=== PATIENT | female | born 1940 | race Caucasian/White ===

== ENCOUNTER 2018-03-22 09:30 | Outpatient (RCR) | payer MEDICARE, BC, SELFPAY ==
--- NOTE | 2018-02-27 09:00 | IE_ITS ---
Date: February 27, 2018 Referring: Susie Arguello NP M.D. Diagnosis: LBP P.T. Diagnosis: Same SUBJECTIVE: History of Present Illness: 'Leda complains of intermittent discomfort throughout the lower lumbar area, which migrates into the buttock region, occasionally posterior aspect of the thighs. This generally occurs when standing or walking for more than a few mins and with prolonged sitting. Does not interfere with her sleeping pattern, no complaints of a.m. stiffness. Generally worse towards the latter part of the day. Does not hurt with coughing or sneezing. A 77 year old female with chronic lumbago, has been more noticeable over the past year to the point where it is difficult for her stand or walk for any prolonged periods. Pain Ratin-7/10 Pain Location: Throughout the lower lumbar area, buttocks and posterior thighs. Current Level of Function: Has difficulty walking for more than a couple 100 feet before sitting, then also occurs after sitting for more than 15-20 mins. She feels better when taking her Ibuprofen, but then was switched to Tylenol recently, she is going to discuss this with her PCP. She can only lift light weights. She finds herself leaning over a shopping cart when grocery shopping. Previous Treatment: No imaging tests performed. Social: , has a home in [facility] and spends 3 months of the winter in [place]. She has given up on gardening, etc. . . due to her discomfort. Comorbidities: Incontinence. Falls in the last year: __X__ No ____Yes - How many? ____ - (if over 2, balance SM needs to be completed) Reported hospitalizations in the last year - __X__ No ____ Yes - Dates of admission/reason: Medications: Tylenol prn Quality of Life: ____ Excellent ____ Good __X__ Fair ____ Poor Standardized Measures: MOLBPDQ: __42%__ OBJECTIVE: Posture: Is obese with accentuated lumbar lordosis and anterior flexed posture , (-) lateral shift. Observation: (behavior, atrophy, skin color, etc.) No abnormal pain behavior noted, pleasant. Gait: Ambulates without assistive device with minimal antalgia bilaterally during stance phase. She is able to heel raise, as well as stand on her heels, but walking on her toes and heels are difficult due to unsteadiness. Palpation: Some increased tenderness throughout the L QL and bilaterally through the piriformis, otherwise non-tender. ROM: Her lumbar movements are significantly limited within an articular pattern, extension is at 0 degrees and sidebending distance between fingertips and lateral joint line of the knees approximately 6. These cause some mild lumbago. Flexion she is able to touch fingertips to floor. Bilateral hip motion is non-irritable with her IR at 30-40 degrees. (She is s/ p bilateral TKA). Joint Accessory Motion: She has hypomobility with PA glides to the lumbar spine with minimal discomfort. Strength: Has full motor control with weak gluteus medius at 4/5. Neuro: Hyporeflexive. Sensation is intact, again has full motor control. Special Tests: (-) SLR bilaterally, hamstring length at approximately 80 degrees, (-) Shelley's test, (-) slump test. She has poor reversal of her lumbar lordosis with flexion. Treatment: Evaluation long with development of a home program. IE: [id number] Therapeutic procedures ([id number]). Direct treatment time: 60 MINS Total treatment time: 60 MINS ASSESSMENT: Patient is a 77-year-old female, referred for PT services with the diagnosis of lumbago. Patient presents with clinical signs and symptoms consistent with this diagnosis and probable spinal stenosis, as demonstrated by the following impairment level findings: significant loss of motion within an articular pattern of lumbar spine, along with difficulty standing for more than 5-10 mins. Impairments are contributing to the following functional limitations: Difficulty standing, walking or sitting for prolonged periods. Patient is assessed as: __X__ Low 12305 ____ Moderate 34635 ____ High 65261 complexity, based on the following: History: (list): Chronic lumbago with probable spinal stenosis. See comorbidities and social history. Examination: (list): X See above for functional limitations and impairments. Presentation: X Stable . Evolving Unstable Decision-Making: Low complexity X Moderate complexity High complexity % Disability based on MOLBPDQ of 42% __X__ Patient requires skilled PT intervention to remediate the above functional limitations to return to: __x__ Improve QOL ____ Other: Prognosis: ____ Excellent ____ Good __x__ Fair ____ Poor G-Codes (fill in modifier after appropriate code): Patient's primary functional limitation is in the category of: __X__ Mobility - walking and moving around : [id number] Projected goal: __X__ Mobility - walking and moving around: [id number] STG: __6__ weeks. 1: Improve lumbar segmental mobility in hopes of increasing her ability to stand and sit for prolonged periods, up to an hour. 2: Improve deconditioned state 3: Desensitize trigger points for less pain. LTG: __12__ weeks. 1: Improve her quality of life. 2: Improvement in her ability to stand for longer than 1 hour PLAN: Session today consisted of the evaluation along with development of a HEP focusing on prone extension, being careful not exacerbate her symptoms. Also issue her a tennis ball for trigger point release techniques. Encourage her to contact her PCP and discuss her medication, the fact that her symptoms have intensified since cutting back on her Ibuprofen and switching to Tylenol, see if there other alternatives, etc. . . Also work on her deconditioned state with core strengthening and some aerobic activities to tolerance, along with manual therapy to the articular and soft tissue structures. If her symptoms persist after a prolonged period of approximately 4-6 weeks, would recommend imaging tests, possible referral to the pain clinic, based on imaging findings, etc. . . Thank you for this referral. Please do not hesitate to contact me with any questions or concerns regarding this patient's plan of care. *Susie, please sign this evaluation and return to PT if you are in agreement with the above stated plan of care. Susie Way NP
--- NOTE | 2018-03-01 11:29 | PTTR_ITS ---
DATE: 03/01/18 OBJECTIVE: Manual therapy: ([id number]). Pt received STM and trigger point release techniques throughout the lower lumbar para spinals, QL, and glute med region. Therapeutic procedures ([id number]). * X Provided skilled instruction in proper exercise performance: Pt completed intrinsic core stabilization ther ex and glute strengthening as per flow flow sheet. Pt required a significant amount of cueing with her ther ex today. I issued pt a HEP with posterior pelvic tilts and kegals. Pt ended today' s session with MHP for 10 min while in prone. Direct treatment time: 35 Total treatment time: 45
--- NOTE | 2018-03-06 09:50 | PTTR_ITS ---
DATE: 03/06/18 SUBJECTIVE: Janett states that she was not compliant with her HEP since she has been seen last. She states that she went to a wedding so they did a lot of driving and she also reports today that she is dizzy. OBJECTIVE: Manual therapy: ([id number]). In the prone position receiving deep tissue mobilization and trigger point release techniques throughout (B) glute med regions, piriformis. Pt was also scanned throughout the lower lumbar QL regions but was non symptomatic. Pt then ended with moist heat in the prone position for 10 minutes. Therapeutic procedures (67319k4). Pt's vitals were taken pre and post see flow sheet for specifics. Pt's vitals were fairly WNL so pt was thinking that her dizziness was a contributor to vertigo. Pt had eaten breakfast this morning so she completed core stabilization, glute strengthening activities as per flow sheet working on deep pelvic floor, intrinsic stabilization activities. Pt required a significant amount of tactile and verbal cueing throughout her session today and we excluded the Nustep today just due to pt's dizziness. Direct treatment time: 40 minutes Total treatment time: 50 minutes
--- NOTE | 2018-03-08 10:50 | PTTR_ITS ---
DATE: 03/08/18 SUBJECTIVE: Pt reports some dizziness especially in the morning or when changing positions i.e. standing from seated. OBJECTIVE: Therapeutic procedures (30350i0). * X See flow sheet: Continued pt's strengthening program for spine stabilization including Kegels, PPT, elevated march. See flow sheet for details. * X Provided skilled instruction in proper exercise performance: Pt requires max verbal cues for proper form and muscle recruitment. * X Provided skilled manual cues to facilitate proper muscle recruitment and/ or movement pattern: Pt requires max tactile cues for proper exercise completion. Manual therapy: ([id number]). Pt in prone, STM to QL, Lumbar paraspinals, upper glute, piriformis. High tone, TPs, tenderness noted along border of sacrum. TPR applied. Pt reports that the sore spots are less intense by end of STM treatment. Blood pressure taken pre and post session. * X Other: Ended session with moist hot pack x 10 minutes Direct treatment time: 40 minutes Total treatment time: 50 minutes
--- NOTE | 2018-03-13 09:30 | PTTR_ITS ---
DATE: 03/13/18 SUBJECTIVE: Peg states that she is about 30% improved compared to pre PT. Her last session with mobilization was most effective. Complaining of some mild lumbago today. OBJECTIVE: I have her go through her movement patterns, flexion is limited due to her abdomen and extension is at +10-15 degrees and non-painful. Sidebending causes some ipsilateral discomfort. I have her lie prone with her face neutral in the plinth opening and she rolls some to the L due to her obesity, I try to keep her spine neutral. I perform soft tissue mobilization with skin rolls, gentle effleurage and then trigger point release techniques to the L QL, R piriformis, gluts, etc. . . Manual therapy: ([id number]). Direct treatment time: 25 mins Total treatment time: 25 mins, then she receives 5 mins of moist heat and has continued care with Kimberly Doss PTA for introducing more core strengthening along with aerobic conditioning, etc. . . (see her note) A: Tolerating session well so far, start pushing her more towards activated program. P: Have Peg monitor response to today's session. Encourage her to develop flow sheet for walking program at home with distance and time. Has a follow up later this week. DLW/dl
--- NOTE | 2018-03-13 11:01 | PTTR_ITS ---
DATE: 03/13/18 OBJECTIVE: Co treatment with PT Jairo Bush Therapeutic procedures (78004o7). * X Provided skilled instruction in proper exercise performance: Pt completed core stabilization ther ex, glute strengthening, functional sit to stands with glute set, and cardio on the Nu Step. Pt was able to tolerate a slight increase in her program today. Pt still requires constant vc's for correction of her mechanics and body mech. Pt's vitals were taken please see flow sheet for specifics. Direct treatment time: 30 Total treatment time: 40
--- NOTE | 2018-03-15 11:39 | PTTR_ITS ---
DATE: 03/15/18 OBJECTIVE: Manual therapy: ([id number]). Pt received DTM and trigger point release techniques throughout bilateral glute med regions, piriformis, and QL's. Therapeutic procedures ([id number]). * X HEP review: I issued pt red thera band as well as a core stabilization program. This program is the same as what we are completing in the clinic. * X Provided skilled instruction in proper exercise performance: Pt completed core stabilization ther ex, glute strengthening, functional sit to stands without the use of her hands, pt ambulation in the clinic for endurance purposes, and the Nu step for cardio. Pt cont to require max vc's for her intrinsic core strengthening. Pt's vitals were taken pre and post session please see flow sheet for specifics. Direct treatment time: 45 Total treatment time: 60
--- NOTE | 2018-03-20 09:53 | PTTR_ITS ---
DATE: 03/20/18 SUBJECTIVE: Pt reports that the am seems to be when she experiences the most discomfort. She states as the day goes on it seems to get better. She reports that her right buttocks seem to be where she has the most pain. OBJECTIVE: Manual therapy: (34481c). Pt received brief DTM and trigger point release techniques throughout the right glute med region while in left side lying. Therapeutic procedures ([id number]). * X Provided skilled instruction in proper exercise performance: Pt completed early core stabilization ther ex, glute strengthening, functional sit to stands, LE strengthening, and cardio as per flow sheet. Pt's vitals were taken please see flow sheet for specifics. Pt did require a seated rest period with ambulation due to SOB and fatigue. Pt received MHP 10 min unattended to the lower lumbar region and the glutes. Direct treatment time: 45 Total treatment time: 60
--- NOTE | 2018-03-22 13:18 | PTTR_ITS ---
DATE: 03/22/18 SUBJECTIVE: Janett states that she is having pain down the side of her right leg, and states that her glute region is sore as well. OBJECTIVE: Manual therapy: ([id number]). In prone she received deep tissue mobilization and trigger point release techniques throughout bilateral glute medius and piriformis regions. The patient was not symptomatic on the left, but on the right was slightly symptomatic throughout the glute medius. Overall, not finding a lot of tissue findings. If the patient is feeling about the same at her next appointment will focus most on her strength and conditioning, which she needs. Therapeutic procedures ([id number]). * x See flow sheet: completion of LE strengthening, i.e. glute strengthening , core stabilization, intrinsic strengthening, functional sit to stand and cardiovascular exercise working on patient ambulation for endurance purposes. Also, used the NuStep. Direct treatment time: 45 minutes Total treatment time: Almost an hour /gc
== END 2018-03-24 23:59 | disposition home or self-care (01) ==
LOC: PT 09:30
PROVIDERS: PCP Internal Medicine; Referring Provider Nurse Practitioner; Visit Provider Nurse Practitioner
DX: M54.5 Low back pain (principal)
CPT/HCPCS: 97110; 97140; 97161; G8978

== ENCOUNTER → 2018-05-30 10:17 | Outpatient (BNVA) | payer MEDICARE, BC, SELFPAY | PROVIDERS: PCP Internal Medicine; Visit Provider Urology | DX: N39.41 Urge incontinence (principal); R35.0 Frequency of micturition | CPT/HCPCS: 99213 ==

== ENCOUNTER 2018-11-07 21:53 | Outpatient (REF) | payer MEDICARE, BC, SELFPAY ==
[2018-11-07 22:11] LABS: ALT 27 U/L (12-78); AST 23 U/L (15-37); Albumin 3.7 g/dL (3.4-5.0); Alkaline Phosphatase 159 U/L (46-116); Anion Gap 11.5 mmol/L (3-11); BUN 12 mg/dL (7-18); Bilirubin, Total 0.8 mg/dL (0.2-1.0); CO2 26.5 mmol/L (21.0-32.0); Calcium 9.6 mg/dL (8.5-10.1); Chloride 100 mmol/L (98-107); Glucose 150 mg/dL (70-100); Potassium 4.6 mmol/L (3.5-5.1); Sodium 138 mmol/L (136-145); TSH (W/Ref FT4) 2.67 uIU/mL (0.358-3.74); Total Protein 6.7 g/dL (6.4-8.2)
== END 2018-11-07 22:13 ==
LOC: NCHCN 21:53
PROVIDERS: PCP Internal Medicine; Visit Provider Nurse Practitioner Family
DX: E03.9 Hypothyroidism, unspecified (principal); I10 Essential (primary) hypertension; E11.9 Type 2 diabetes mellitus without complications; R19.8 Other specified symptoms and signs involving the digestive system and abdomen; R41.3 Other amnesia; M54.5 Low back pain
CPT/HCPCS: 80053; 84443

== ENCOUNTER → 2019-01-23 13:25 | Outpatient (BNVA) | payer MEDICARE, BC, SELFPAY | PROVIDERS: PCP Internal Medicine; Visit Provider Nurse Practitioner Adult Health | DX: R41.3 Other amnesia (principal); R41.89 Other symptoms and signs involving cognitive functions and awareness; E11.42 Type 2 diabetes mellitus with diabetic polyneuropathy; I10 Essential (primary) hypertension | CPT/HCPCS: 99204; 99214 ==

== ENCOUNTER 2019-02-23 02:17 | Outpatient (CLI) | payer MEDICARE, BC, SELFPAY ==
--- NOTE | 2019-02-23 09:34 | DI.MRI_ITS ---
SYMPTOM/DIAGNOSIS: MEMORY LOSS R41.89, COGNITIVE IMPAIRMENT. MRI BRAIN: Routine noncontrast examination. There are no priors for comparison. The ventricles and sulci are prominent diffusely consistent with the patient's age and cerebral atrophy. There are scattered areas of hyperintense signal in the white matter on the T2 and FLAIR images consistent with small vessel ischemic disease. The diffusion weighted images show no evidence of restricted diffusion. The susceptibility images show no evidence of intracranial hemorrhage. The ventricles are intact. The basilar cisterns are patent. No acute midline shift or mass effect is identified. A normal flow void is present in the Bradley of Quiros. The pituitary gland appears grossly unremarkable. The visualized paranasal sinuses are clear. IMPRESSION: Age related cerebral atrophy and small vessel ischemic disease. No evidence of an acute infarct or hemorrhage.
== END 2019-02-23 02:37 ==
PROVIDERS: Visit Provider Nurse Practitioner Adult Health
DX: R41.89 Other symptoms and signs involving cognitive functions and awareness (principal); G31.89 Other specified degenerative diseases of nervous system; G31.84 Mild cognitive impairment of uncertain or unknown etiology; I67.89 Other cerebrovascular disease
CPT/HCPCS: 70551

== ENCOUNTER 2019-03-15 01:52 | Outpatient (CLI) | payer MEDICARE, BC, SELFPAY ==
--- NOTE | 2019-03-15 12:34 | DI.CT_ITS ---
SYMPTOMS/DIAGNOSIS: ABNORMAL BRAIN MRI, CALCIUM VS IRON DEPOSIT, R90.89 CT BRAIN: Noncontrast examination was performed. Comparison MRI is 03/26/15. There is cerebral atrophy consistent with the patient's age. There are areas of decreased attenuation in the white matter consistent with small vessel ischemic disease. There are areas of decreased attenuation on the basal ganglia suggesting old lacunar infarcts. There are a few tiny foci of hyperdensity in the basal ganglia, likely reflecting senile calcification. No acute intracranial hemorrhage, midline shift or mass effect is identified. The ventricles are intact. The basilar cisterns are patent. The calvarium is intact. There is mild sinus disease. The mastoid air cells are well pneumatized. IMPRESSION: Age-related cerebral atrophy and small vessel ischemic disease. Old lacunar infarcts.
== END 2019-03-15 02:12 ==
PROVIDERS: PCP Internal Medicine; Visit Provider Nurse Practitioner Adult Health
DX: R90.89 Other abnormal findings on diagnostic imaging of central nervous system (principal); G31.89 Other specified degenerative diseases of nervous system; Z86.73 Personal history of transient ischemic attack (TIA), and cerebral infarction without residual deficits
CPT/HCPCS: 70450

== ENCOUNTER 2019-04-05 11:35 | Outpatient (CLI) | payer MEDICARE, BC, SELFPAY ==
[2019-04-05 13:27] LABS: Glucose 234 mg/dL (70-100)
== END 2019-04-05 11:55 ==
PROVIDERS: PCP Internal Medicine; Visit Provider Nurse Practitioner
DX: E11.37X3 Type 2 diabetes mellitus with diabetic macular edema, resolved following treatment, bilateral (principal)
CPT/HCPCS: 36415; 82947

== ENCOUNTER → 2019-04-30 09:48 | Outpatient (BNVA) | payer MEDICARE, BC, SELFPAY | PROVIDERS: PCP Internal Medicine; Visit Provider Nurse Practitioner Adult Health | DX: R41.89 Other symptoms and signs involving cognitive functions and awareness (principal); E11.42 Type 2 diabetes mellitus with diabetic polyneuropathy; Z79.84 Long term (current) use of oral hypoglycemic drugs; I10 Essential (primary) hypertension | CPT/HCPCS: 99213 ==

== ENCOUNTER 2019-05-24 17:52 | Outpatient (REF) | payer MEDICARE, BC, SELFPAY | END 2019-05-24 18:12 | LOC: NCHCN 17:52 | PROVIDERS: PCP Internal Medicine; Visit Provider Nurse Practitioner Family | DX: N39.0 Urinary tract infection, site not specified (principal) | CPT/HCPCS: 87077; 87086; 87186 ==

== ENCOUNTER 2019-05-25 00:49 | Outpatient (CLI) | payer MEDICARE, BC, SELFPAY ==
[2019-05-25 14:47] LABS: Vitamin B12 229 pg/mL (193-986)
== END 2019-05-25 01:09 ==
PROVIDERS: PCP Internal Medicine; Visit Provider Nurse Practitioner Adult Health
DX: R41.89 Other symptoms and signs involving cognitive functions and awareness (principal)
CPT/HCPCS: 36415; 82607

== ENCOUNTER 2019-06-07 13:32 | Outpatient (REF) | payer MEDICARE, BC, SELFPAY | END 2019-06-07 13:52 | LOC: NCHCN 13:32 | PROVIDERS: PCP Internal Medicine; Visit Provider Nurse Practitioner Family | DX: N39.0 Urinary tract infection, site not specified (principal) | CPT/HCPCS: 87086 ==

== ENCOUNTER 2019-06-11 13:53 | Outpatient (REF) | payer MEDICARE, BC, SELFPAY | END 2019-06-11 14:13 | LOC: NCHCN 13:53 | PROVIDERS: PCP Internal Medicine; Visit Provider Nurse Practitioner Family | DX: N39.0 Urinary tract infection, site not specified (principal) | CPT/HCPCS: 87077; 87086; 87186 ==

== ENCOUNTER 2019-10-30 15:37 | Outpatient (REF) | payer MEDICARE, BC, SELFPAY ==
[2019-10-30 20:31] LABS: ALT 28 U/L (14-59); AST 26 U/L (15-37); Alkaline Phosphatase 137 U/L (46-116); BUN 10 mg/dL (7-18); Bilirubin, Total 0.8 mg/dL (0.2-1.0); CREATININE 1.02 mg/dL (0.55-1.02); Calcium 9.5 mg/dL (8.5-10.1); Chloride 99 mmol/L (98-107); Estimated GFR 52.28 (mL/min/1.73m2); Glucose 106 mg/dL (74-106); Potassium 4.5 mmol/L (3.5-5.1); Sodium 136 mmol/L (136-145); TSH (W/Ref FT4) 1.99 uIU/mL (0.36-3.74); Vitamin B12 905 pg/mL (193-986)
== END 2019-10-30 15:57 ==
LOC: NCHCN 15:37
PROVIDERS: PCP Internal Medicine; Visit Provider Nurse Practitioner Family
DX: E11.9 Type 2 diabetes mellitus without complications (principal); E03.9 Hypothyroidism, unspecified; I10 Essential (primary) hypertension; E88.81 Metabolic syndrome and other insulin resistance; R32 Unspecified urinary incontinence
CPT/HCPCS: 80053; 82607; 83036; 84443; 87086

== ENCOUNTER 2019-12-27 02:43 | Outpatient (CLI) | payer MEDICARE, BC, SELFPAY ==
--- NOTE | 2019-12-27 | DI.RAD_ITS ---
EXAM: XR LUMBAR SPINE COMPLETE CLINICAL HISTORY: LOW BACK PAIN, M54.5, RT-SIDED RADICULOPATHY TECHNIQUE: COMPARISON: No exams were available for comparison FINDINGS: Five views were obtained. There are moderate degenerative changes of both hips. There are sclerotic changes of the pubic bones bilaterally, presumably osteitis condensans bravo I. There is multilevel disc space narrowing in the lumbar spine multilevel vacuum disc phenomena noted a s well, these findings are consistent with disc degeneration, L1-2 L2-3 4 5 and L5-S1 levels. Very p rominent hypertrophic changes of facet joints noted throughout the lumbar region. Prominent hypertro phic endplate spurring also noted at multiple levels. No compression fracture. No spondylolysis or spondylolisthesis. IMPRESSION: Severe degenerative changes of the lumbar spine as described above. No evidence of fracture.
== END 2019-12-27 03:03 ==
PROVIDERS: PCP Internal Medicine; Visit Provider Physician Assistant
DX: M54.5 Low back pain (principal); M54.16 Radiculopathy, lumbar region; M16.0 Bilateral primary osteoarthritis of hip; M51.17 Intervertebral disc disorders with radiculopathy, lumbosacral region
CPT/HCPCS: 72110

== ENCOUNTER → 2020-01-15 12:21 | Outpatient (BNVA) | payer MEDICARE, BC, SELFPAY | PROVIDERS: PCP Internal Medicine; Referring Provider Internal Medicine; Visit Provider Nurse Practitioner Gerontology | DX: N39.41 Urge incontinence (principal); N32.81 Overactive bladder | CPT/HCPCS: 99213 ==

== ENCOUNTER → 2020-01-16 10:20 | Outpatient (BNVA) | payer MEDICARE, BC, SELFPAY | PROVIDERS: PCP Internal Medicine; Referring Provider Internal Medicine; Visit Provider Nurse Practitioner Adult Health | DX: G31.84 Mild cognitive impairment of uncertain or unknown etiology (principal); E11.40 Type 2 diabetes mellitus with diabetic neuropathy, unspecified; Z79.84 Long term (current) use of oral hypoglycemic drugs; I10 Essential (primary) hypertension | CPT/HCPCS: 99213 ==

== ENCOUNTER 2020-09-22 21:44 | Outpatient (REF) | payer MEDICARE, BC, SELFPAY ==
[2020-09-22 21:51] LABS: Abs Immature Grans 0.04 10^3/uL (0.0-0.06); Absolute Basophil Count 0.06 10^3/uL (0.0-0.2); Absolute Eosinophil Count 0.68 10^3/uL (0.0-0.7); Absolute Lymphocyte Count 1.26 10^3/uL (1.2-3.4); Absolute Monocyte Count 1.02 10^3/uL (0.1-0.8); Absolute Neutrophil Count 7.68 10^3/uL (1.2-6.7); Basophils % 0.6; Eosinophils % 6.3; HCT 42.6 % (36.0-46.0); HGB 14.2 g/dL (11.2-15.7); Immature Grans % 0.4; Lymphocytes % 11.7; MCH 33.3 pg (27.0-33.0); MCHC 33.3 % (32.0-36.0); MCV 99.8 fL (80-95); Monocytes % 9.5; Neutrophils % 71.5; Nucleated RBC 0 %; Platelet Count 279 10^3/uL (130-400); RBC 4.27 10^6/uL (3.93-5.22); RDW 13.2 % (11.7-14.6); RDW-SD 48.3 fL; WBC 10.74 10^3/uL (4.4-10.8)
[2020-09-22 22:27] LABS: ALT 24 U/L (14-59); AST 18 U/L (15-37); Albumin 3.7 g/dL (3.4-5.0); Alkaline Phosphatase 168 U/L (46-116); Anion Gap 8.9 mmol/L (3-11); BUN 17 mg/dL (7-18); Bilirubin, Total 0.7 mg/dL (0.2-1.0); CO2 26.1 mmol/L (21.0-32.0); CREATININE 0.9 mg/dL (0.55-1.02); Calcium 9.7 mg/dL (8.5-10.1); Chloride 104 mmol/L (98-107); Glucose 192 mg/dL (74-106); Potassium 4.5 mmol/L (3.5-5.1); Sodium 139 mmol/L (136-145); TSH (W/Ref FT4) 2.29 uIU/mL (0.36-3.74); Total Protein 6.7 g/dL (6.4-8.2)
[2020-09-22 22:29] LABS: Vitamin B12 > 2000 pg/mL (193-986)
== END 2020-09-22 21:45 | disposition home or self-care (01) ==
LOC: NCHCN 21:44
PROVIDERS: PCP Internal Medicine; Visit Provider Nurse Practitioner Family
DX: R41.3 Other amnesia (principal); R23.8 Other skin changes; M54.5 Low back pain; R19.8 Other specified symptoms and signs involving the digestive system and abdomen; R13.10 Dysphagia, unspecified; E11.9 Type 2 diabetes mellitus without complications; F32.9 Major depressive disorder, single episode, unspecified; I10 Essential (primary) hypertension
CPT/HCPCS: 80053; 82607; 84443; 85025

== ENCOUNTER 2020-11-07 15:27 | Outpatient (CLI) | payer MEDICARE, BC, SELFPAY ==
--- NOTE | 2020-11-07 | DI.US_ITS ---
EXAM: US PELVIS TRANSVAGINAL CLINICAL HISTORY: POSTMENOPAUSAL VAGINAL BLEEDING, N95.0 TECHNIQUE: Ultrasound performed using standard protocol. COMPARISON: US PELVIS TRANSVAG from 03/01/2011 FINDINGS: Pelvic ultrasound was performed transabdominally and transvaginally. Uterus measures 7.9 x 3.9 x 5.3 cm, myometrium appears fairly homogeneous. The endometrium is markedly thickened and appears heterogeneous with probable increased vascularity. This is an abnormal finding in a postmenopausal patient, possibility of endometrial neoplasm is not excluded and tissue sampling is recommended. The ovaries are not ideally seen but appear grossly unremarkable, right ovary measures 28 x 18 x 18 m illimeters and left ovary measures 27 x 16 x 22 millimeters. Limited scanning of the kidneys is unremarkable. IMPRESSION: Markedly abnormal thickened endometrium in a postmenopausal patient. Endometrial biopsy is recommend ed. DATA REPOSITORY:
--- NOTE | 2020-11-07 16:20 | DI.VRAD_ITS ---
PROCEDURE INFORMATION: Exam: US Pelvis Complete, Transabdominal and US Pelvis, Transvaginal Exam date and time: 11/07/2020 12:21 PM Age: 80 years old Clinical indication: Menstruation abnormalities; Postmenopausal bleeding; Patient HX: Heavy post-menopausal bleeding x 3 days. TECHNIQUE: Imaging protocol: Real-time transabdominal and transvaginal pelvic ultrasound (complete) with image documentation. Transvaginal imaging was used for better evaluation of the endometrium, adnexa, and/or cervix. COMPARISON: No relevant prior studies available. FINDINGS: Uterus/cervix: Uterus measures 79 x 39 x 53 mm. Endometrial thickness 2.8 cm. The endometrium was difficult to evaluate but appears vascular. Right adnexa: Right ovary measures 28 x 18 x 18 mm. The no mass identified. Left adnexa: Left ovary measures 27 x 16 x 22 mm. No mass identified. Intraperitoneal space: No intraperitoneal fluid. Urinary bladder: Normal. Right kidney: Right kidney measures 10.7 cm in length. Left kidney: Left kidney measures 9.6 cm in length. IMPRESSION: Abnormally thickened and vascular endometrium. In the setting of postmenopausal bleeding, endometrial sampling should be considered. Dictated and Authenticated by: Didi Zuñiga MD. Ordering:CONSTANTIN Santo MD
== END 2020-11-07 15:47 ==
PROVIDERS: PCP Internal Medicine; Visit Provider Nurse Practitioner Family
DX: N95.0 Postmenopausal bleeding (principal); R93.89 Abnormal findings on diagnostic imaging of other specified body structures
CPT/HCPCS: 76830; 76856

== ENCOUNTER 2020-11-07 16:38 | Emergency (ER) | payer MEDICARE, BC, SELFPAY ==
--- NOTE | 2020-11-07 16:39 | ED.GENADUL_ITS ---
Discharge Plan Disposition Patient Disposition: HOME Condition: Stable Discharge Details Clinical Impression: Abnormal vaginal bleeding, Thickened endometrium Primary Care Provider: King Ramos ED Provider: Norma Anders Home Meds and New Rx's Prescriptions: Continued lisinopril 20 mg tablet 20 mg PO DAILY RF: 0 acetaminophen [Tylenol] 325 mg tablet 325 mg PO QID PRN (Reason: pain) RF: 0 citalopram 20 mg tablet 20 mg PO DAILY Qty: 30 RF: 6 Myrbetriq 50 mg tablet extended release 24 hr 50 mg PO DAILY Qty: 90 RF: 3 cholecalciferol (vitamin D3) [Vitamin D3] 2,000 UNIT capsule 5,000 unit PO DAILY RF: 0 atorvastatin 10 MG tablet 10 mg PO DAILY RF: 0 levothyroxine 50 MCG tablet 25 mcg PO DAILY RF: 0 metformin 1,000 MG tablet 1,000 mg PO DAILY RF: 0 Discharge Instructions Instructions: Abnormal (Dysfunctional) Uterine Bleeding (ED) Additional Instructions: The plan is for you to follow-up with Dr. Mann at the beginning of next week. She is through [facility]. Please call Tuesday morning to schedule appointment, number listed below. Your imaging today shows a thickened endometrium and will need a biopsy, the plan is for this to be performed in the office at this appointment. If in the interim if you develop weakness, fatigue, increase in bleeding, pain o r other new/worsening symptoms please seek care urgently once again. Referrals: Pam Mann MD [ [facility] STAFF PHYSICIAN] - King Ramos MD [Primary Care Provider] - Discharge Data Discharge Date/Time-TO BE ENTERED AT DEPARTURE: 11/07/20 18:12 Medical Decision Making Patient is a pleasant 80-year-old female, accompanied by significant other, presenting today with chief complaint of vaginal bleeding. Patient had outpatient ultrasound performed during which time clots were noted to be in the toilet. Investor Relations Coordinator corrections identification technician then contact the patient's primary care who advised she be evaluated in the emergency department. Patient reports the bleeding began 3 to 4 days ago and has been quite light. She states typically it's been spotting on a pad which she states she changes about twice a day. However, noted increase in bleeding this afternoon. She did not feel lightheaded, woozy, weak. She denies any vaginal discomfort. No abdominal pain. Denies any melena or hematochezia. No hematuria. No petechia. Denies any gingival bleeding. Past surgical history is pertinent for cholecystectomy. Deon schmidt had two spontaneous vaginal deliveries. Denies any other episodes of postmenopausal bleeding. On exam, patient appears nontoxic. Vital signs are stable. Abdominal exam is benign. Will obtain baseline labs. Plan for consultation with gynecology once these return Ultrasound was completed prior to her arrival was reviewed by radiologist: FINDINGS: Uterus/cervix: Uterus measures 79 x 39 x 53 mm. Endometrial thickness 2.8 cm. The endometrium was difficult to evaluate but appears vascular. Right adnexa: Right ovary measures 28 x 18 x 18 mm. The no mass identified. Left adnexa: Left ovary measures 27 x 16 x 22 mm. No mass identified. Intraperitoneal space: No intraperitoneal fluid. Urinary bladder: Normal. Right kidney: Right kidney measures 10.7 cm in length. Left kidney: Left kidney measures 9.6 cm in length. IMPRESSION: Abnormally thickened and vascular endometrium. In the setting of postmenopausal bleeding, endometrial sampling should be considered. Labs reviewed. Patient does have a white count of 12.5, I do not see any indication suggest infection. She had no abdominal tenderness on exam. Reports being afebrile. No vaginal discharge prior to the onset of bleeding few days ago. Coagulations normal. CMP significant for an elevated alk phos of 161, this is baseline for the patient. Patient H&H is stable Discussed these findings with the patient. Vaginal exam was performed. Patient had occult blood when she moved. However, internal vaginal exam does not show any clots or significant active bleeding. She did have some difficulty with positioning which is limit my exam. However, I do not see any evidence of trauma, nor does her history match this. More likely, bleeding is associated with the patients thickened endometrium Consulted with Dr. Mann. Reviewed the findings of the patient's labs and imaging. She plans to biopsy the patient in the office at the beginning of the week. I discussed these recommendations with the patient and her . They will call the office on Tuesday to schedule appointment. Strict return precautions were discussed. All of her questions and concerns were addressed and she is in agreement with this plan HPI General Mode of arrival: wheelchair . Date/Time Provider Initiated Documentation: 11/07/20 16:38 . Limitations to Documentation: no limitations . Information obtained by: patient, family () and RN notes reviewed . History of Present Illness 80 year old F presents to the emergency department with the chief complaint of vaginal bleeding, described as moderate (patient reports mild, increased this afternoon), Quality is described as other (patient denies any pain), and is localized to the genitals. Patient reports no radiation. Patient started experiencing this day(s) (3-4) and it has been constant. No relieving factors improve symptom(s), No exacerbating factors reported . Patient notes no other symptoms.. Patient did receive the following treatments prior to arrival, none Related Data Home Medications Medication Instructions Recorded Confirmed cholecalciferol (vitamin D3) 5,000 unit PO DAILY NS 01/22/13 11/07/20 [Vitamin D3] atorvastatin 10 mg PO DAILY tab-cap 07/05/16 11/07/20 levothyroxine 25 mcg PO DAILY tab-cap 07/05/16 11/07/20 metformin 1,000 mg PO DAILY 07/05/16 11/07/20 lisinopril 20 mg tablet 20 mg PO DAILY tab-cap NS 11/14/18 11/07/20 mirabegron 50 mg tablet,extended 50 mg PO DAILY #90 tab-cap 01/15/20 11/07/20 release 24 hr acetaminophen 325 mg tablet 325 mg PO QID PRN tab 01/16/20 11/07/20 citalopram 20 mg tablet 20 mg PO DAILY #30 tab 01/16/20 11/07/20 Previous Rx's Medication Instructions Recorded mirabegron 50 mg tablet,extended 50 mg PO DAILY #90 tab-cap 01/15/20 release 24 hr citalopram 20 mg tablet 20 mg PO DAILY #30 tab 01/16/20 Allergies Allergy/AdvReac Type Severity Reaction Status Date / Time No Known Allergies Allergy Unverified 01/16/20 10:33 Review of Systems Constitutional Constitutional: Reports as per HPI, Denies chills, Denies fatigue, Denies fever(s) and Denies headache(s) ENT Ears, Nose, Mouth, and Throat: Denies headache(s) Cardiovascular Cardiovascular: Reports as per HPI, Denies chest pain and Denies dyspnea Respiratory Respiratory: Reports as per HPI, Denies cough and Denies dyspnea Gastrointestinal Gastrointestinal: Reports as per HPI Genitourinary Genitourinary: Reports as per HPI, Reports abnormal vaginal bleeding, Denies dysuria, Denies flank pain, Denies vaginal discharge (none prior to start of bleeding 3-4days ago), Denies vaginal odor and Denies vaginal pruritus Musculoskeletal Musculoskeletal: Reports as per HPI and Denies back pain Integumentary/Breasts Skin/Breast: Reports as per HPI and Denies rash Neurologic Neurologic: Reports as per HPI and Denies headache(s) Endocrine Endocrine: Denies fatigue Hematologic/Lymphatic Hematologic/Lymphatic: Denies easy bleeding and Denies easy bruising [facility] Medical History (Updated 11/07/20 @ 17:51 by AURELIANO Agudelo) Anxiety Depression Diabetes mellitus type 2 in obese Dry mouth Dysphagia Frequent falls Hypercholesteremia Hypertension Hypothyroidism Irregular bowel habits Lordosis Low back pain Memory loss Metabolic syndrome Mild cognitive impairment Neuropathy Obstructive sleep apnea Onychomycosis Sensorineural hearing loss Urinary incontinence Vertigo Surgical History Hx of cholecystectomy Status post bilateral knee replacements Family History Brother Heart disease Dementia Depression Father Heart disease Dementia Depression Mother Dementia Depression Social History Smoking/Tobacco Use Status: Never Smoking risk assessment performed?: Yes Alcohol Intake: current Alcohol Intake frequency: holidays/special occasions only Drug use: Never Household members: spouse Housing: house What is your relationship status?: Panel score (0-1 are the most socially isolated patients): 1 Seatbelt use: always Do you feel safe at home: Yes Do you feel safe in your relationship?: Yes Exam Const General: cooperative, healthy appearing, comfortable, no acute distress and well developed Nutritional Appearance: well nourished and obese Orientation: alert and awake HENMO Head: normal to inspection Mouth: moist mucous membranes Resp Effort & Inspection: normal respiratory effort, able to speak in complete sentences and no respiratory distress Auscultation: clear to auscultation bilaterally, no rales, no rhonchi and no wheezes Cardio Rate: regular rate Rhythm: regular rhythm Heart Sounds: S1 normal and S2 normal GI Inspection: normal to inspection Palpation: soft, no hepatosplenomegaly and nontender Auscultation: normal bowel sounds External Female Exam: normal external appearance, no erythema, no tenderness externally, no external swelling, no lesions, no lacerations and no ecchymosis Speculum Exam - Vagina: normal appearance of the vagina, vagina not atrophic, not erythematous, no lacerations, no lesions, vaginal bleeding, no swelling and nontender Speculum Exam - Cervix: other (difficulty visualizing, patient had some discomfort with positioning) OB/External & Speculum: vaginal bleeding Back/Spine/Pelvis Back: no CVA tenderness Skin General skin exam: no rashes or lesions noted Trauma: no lacerations or abrasions Neuro General: patient alert and patient awake Cognition: normal cognition Speech: speech normal Gait: normal gait Extrem General: no pedal edema and no calf tenderness Psych Appearance: grossly normal and well kempt Mental Status: mental status grossly normal Speech and Movement: speech and movement normal
[2020-11-07 16:43] VITALS: BP 130/89; PULSE 90; RESP 18; TEMP 36.4; O2SAT 96
[2020-11-07 17:04] LABS: Abs Immature Grans 0.06 10^3/uL (0.0-0.06); Absolute Basophil Count 0.08 10^3/uL (0.0-0.2); Absolute Eosinophil Count 1.06 10^3/uL (0.0-0.7); Absolute Lymphocyte Count 1.76 10^3/uL (1.2-3.4); Absolute Monocyte Count 1.28 10^3/uL (0.1-0.8); Absolute Neutrophil Count 8.41 10^3/uL (1.2-6.7); Basophils % 0.6; Eosinophils % 8.4; HCT 42.6 % (36.0-46.0); HGB 14.3 g/dL (11.2-15.7); Immature Grans % 0.5; Lymphocytes % 13.9; MCHC 33.6 % (32.0-36.0); MCV 98.4 fL (80-95); MPV 10.1 fL (8.0-11.0); Monocytes % 10.1; Neutrophils % 66.5; Nucleated RBC 0 %; Platelet Count 286 10^3/uL (130-400); RBC 4.33 10^6/uL (3.93-5.22); RDW 13.2 % (11.7-14.6); RDW-SD 48.4 fL; WBC 12.65 10^3/uL (4.4-10.8)
[2020-11-07 17:23] LABS: ALT 22 U/L (14-59); AST 18 U/L (15-37); Albumin 3.8 g/dL (3.4-5.0); Alkaline Phosphatase 161 U/L (46-116); Anion Gap 10.8 mmol/L (3-11); BUN 12 mg/dL (7-18); Bilirubin, Total 0.8 mg/dL (0.2-1.0); CO2 26.2 mmol/L (21.0-32.0); CREATININE 0.9 mg/dL (0.55-1.02); Calcium 9.7 mg/dL (8.5-10.1); Chloride 102 mmol/L (98-107); Glucose 116 mg/dL (74-106); Potassium 4.3 mmol/L (3.5-5.1); Sodium 139 mmol/L (136-145); Total Protein 7.3 g/dL (6.4-8.2)
[2020-11-07 17:47] LABS: PTT Activated 23.6 sec (21.0-27.5)
== END 2020-11-07 18:12 | disposition home or self-care (01) ==
PROVIDERS: Emergency Provider Physician Assistant; PCP Internal Medicine
DX: N93.8 Other specified abnormal uterine and vaginal bleeding (principal); R93.89 Abnormal findings on diagnostic imaging of other specified body structures
CPT/HCPCS: 80053; 86850; 86900; 86901; 99282; 76830; 76856; 85025; 85610; 85730; 99283

== ENCOUNTER 2020-11-11 14:21 | Outpatient (REF) | payer MEDICARE, BC, SELFPAY ==
--- NOTE | 2020-11-11 11:30 | ENDOMET_PTH ---
PATIENT: Janett Angulo LOC: [facility] U#:[id number] AGE/SX: 80/F ROOM: RE11/11/[address]: Luz Maria Jean DO : 1940 BED: DIS: 11/11/2020 SPEC #: [id number] RECD: 11/11/20 17:29 STATUS: [place] REQ #: [id number] JUSTIN: 11/11/20 11:[address]: Luz Maria Jean DEPT: Surgical Specimen RECD BY: Laruen Ribera ENTERED: 11/11/20 17:30 SP TYPE: Endomet OTHR DR: King Ramos Tissues: 1 - ENDOMETRIUM BX/VEMLA Procedures: GROSS AND MICRO LEVEL 4 Comments: [id number]
== END 2020-11-11 14:22 | disposition home or self-care (01) ==
LOC: LBN 14:21
PROVIDERS: PCP Internal Medicine; Visit Provider Obstetrics & Gynecology
DX: N95.0 Postmenopausal bleeding (principal)
CPT/HCPCS: 88305

== ENCOUNTER 2020-12-19 02:32 | Outpatient (CLI) | payer MEDICARE, BC, SELFPAY ==
[2020-12-19 10:29] LABS: Source Nasal/Nares
[2020-12-19 16:26] LABS: COVID-19 PCR Negative (Negative)
== END 2020-12-19 02:33 | disposition home or self-care (01) ==
LOC: LBO 02:34
PROVIDERS: PCP Internal Medicine; Visit Provider Obstetrics & Gynecology Gynecologic Oncology
DX: Z20.822 Contact with and (suspected) exposure to COVID-19 (principal); Z01.818 Encounter for other preprocedural examination
CPT/HCPCS: 87635

== ENCOUNTER → 2020-12-31 10:28 | Outpatient (BNVA) | payer MEDICARE, BC, SELFPAY | PROVIDERS: PCP Internal Medicine; Referring Provider Internal Medicine; Visit Provider Nurse Practitioner Adult Health | DX: G31.84 Mild cognitive impairment of uncertain or unknown etiology (principal); G47.33 Obstructive sleep apnea (adult) (pediatric); F32.9 Major depressive disorder, single episode, unspecified | CPT/HCPCS: 99213; 99214 ==

== ENCOUNTER → 2021-01-06 10:28 | Outpatient (BNVA) | payer MEDICARE, BC, SELFPAY | PROVIDERS: PCP Internal Medicine; Referring Provider Internal Medicine; Visit Provider Nurse Practitioner Gerontology | DX: N39.41 Urge incontinence (principal); N32.81 Overactive bladder | CPT/HCPCS: 81003; 99214 ==

== ENCOUNTER 2021-01-06 14:56 | Outpatient (REF) | payer MEDICARE, BC, SELFPAY | END 2021-01-06 14:57 | disposition home or self-care (01) | LOC: LBN 14:56 | PROVIDERS: PCP Internal Medicine; Visit Provider Nurse Practitioner Gerontology | DX: R30.0 Dysuria (principal); R35.0 Frequency of micturition; N39.41 Urge incontinence | CPT/HCPCS: 87077; 87086; 87186 ==

== ENCOUNTER 2021-01-21 15:15 | Outpatient (REF) | payer MEDICARE, BC, SELFPAY ==
[2021-01-21 22:11] LABS: Bilirubin Negative (Negative); Blood Negative (Negative); Clarity Clear (Clear); Glucose Negative (Negative); Ketones Negative (Negative); Leukocyte Esterase Trace (Negative); Nitrite Negative (Negative); Specific Gravity 1.025 (1.005-1.025); pH 5.5 (5-8)
[2021-01-21 22:39] LABS: Bacteria Moderate HPF (Negative); C & S Indicated? Yes; Casts Negative LPF (Negative); Crystals Negative HPF (Negative); Epithelial Cells Few HPF (Negative); Mucus Negative (Negative); Other Cells Negative (Negative); RBC 0-2 HPF (0-2)
== END 2021-01-21 15:16 | disposition home or self-care (01) ==
LOC: NCHCN 15:15
PROVIDERS: PCP Internal Medicine; Visit Provider Nurse Practitioner Family
DX: N30.00 Acute cystitis without hematuria (principal)
CPT/HCPCS: 87077; 81003; 81015; 87086; 87186

== ENCOUNTER → 2021-01-22 15:01 | Outpatient (BNVA) | payer MEDICARE, BC, SELFPAY | PROVIDERS: PCP Internal Medicine; Referring Provider Internal Medicine; Visit Provider Nurse Practitioner Gerontology | DX: N39.0 Urinary tract infection, site not specified (principal) | CPT/HCPCS: 99213 ==

== ENCOUNTER → 2021-02-12 13:25 | Outpatient (BNVA) | payer MEDICARE, BC, SELFPAY | PROVIDERS: PCP Internal Medicine; Referring Provider Internal Medicine; Visit Provider Nurse Practitioner Gerontology | DX: N39.41 Urge incontinence (principal); R35.0 Frequency of micturition | CPT/HCPCS: 99213 ==

== ENCOUNTER 2021-02-13 19:18 | Outpatient (REF) | payer MEDICARE, BC, SELFPAY ==
[2021-02-13 17:13] LABS: Bilirubin Negative (Negative); Blood Negative (Negative); Clarity Turbid (Clear); Glucose Negative (Negative); Ketones Negative (Negative); Leukocyte Esterase Negative (Negative); Nitrite Negative (Negative); Specific Gravity >= 1.030 (1.005-1.025); pH 5.5 (5-8)
== END 2021-02-13 19:19 | disposition home or self-care (01) ==
LOC: LBN 19:18
PROVIDERS: PCP Internal Medicine; Visit Provider Nurse Practitioner Gerontology
DX: R35.0 Frequency of micturition (principal); N39.41 Urge incontinence
CPT/HCPCS: 87077; 81003; 87086; 87186

== ENCOUNTER 2021-02-16 02:11 | Outpatient (CLI) | payer MEDICARE, BC, SELFPAY ==
[2021-02-16 09:43] LABS: Estimated GFR 53.35 (mL/min/1.73m2)
== END 2021-02-16 02:12 | disposition home or self-care (01) ==
LOC: LBO 02:12
PROVIDERS: PCP Internal Medicine; Visit Provider Radiology Radiation Oncology
DX: C54.1 Malignant neoplasm of endometrium (principal)
CPT/HCPCS: 36415; 82565

== ENCOUNTER 2021-02-19 04:27 | Outpatient (CLI) | payer MEDICARE, BC, SELFPAY ==
[2021-02-19 12:43] LABS: Estimated GFR 53.35 (mL/min/1.73m2)
== END 2021-02-19 04:28 | disposition home or self-care (01) ==
LOC: LBO 04:27
PROVIDERS: PCP Internal Medicine; Visit Provider Radiology Radiation Oncology
DX: C54.1 Malignant neoplasm of endometrium (principal)
CPT/HCPCS: 36415; 82565

== ENCOUNTER 2021-02-23 20:45 | Outpatient (REF) | payer MEDICARE, BC, SELFPAY | END 2021-02-23 20:46 | disposition home or self-care (01) | LOC: NCHCN 20:45 | PROVIDERS: PCP Internal Medicine; Visit Provider Nurse Practitioner Family | DX: N30.00 Acute cystitis without hematuria (principal) | CPT/HCPCS: 87077; 87086; 87186 ==

== ENCOUNTER 2021-03-17 14:36 | Outpatient (REF) | payer MEDICARE, BC, SELFPAY ==
[2021-03-17 15:59] LABS: Bilirubin Negative (Negative); Blood Negative (Negative); Clarity Clear (Clear); Glucose Negative (Negative); Ketones Negative (Negative); Leukocyte Esterase Trace (Negative); Nitrite Negative (Negative); Specific Gravity >= 1.030 (1.005-1.025); pH 5.5 (5-8)
[2021-03-17 16:24] LABS: Bacteria Moderate HPF (Negative); C & S Indicated? No/Sq. Contamination; Casts Negative LPF (Negative); Crystals Negative HPF (Negative); Epithelial Cells Many HPF (Negative); Mucus Heavy (Negative); RBC Negative HPF (0-2); WBC >50 HPF (0-5)
== END 2021-03-17 14:37 | disposition home or self-care (01) ==
LOC: LBN 14:36
PROVIDERS: PCP Internal Medicine; Visit Provider Radiology Radiation Oncology
DX: R30.0 Dysuria (principal)
CPT/HCPCS: 81003; 81015

== ENCOUNTER 2021-03-18 02:56 | Outpatient (CLI) | payer MEDICARE, BC, SELFPAY ==
[2021-03-18 11:24] LABS: Abs Immature Grans 0.04 10^3/uL (0.0-0.06); Absolute Basophil Count 0.03 10^3/uL (0.0-0.2); Absolute Eosinophil Count 0.43 10^3/uL (0.0-0.7); Absolute Lymphocyte Count 0.35 10^3/uL (1.2-3.4); Basophils % 0.5; Eosinophils % 6.5; HGB 12.8 g/dL (11.2-15.7); Immature Grans % 0.6; Lymphocytes % 5.3; MCH 32.3 pg (27.0-33.0); MCHC 32.8 % (32.0-36.0); MCV 98.5 fL (80-95); MPV 9.3 fL (8.0-11.0); Neutrophils % 78.1; Nucleated RBC 0 %; Platelet Count 199 10^3/uL (130-400); RBC 3.96 10^6/uL (3.93-5.22); RDW-SD 50.4 fL; WBC 6.65 10^3/uL (4.4-10.8)
== END 2021-03-18 02:57 | disposition home or self-care (01) ==
LOC: LBO 02:56
PROVIDERS: PCP Internal Medicine; Visit Provider Radiology Radiation Oncology
DX: C54.1 Malignant neoplasm of endometrium (principal)
CPT/HCPCS: 36415; 85025

== ENCOUNTER 2021-03-19 17:37 | Outpatient (REF) | payer MEDICARE, BC, SELFPAY ==
[2021-03-19 15:11] LABS: Clarity Cloudy (Clear)
[2021-03-19 15:12] LABS: Specific Gravity 1.023 (1.005-1.025)
[2021-03-19 15:16] LABS: Bacteria Many HPF (Negative); Crystals Negative HPF (Negative); Epithelial Cells Few HPF (Negative); Mucus Trace (Negative); WBC >50 HPF (0-5)
[2021-03-19 15:17] LABS: C & S Indicated? Yes; Casts Negative LPF (Negative)
== END 2021-03-19 17:38 | disposition home or self-care (01) ==
LOC: LBN 17:37
PROVIDERS: PCP Internal Medicine; Visit Provider Radiology Radiation Oncology
DX: R30.0 Dysuria (principal)
CPT/HCPCS: 87077; 81003; 81015; 87086; 87186

== ENCOUNTER 2021-04-14 18:53 | Outpatient (REF) | payer MEDICARE, BC, SELFPAY ==
[2021-04-14 19:31] LABS: Bilirubin Negative (Negative); Blood Negative (Negative); Clarity Turbid (Clear); Glucose Negative (Negative); Ketones Negative (Negative); Leukocyte Esterase Negative (Negative); Nitrite Negative (Negative); Specific Gravity >= 1.030 (1.005-1.025); Urobilinogen 0.2 EU/dL (Up TO 0.2); pH 5.5 (5-8)
== END 2021-04-14 18:54 | disposition home or self-care (01) ==
LOC: LBN 18:53
PROVIDERS: PCP Internal Medicine; Visit Provider Radiology Radiation Oncology
DX: R30.0 Dysuria (principal)
CPT/HCPCS: 81003

== ENCOUNTER 2021-05-13 15:39 | Outpatient (REF) | payer MEDICARE, BC, SELFPAY ==
[2021-05-13 16:20] LABS: Bilirubin Negative (Negative); Blood Negative (Negative); Clarity Turbid (Clear); Glucose Negative (Negative); Ketones Negative (Negative); Leukocyte Esterase Negative (Negative); Specific Gravity >= 1.030 (1.005-1.025)
[2021-05-13 17:00] LABS: Crystals Many Amorphous HPF (Negative)
[2021-05-13 17:01] LABS: C & S Indicated? No
== END 2021-05-13 15:40 | disposition home or self-care (01) ==
LOC: LBN 15:39
PROVIDERS: PCP Internal Medicine; Visit Provider Radiology Radiation Oncology
DX: R30.0 Dysuria (principal)
CPT/HCPCS: 81003; 81015

== ENCOUNTER 2021-05-22 03:36 | Outpatient (CLI) | payer MEDICARE, BC, SELFPAY ==
[2021-05-22 15:15] LABS: Abs Immature Grans 0.06 10^3/uL (0.0-0.06); Absolute Basophil Count 0.05 10^3/uL (0.0-0.2); Absolute Eosinophil Count 0.54 10^3/uL (0.0-0.7); Absolute Monocyte Count 0.69 10^3/uL (0.1-0.8); Absolute Neutrophil Count 7.72 10^3/uL (1.2-6.7); Basophils % 0.5; Eosinophils % 5.8; HCT 37.3 % (36.0-46.0); HGB 12.4 g/dL (11.2-15.7); Immature Grans % 0.6; Lymphocytes % 3.2; MCH 34.4 pg (27.0-33.0); MCHC 33.2 % (32.0-36.0); MCV 103.6 fL (80-95); Monocytes % 7.4; Neutrophils % 82.5; Nucleated RBC 0 %; Platelet Count 299 10^3/uL (130-400); RDW 15.4 % (11.7-14.6); RDW-SD 59.5 fL; WBC 9.36 10^3/uL (4.4-10.8)
[2021-05-22 15:29] LABS: ALT 23 U/L (14-59); AST 25 U/L (15-37); Albumin 3.5 g/dL (3.4-5.0); Alkaline Phosphatase 157 U/L (46-116); BUN 14 mg/dL (7-18); Calcium 9.5 mg/dL (8.5-10.1); Chloride 103 mmol/L (98-107); Estimated GFR 53.35 (mL/min/1.73m2); Glucose 155 mg/dL (74-106); Potassium 4.1 mmol/L (3.5-5.1); Sodium 140 mmol/L (136-145); Total Protein 7.4 g/dL (6.4-8.2)
== END 2021-05-22 03:37 | disposition home or self-care (01) ==
LOC: LBO 03:36
PROVIDERS: PCP Internal Medicine; Visit Provider Internal Medicine
DX: C54.1 Malignant neoplasm of endometrium (principal)
CPT/HCPCS: 36415; 80053; 85025

== ENCOUNTER 2021-06-08 13:28 | Outpatient (CLI) | payer MEDICARE, BC, SELFPAY ==
[2021-06-08 11:56] LABS: HCT 33.6 % (36.0-46.0); HGB 11.3 g/dL (11.2-15.7); MCH 33.9 pg (27.0-33.0); MCHC 33.6 % (32.0-36.0); MCV 100.9 fL (80-95); MPV 9.7 fL (8.0-11.0); Nucleated RBC 0 %; Platelet Count 132 10^3/uL (130-400); RBC 3.33 10^6/uL (3.93-5.22); RDW 14.6 % (11.7-14.6); RDW-SD 53.3 fL; WBC 16.63 10^3/uL (4.4-10.8)
[2021-06-08 12:11] LABS: Absolute Lymphocyte Count 0.83 10^3/uL (1.2-3.4); Absolute Monocyte Count 0.67 10^3/uL (0.1-0.8); Absolute Neutrophil Count 15.13 10^3/uL (1.2-6.7); Bands % 4; Diff Comment Manual Differential; RBC Morphology Normal
[2021-06-08 13:44] LABS: ALT 15 U/L (14-59); AST 15 U/L (15-37); Albumin 3.2 g/dL (3.4-5.0); Alkaline Phosphatase 144 U/L (46-116); Anion Gap 12.4 mmol/L (3-11); BUN 12 mg/dL (7-18); Bilirubin, Total 0.7 mg/dL (0.2-1.0); CO2 26.6 mmol/L (21.0-32.0); CREATININE 1.1 mg/dL (0.55-1.02); Calcium 8.6 mg/dL (8.5-10.1); Chloride 101 mmol/L (98-107); Estimated GFR 47.79 (mL/min/1.73m2); Glucose 223 mg/dL (74-106); Potassium 4.2 mmol/L (3.5-5.1); Sodium 140 mmol/L (136-145); Total Protein 6.4 g/dL (6.4-8.2)
== END 2021-06-08 13:29 | disposition home or self-care (01) ==
LOC: LBO 13:28
PROVIDERS: PCP Internal Medicine; Visit Provider Internal Medicine
DX: C54.1 Malignant neoplasm of endometrium (principal)
CPT/HCPCS: 36415; 80053; 85025

== ENCOUNTER 2021-06-15 13:52 | Outpatient (CLI) | payer MEDICARE, BC, SELFPAY ==
[2021-06-15 14:07] LABS: Abs Immature Grans 0.24 10^3/uL (0.0-0.06); Absolute Basophil Count 0.13 10^3/uL (0.0-0.2); Absolute Eosinophil Count 0.19 10^3/uL (0.0-0.7); Absolute Monocyte Count 1.19 10^3/uL (0.1-0.8); Absolute Neutrophil Count 10.36 10^3/uL (1.2-6.7); Eosinophils % 1.5; HCT 34.3 % (36.0-46.0); HGB 11.3 g/dL (11.2-15.7); Immature Grans % 1.9; Lymphocytes % 3.7; MCH 33.9 pg (27.0-33.0); MCHC 32.9 % (32.0-36.0); MPV 8.9 fL (8.0-11.0); Monocytes % 9.5; Neutrophils % 82.4; Nucleated RBC 0 %; Platelet Count 282 10^3/uL (130-400); RBC 3.33 10^6/uL (3.93-5.22); RDW 15.3 % (11.7-14.6); RDW-SD 56.1 fL; WBC 12.57 10^3/uL (4.4-10.8)
[2021-06-15 14:08] LABS: Absolute Lymphocyte Count 0.47 10^3/uL (1.2-3.4)
[2021-06-15 14:21] LABS: ALT 17 U/L (14-59); AST 15 U/L (15-37); Albumin 3.4 g/dL (3.4-5.0); Alkaline Phosphatase 128 U/L (46-116); Anion Gap 9.2 mmol/L (3-11); BUN 12 mg/dL (7-18); Bilirubin, Total 0.7 mg/dL (0.2-1.0); CO2 27.8 mmol/L (21.0-32.0); CREATININE 1.1 mg/dL (0.55-1.02); Calcium 9.4 mg/dL (8.5-10.1); Chloride 104 mmol/L (98-107); Estimated GFR 47.79 (mL/min/1.73m2); Glucose 187 mg/dL (74-106); Potassium 4.6 mmol/L (3.5-5.1); Sodium 141 mmol/L (136-145); Total Protein 6.7 g/dL (6.4-8.2)
== END 2021-06-15 13:53 | disposition home or self-care (01) ==
PROVIDERS: PCP Internal Medicine; Visit Provider Internal Medicine
DX: C54.1 Malignant neoplasm of endometrium (principal)
CPT/HCPCS: 36415; 80053; 85025

== ENCOUNTER 2021-06-28 09:23 | Inpatient (IN) | payer MEDICARE, BC, SELFPAY ==
[2021-06-28] VITALS (36 sets, daily range): BP systolic 56–127; BP diastolic 28–74; PULSE 93–114; RESP 11–24; TEMP 36.2–37.4; O2SAT 89–97
--- NOTE | 2021-06-28 09:15 | RT.EKG_ITS ---
APPROVED REPORT Exam: Resting ECG Reason for Exam: fall Patient Location: E HR:110 bpm ECG Measurements Heart Rate 110 AXIS OR 159 P 28 QRSd 91 QRS -45 QT 330 T 9 QTc 447 Conclusion Sinus tachycardia...rate> 99 Inferior infarct, old...Q >35mS, II III aVF Sinus. Q waves. No STEMI. I have reviewed and interpreted ECG and agree with software generated interpretation.
--- NOTE | 2021-06-28 09:15 | DI.CT_ITS ---
Exam(s) CT HEAD - STROKE PROTOCOL EXAM: CT HEAD - STROKE PROTOCOL CLINICAL HISTORY: fall, memory loss, RLE weakness. TECHNIQUE: Imaging Protocol: Axial computed tomography images with coronal and sagittal reformatted images were created and reviewed COMPARISON: CT CT HEAD WO from 03/15/2019 FINDINGS: There are no skull fractures . Hyperostosis frontalis interna again noted. Mild mucosal thickening noted in left maxillary sinus. Small fluid level noted in the sphenoid sinuses. Mucosal thickening noted in the left frontal sinus. Mastoid air cells are clear and there is no fluid in the middle ea r cavities. There is no evidence of intracranial hemorrhage, mass effect, or shift of midline structures. There are no extra-axial fluid collections. The ventricles are not enlarged or shifted and there is no blo od within the ventricular system nor within the basal cisterns. Mild bilateral periventricular hypodensity consistent with chronic small vessel disease again noted. In addition, small right-sided periventricular lacunar infarct is again noted. IMPRESSION: As above but no acute intracranial findings. If clinically indicated follow-up MRI with diffusion im aging can be performed. RADIATION DOSE DELIVERED: 806.67mGy.cm Total DLP DATA REPOSITORY: All CT scans at this facility are submitted to the National Radiology Data Registry (NRDR) Dose Index Registry (DIR) with the [employer] ([employer]). RADIATION OPTIMIZATION: All CT scans at this facility use at least one of these dose optimization te chniques: automated exposure control; mA and/or kV adjustment per patient size (includes targeted exa ms where dose is matched to clinical indication); or iterative reconstruction.
--- NOTE | 2021-06-28 09:19 | ED.GENADUL_ITS ---
Discharge Plan Disposition Patient Disposition: [facility] INPATIENT Condition: Poor Discharge Details Chief Complaint: CVA/TIA Clinical Impression: Sepsis, UTI (urinary tract infection), Ambulatory dysfunction, Elevated troponin Admit Date/Time: 06/28/21 13:29 Admit Provider: Debo Taylor Attending Provider: Debo Taylor Primary Care Provider: King Ramos ED Provider: Norma Anders Discharge Data Discharge Date/Time-TO BE ENTERED AT DEPARTURE: 06/28/21 14:13 Medical Decision Making Patient is a pleasant 80-year-old female, brought in via EMS, after witnessed fall at home. Patient does not have any recollection of the events. Her describes her having poor balance over the past 2 days. He states that she was at the top of the stairs this morning when she tipped to the side and slid down the wall. Did not have a traumatic fall. No head injury. No LOC. He did not note any trauma, patient denies any pain. Patient is currently receiving chemotherapy for uterine cancer. Last infusion was 2 weeks ago. Patient had a hysterctomy a few months ago. reports that she did well with her first infusion of chemotherapy but that the second, which was 2 weeks ago, has left her more fatigued. She had neupogen infusion the day after. Patient and denies fevers/chills. No recent illness. She denies CP, SOB, abdominal pain, change in urinary or bowel habits. Past medical history includes FAUSTO, hypertension, hyperlipoidemia, hypothyroidism, anxiety depression, mild cognitive impairment, urine cancer, endometrial cancer. Patient had a Neulasta injection on 07/28/2020. Chemotherapy infusion on 06/16/21, carboplatin and paclitaxel. When patient was seen on the same day, patient was presenting with significant short-term memory loss. EKG was obtained and reviewed by Dr. Loya. No acute ischemic changes noted. No significant change from previous. On exam, patient appears much more fatigued than when I have seen her in the past. She appears acutely ill. She answers questions but is short with her answers which is atypical compared to previous visits. Lungs are clear, normal cardiac exam. Initial exam is concerning for RLE weakness. Concerned for potential CVA and will send for CT. FINDINGS: Brain: Normal. No hemorrhage. Unremarkable white matter. No mass effect. Cerebral ventricles: No ventriculomegaly. Paranasal sinuses: No epidural fluid. Mastoid air cells: Visualized mastoid air cells are well aerated. Bones/joints: Hyperostosis of the calvarium without acute fracture. Age appropraite degenerative changes are present without acute fracture, worrisome malalignment, or signi fican compression deformity. Soft tissues: No prevertebral soft tissue swelling. IMPRESSION: No acute intracranial abnormality. If concern persists, consider MRI or CTA. No significant interval change FINDINGS: Lungs: Limited interstitial prominence with mild retrocardiac density on the lateral view probably atelectatic. No definite dense consolidation. Pleural spaces: Unremarkable. No pleural effusion. No pneumothorax. Heart/Mediastinum: Unremarkable. No cardiomegaly. Bones/joints: Degenerative changes without acute fracture. Intraperitoneal space: Surgical clips in the upper abdomen. IMPRESSION: Alveolar and interstitial densities. Two-view chest follow-up recommended Labs reviewed. Patient is a leukocytosis with a white count 24. Could be associate with Neupogen. She is anemic with a hemoglobin of 9.1 which does appear to be new. Lancia 22. 0 lymphocytes. Sodium low at 129. Potassium is normal. BUN 21, creatinine 1.1, GFR 47. This appears to be patient's baseline creatinine. Glucose is elevated at 254. Magnesium is low at 1.4, will replenish this here. Her alk phos is elevated at 178, patient is chronically elevated. Her initial troponin is elevated at 0.1. She not having any chest pain or shortness of breath, likely demand. Urine is concerning for UTI with elevated specific gravity, ketones, elevated protein, moderate blood, positive nitrite, moderate leukocyte esterase and moderate bacteria. This completed by straight cath. Concern the patient is uroseptic. Have added on a lactate, blood cultures. As there was question as interstitial densities and a chest x-ray, will cover for both UTI as well as possible pneumonia with levofloxacin. Patient is receiving hydration. We will replace the magnesium as well. NIH exam was quite limited. Patient did have some difficulty with her vision. However, secondary to her having difficulty following instructions as well as just generalized weakness, it was hard to find focal abnormalities. I did have the patient sitting up on the side of the bed and she had to lay back secondary to fatigue and weakness. She did have some pain in the right knee at that time which reports is chronic. Extract movements are intact. She does not have any facial weakness. However, she did with visual field testing. Again, this facility did associated with her having difficulty following instructions. She was able to read line from the NH assessment score. However, on the pictures, she was having hard time identifying objects in the far right side of the page. I do remain concerned potential CVA and will move forward with the CTA neck and brain. The weakness in the RLE is not as pronounced. The patient states that her right knee is tender and has been for several weeks. She has upcoming appointment to have XR of the right knee obtained. believes that the right knee pain may be the source of initial weakness. She has no evidence of infection of the right knee- no erythema, warmth or swelling. No reported recent trauma. CTA reviewed by radiologist with no acute abrnoality noted. Repeat troponin remains stable. Plan to admit patient for urosepsis. Consulted with hospitalist who agrees to admission. Discussed plan and concerns at length with patient and who are in agreement with this plan. HPI General Mode of arrival: EMS . Date/Time Provider Initiated Documentation: 06/28/21 09:50 . Limitations to Documentation: altered mental status (difficulty with short term memory) . Information obtained by: patient, family, EMS, RN notes reviewed and old records reviewed . HPI Narrative: Patient brought in via EMS after a fall at home. Fall risk. No known injuries. Per EMS, patient was able to ambulate to the stretcher. They did not note any focal weakness to suggest CVA. Patient is currently being treated for uterine cancer, had hysterectomy is currently undergoing chemotherapy. Patient is a poor historian was not able to report any symptoms prior to the fall. Was not able to recall the fall. reports that she has been more weak and having difficulty with balance. Related Data Home Medications Medication Instructions Recorded Confirmed cholecalciferol (vitamin D3) 5,000 unit PO DAILY NS 01/22/13 06/28/21 [Vitamin D3] atorvastatin 10 mg PO DAILY tab-cap 07/05/16 06/28/21 levothyroxine 25 mcg PO DAILY tab-cap 07/05/16 06/28/21 metformin 1,000 mg PO DAILY 07/05/16 06/28/21 lisinopril 20 mg tablet 10 mg PO DAILY tab-cap NS 11/14/18 06/28/21 acetaminophen 325 mg tablet 325 mg PO QID PRN tab 01/16/20 06/28/21 citalopram 20 mg tablet 20 mg PO DAILY #30 tab 12/29/20 06/28/21 ibuprofen 600 mg tablet 600 mg PO TID PRN tab 12/31/20 06/28/21 mirabegron 50 mg tablet,extended 50 mg PO DAILY #90 tab-cap 01/27/21 06/28/21 release 24 hr Previous Rx's Medication Instructions Recorded citalopram 20 mg tablet 20 mg PO DAILY #30 tab 12/29/20 mirabegron 50 mg tablet,extended 50 mg PO DAILY #90 tab-cap 01/27/21 release 24 hr Allergies Allergy/AdvReac Type Severity Reaction Status Date / Time No Known Allergies Allergy Unverified 06/28/21 09:29 General SONAL: 3 Review of Systems Narrative: Limited secondary to patient's memory issues Constitutional Constitutional: Reports as per HPI, Denies fever(s) and Denies headache(s) Eyes Eyes: Denies change in vision ENT Ears, Nose, Mouth, and Throat: Denies dizziness and Denies headache(s) Cardiovascular Cardiovascular: Reports as per HPI, Denies chest pain, Denies chest pain at rest, Denies lightheadedness and Denies dyspnea Respiratory Respiratory: Reports as per HPI, Denies chest congestion, Denies cough and Denies dyspnea Gastrointestinal Gastrointestinal: Reports as per HPI, Denies abdominal pain, Denies diarrhea, Denies nausea and Denies vomiting Musculoskeletal Musculoskeletal: Reports as per HPI Integumentary/Breasts Skin/Breast: Reports as per HPI and Denies rash Neurologic Neurologic: Reports as per HPI, Denies dizziness and Denies headache(s) [facility] Active Problem List Elevated troponin (Acute) Discharge planning issues (Acute) DVT prophylaxis (Acute) Hyponatremia (Acute) Hypomagnesemia (Acute) Dehydration (Acute) Ambulatory dysfunction (Acute) Pneumonia (Acute) UTI (urinary tract infection) (Acute) Sepsis (Acute) Obstructive sleep apnea (Chronic) Hypertension (Chronic) Abnormal vaginal bleeding (Acute) Thickened endometrium (Acute) Mild cognitive impairment (Acute) Urgency incontinence (Acute 11/05/16) Tinnitus (Acute 12/31/13) Sensorineural hearing loss, bilateral (Acute 12/31/13) Frequency of micturition (Acute 11/05/16) Medical History Anxiety Depression Diabetes mellitus type 2 in obese Dry mouth Dysphagia Frequent falls Hypercholesteremia Hypothyroidism Irregular bowel habits Lordosis Low back pain Metabolic syndrome Neuropathy Onychomycosis Sensorineural hearing loss Urinary incontinence Vertigo Surgical History Hx of cholecystectomy Status post bilateral knee replacements Family History Brother Heart disease Dementia Depression Father Heart disease Dementia Depression Mother Dementia Depression Social History Smoking/Tobacco Use Status: Never Smoking risk assessment performed?: Yes Alcohol Intake: current Alcohol Intake frequency: holidays/special occasions only Drug use: Never Substance use type: does not use Household members: spouse Housing: house What is your relationship status?: Panel score (0-1 are the most socially isolated patients): 1 Seatbelt use: always Do you feel safe at home: Yes Do you feel safe in your relationship?: Yes Exam Const General: cooperative, comfortable, no acute distress, well developed and ill appearing acutely Nutritional Appearance: well nourished and overweight Orientation: alert, awake and oriented to person [facility] Head: normal to inspection Ears: hearing grossly normal bilaterally Mouth: moist mucous membranes Eyes General: appearance normal, both eyes and all related structures Visual Nguyen: visual nguyen abnormal by confrontation (difficult to assess secondary to limited participation) Alignment and Position: alignment normal Eyelids: eyelids normal Cornea: corneas normal Pupils: PERRL EOM: EOM intact bilaterally Chest Chest: normal inspection of the chest, normal palpation of entire chest wall and no crepitus Resp Effort & Inspection: normal respiratory effort, able to speak in complete sentences and no respiratory distress Auscultation: clear to auscultation bilaterally, no rales, no rhonchi and no wheezes Cardio Rate: regular rate Rhythm: regular rhythm Heart Sounds: S1 normal and S2 normal GI Inspection: normal to inspection, no edema and non-distended Palpation: soft, no hepatosplenomegaly, not firm, no guarding, not rigid and nontender Auscultation: normal bowel sounds Back/Spine/Pelvis Thoracic/Lumbar Spine: thoracic and lumbar spine normal to inspection Skin General skin exam: no rashes or lesions noted Trauma: no lacerations or abrasions Neuro General: patient alert, patient awake and oriented Patient Orientation: Person Cranial Nerves: PERRL, accommodation normal, EOM intact bilaterally, no nystagmus, facial strength normal, tongue midline, hearing normal, able to rotate head bilaterally and able to elevate shoulders bilaterally Cognition: normal cognition Speech: speech normal Gait: gait abnormal (patient did not tolerate sitting for entire neuro exam, did not try to ambu) Motor: tone not normal throughout (generally weak, more on the RLE than other extremities) Coordination: [id number] test normal Extrem General: normal to inspection, capillary refill normal, no pedal edema and no calf tenderness Psych Appearance: grossly normal and well kempt Mental Status: mental status grossly normal Speech and Movement: speech and movement normal
--- NOTE | 2021-06-28 09:30 | DI.RAD_ITS ---
Exam(s) XR CHEST 2V PA LATERAL EXAM: XR CHEST 2V PA LATERAL CLINICAL HISTORY: fall. TECHNIQUE: 2D digital imaging was performed. COMPARISON: Prior chest x-ray 11/28/2013 FINDINGS: Heart size is upper normal. The mediastinum is not widened. No confluent infiltrates nor pleural effusions evident on the frontal view. No pulmonary edema. Advanced degenerative changes right shoulder noted. IMPRESSION: No acute pulmonary findings.Appropriate follow-up recommended DATA REPOSITORY: RADIATION DOSE DELIVERED:
--- NOTE | 2021-06-28 09:47 | NUR.NOTE ---
delay in EKG due to patient going to DI for a CT
[2021-06-28 09:53] LABS: HCT 27.2 % (36.0-46.0); HGB 9.1 g/dL (11.2-15.7); MCHC 33.5 % (32.0-36.0); MCV 101.5 fL (80-95); MPV 9.8 fL (8.0-11.0); Nucleated RBC 0 %; Platelet Count 146 10^3/uL (130-400); RBC 2.68 10^6/uL (3.93-5.22); RDW 16.4 % (11.7-14.6); RDW-SD 59.3 fL
--- NOTE | 2021-06-28 09:59 | DI.VRAD_ITS ---
PROCEDURE INFORMATION: Exam: CT Head Without Contrast Exam date and time: 06/28/2021 9:28 AM Age: 80 years old Clinical indication: Other: Fall, memory loss, rle weakness TECHNIQUE: Imaging protocol: Computed tomography of the head without contrast. Other technique: STROKE PROTOCOL was implemented. COMPARISON: CT HEAD WO 03/15/2019 1:50 PM FINDINGS: Brain: Normal. No hemorrhage. Unremarkable white matter. No mass effect. Cerebral ventricles: No ventriculomegaly. Paranasal sinuses: No epidural fluid. Mastoid air cells: Visualized mastoid air cells are well aerated. Bones/joints: Hyperostosis of the calvarium without acute fracture. Age appropraite degenerative changes are present without acute fracture, worrisome malalignment, or significan compression deformity. Soft tissues: No prevertebral soft tissue swelling. IMPRESSION: No acute intracranial abnormality. If concern persists, consider MRI or CTA. No significant interval change. ASSESSMENT: ASPECTS ([place] Stroke Program Early CT Score) is 10. Dictated and Authenticated by: Michael Aviles MD. Ordering:FANNY Green MD
--- NOTE | 2021-06-28 10:06 | DI.VRAD_ITS ---
PROCEDURE INFORMATION: Exam: XR Chest Exam date and time: 06/28/2021 9:40 AM Age: 80 years old Clinical indication: Injury or trauma; Other: Fall; Blunt trauma (contusions or hematomas) TECHNIQUE: Imaging protocol: XR of the chest. Views: 2 views. COMPARISON: No relevant prior studies available. FINDINGS: Lungs: Limited interstitial prominence with mild retrocardiac density on the lateral view probably atelectatic. No definite dense consolidation. Pleural spaces: Unremarkable. No pleural effusion. No pneumothorax. Heart/Mediastinum: Unremarkable. No cardiomegaly. Bones/joints: Degenerative changes without acute fracture. Intraperitoneal space: Surgical clips in the upper abdomen. IMPRESSION: Alveolar and interstitial densities. Two-view chest follow-up recommended. Dictated and Authenticated by: Michael Aviles MD. Ordering:FANNY Green MD
[2021-06-28 10:10] LABS: Absolute Monocyte Count 0.24 10^3/uL (0.1-0.8); Anisocytosis 1+; Bands % 10; Diff Comment Manual Differential; Metamyelocytes % 2; Myelocytes % 2
[2021-06-28 10:11] LABS: ALT 21 U/L (14-59); AST 23 U/L (15-37); Alkaline Phosphatase 178 U/L (46-116); Anion Gap 10.8 mmol/L (3-11); BUN 21 mg/dL (7-18); Bilirubin, Total 1.2 mg/dL (0.2-1.0); CO2 25.2 mmol/L (21.0-32.0); CREATININE 1.1 mg/dL (0.55-1.02); Calcium 8.6 mg/dL (8.5-10.1); Chloride 93 mmol/L (98-107); Estimated GFR 47.79 (mL/min/1.73m2); Glucose 254 mg/dL (74-106); Macrocytosis 1+; Magnesium 1.4 mg/dL (1.8-2.4); Polychromasia Present; Potassium 4.1 mmol/L (3.5-5.1); Sodium 129 mmol/L (136-145); Total Protein 6.8 g/dL (6.4-8.2)
[2021-06-28 10:17] LABS: Bilirubin Small (Negative); Blood Moderate (Negative); Clarity Cloudy (Clear); Glucose Negative (Negative); Ketones 40 mg/dL (Negative); Leukocyte Esterase Moderate (Negative); Nitrite Positive (Negative); Specific Gravity >= 1.030 (1.005-1.025)
[2021-06-28 10:19] LABS: INR 1.2 (0.9-1.1); Prothrombin Time 11.6 sec (9.3-11.0)
[2021-06-28 10:26] LABS: WBC >50 HPF (0-5)
[2021-06-28 10:27] LABS: Bacteria Moderate HPF (Negative); C & S Indicated? Yes; Casts 5-10 Hyaline LPF (Negative); Crystals Negative HPF (Negative); Epithelial Cells Few HPF (Negative); Mucus Trace (Negative)
--- NOTE | 2021-06-28 10:30 | DI.CT_ITS ---
Exam(s) CT BRAIN NECK CTA EXAM: CT BRAIN NECK CTA CLINICAL HISTORY: visual field change, RLE weakness. TECHNIQUE: Imaging Protocol: Axial CT angiography was performed with multi-slice acquisition and mu lti-planar and/or 3D reconstructions. CONTRAST MATERIAL: Intravenous: Omnipaque 350 Contrast volume:structured data in ml COMPARISON: No exams were available for comparison FINDINGS: CTA Neck W: Aortic arch anatomy: Anatomic variant here in that the left vertebral artery originates as an indepen dent vessel off of the aortic arch instead of in conventional fashion off the left subclavian artery. Anterior circulation: Both common carotid arteries exhibit normal diameters. The course of the common carotid arteries is somewhat medially located, anterior to the vertebral bodies. There is some mild plaque noted at both carotid bifurcations, slightly more so on the right side but there is no tight stenosis evident at t his level nor in the proximal internal carotid arteries in the neck. Both ICAs are tortuous in the n clarice but patent and both internal carotid arteries are demonstrated to be patent in the skull base-car otid canals. Posterior circulation: As described above the left vertebral artery originates as an independent vessel off the aortic arch. The right vertebral artery is dominant. No obvious stenosis within these vessels. Both vertebral arteries contribute to the formation of the basilar artery at the skull base. No evidence of vertebr al artery dissection. CTA Brain W: Anterior circulation: Both internal carotid arteries are patent in the skull base-carotid canals as well as within the cave rnous sinuses. Supraclinoid aspects are patent. The right A1 segment is patent. Left A1 segment is not opacified. Both vertebral arteries are opacified. Left is presumably opacified via the anterio r communicating artery. There is no evidence of aneurysm at the anterior communicating artery. Middle cerebral arteries are patent bilaterally. Posterior circulation: Basilar artery is formed at the skull base by both vertebral arteries and ascends in the midline. Di stally basilar artery gives off superior cerebellar arteries where it appears to terminate. Both pos terior cerebral arteries are supplied by posterior communicating arteries on both sides of the jena -of-Quiros. There is no evidence of aneurysm of the tip of the basilar artery nor elsewhere in the c [id number]. CT BRAIN: There is no evidence of intracranial hemorrhage, mass effect, or shift of midline structures. There are no extra-axial fluid collections. Ventricles are not enlarged or shifted. There are no ring enh ancing lesions in the brain and no abnormal meningeal enhancement. IMPRESSION: 1. Some plaque seen bilaterally at the carotid bifurcations but no tight stenosis. Amount of stenosi s estimated at less than 50 percent bilaterally. 2. Both vertebral arteries are patent. Left vertebral artery originates as an independent vessel of f the aortic arch. 3. Left A1 segment is not opacified. This may be developmental. Both anterior cerebral arteries a re opacified; the left presumably via the anterior communicating artery. No acute intracranial findi ngs. RADIATION DOSE DELIVERED: 1,352.06mGy.cm Total DLP DATA REPOSITORY: All CT scans at this facility are submitted to the National Radiology Data Registry (NRDR) Dose Index Registry (DIR) with the [employer] (A[employer]). RADIATION OPTIMIZATION: All CT scans at this facility use at least one of these dose optimization te chniques: automated exposure control; mA and/or kV adjustment per patient size (includes targeted exa ms where dose is matched to clinical indication); or iterative reconstruction.
--- NOTE | 2021-06-28 10:38 | NUR.NOTE ---
Nursing Note:Pt on cafeteria monitor, denies present complaints, tking sips of PO liquids, eye acuity test done in bed, able to read card without difficulty, slight decrease when using only right eye, remains by her side, cont. to monitor.
[2021-06-28] MEDS: Normal Saline 1,000 ML 500 ML IV (10:51)
[2021-06-28] MEDS: MAGNESIUM SULFATE 1 GM/100 ML BAG IVPB (10:51)
[2021-06-28] MEDS: ACETAMINOPHEN 1,000 MG/100 ML BTL 400 MG IVPB (11:00)
[2021-06-28 11:10] LABS: Source Nasal/Nares
--- NOTE | 2021-06-28 11:10 | NUR.NOTE ---
Nursing Note: In house COVID swab done as ordered & sent to lab, cont. to monitor.
--- NOTE | 2021-06-28 11:15 | DI.RAD_ITS ---
Exam(s) XR KNEE RT 3V AP,LAT,EVANS EXAM: XR KNEE RT 3V AP,LAT,EVANS CLINICAL HISTORY: acute on chronic pain. TECHNIQUE: 2D digital imaging was performed. COMPARISON: No exams were available for comparison FINDINGS: Satisfactory position alignment of the components of the right knee prosthesis. No fracture or loose karen evident. No radiographic evidence of osteomyelitis. IMPRESSION: Intact arthroplasty. No fracture. DATA REPOSITORY: RADIATION DOSE DELIVERED:
[2021-06-28 11:48] LABS: COVID-19 PCR Negative (Negative)
[2021-06-28] MEDS: Normal Saline Flush 10 ML SYR IVP (12:01)
[2021-06-28] MEDS: Omnipaque 350 MG/ML 100 ML BTL IJ (12:01)
--- NOTE | 2021-06-28 12:18 | NUR.NOTE ---
Nursing Note: Pt return from CT scan, repositioned on left side, monitors reattached, lab in to draw blood, remains at side, cont. to monitor.
--- NOTE | 2021-06-28 12:22 | DI.VRAD_ITS ---
PROCEDURE INFORMATION: Exam: CT Angiography Head With Contrast, Arteriography Exam date and time: 06/28/2021 10:36 AM Age: 80 years old Clinical indication: Other: Visual field change, rle weakness; Prior surgery; Surgery date: 6+ months TECHNIQUE: Imaging protocol: Computed tomography angiography of the head with contrast. Exam focused on the arteries. 3D rendering (Not supervised by radiologist): MIP and/or 3D reconstructed images were created by the technologist. Contrast material: OMNIPAQUE 350; Contrast volume: 85 ml; Contrast route: INTRAVENOUS (IV); COMPARISON: CT HEAD - STROKE PROTOCOL 06/28/2021 9:39 AM FINDINGS: ANTERIOR CIRCULATION: Right internal carotid artery: Mild disease of the cavernous carotid on the right. Right middle cerebral artery: Unremarkable. No occlusion or significant stenosis. No aneurysm. Right anterior cerebral artery: Unremarkable. No occlusion or significant stenosis. No aneurysm. Left internal carotid artery: [id number] disease of the cavernous carotid on the left. Left middle cerebral artery: Slightly diminished branching and opacification of the left middle cerebral artery vessels in comparison to the right without thrombus or high-grade stenosis. Left anterior cerebral artery: Unremarkable. No occlusion or significant stenosis. No aneurysm. POSTERIOR CIRCULATION: Right vertebral artery: Unremarkable. No occlusion or significant stenosis. No aneurysm. Left vertebral artery: Mild narrowing of the distal left vertebral artery. Basilar artery: Unremarkable. No occlusion or significant stenosis. No aneurysm. Right posterior cerebral artery: origin of the right posterior cerebral artery. Left posterior cerebral artery: origin of the left posterior cerebral artery. Veins: Venous contamination without venous thrombus. Brain: Diffuse involutional changes of brain without acute hemorrhage or acute territorial infarct. Cerebral ventricles: No ventriculomegaly. Bones/joints: No acute calvarial fracture. Soft tissues: Unremarkable. Paranasal sinuses: Paranasal sinus disease with an air-fluid level partially visualized in the sphenoid sinus on the left. IMPRESSION: 1. No acute intracranial abnormality. 2. No large vessel occlusion. 3. Mildly asymmetric diminished filling of the left middle cerebral artery branches in comparison to the right without focal stenosis or thrombus. PROCEDURE INFORMATION: Exam: CT Angiography Neck With Contrast Exam date and time: 06/28/2021 10:36 AM Age: 80 years old Clinical indication: Other: Visual field change, rle weakness; Prior surgery; Surgery date: 6+ months TECHNIQUE: Imaging protocol: Computed tomography angiography of the neck with contrast. 3D rendering (Not supervised by radiologist): MIP and/or 3D reconstructed images were created by the technologist. Contrast material: OMNIPAQUE 350; Contrast volume: 85 ml; Contrast route: INTRAVENOUS (IV); COMPARISON: CT HEAD - STROKE PROTOCOL 06/28/2021 9:39 AM FINDINGS: Right common carotid artery: Medialized right common carotid artery without significant stenosis. Right internal carotid artery: Complex atherosclerotic changes at the internal carotid artery origin on the right with approximately a 50% stenosis the origin. Ectatic vessel more distally. Right external carotid artery: Moderate narrowing of the origin of the external carotid artery on the right. Left common carotid artery: Medialized left common carotid artery without significant stenosis. Minimal narrowing at the origin. Left internal carotid artery: Less than 20% narrowing the origin of the left internal carotid artery with an ectatic vessel more distally. Left external carotid artery: No occlusion or stenosis of the origin. Right vertebral artery: Mild narrowing the origin of the right vertebral artery. Ectatic vertebral artery proximally without significant stenosis. Left vertebral artery: No stenosis. No dissection or occlusion. Right subclavian artery: Mild to moderate narrowing the origin of the right subclavian artery. Left subclavian artery: Mild narrowing the origin of the left subclavian artery. Aorta: Atherosclerotic changes of the aortic arch. Dental: Artifact from patient's dental hardware. Lymph nodes: Small nodes at multiple stations in the neck bilaterally without confluent lymphadenopathy. Soft tissues: Normal. No significant soft tissue swelling. Bones/joints: Reversal of lordosis suggests spasm. Esophagus: Mildly patulous esophagus. Other findings: Motion artifact. Limited exam due to body habitus. IMPRESSION: 1. Moderate right and mild left internal carotid artery stenosis by NASCET criteria. 2. Motion limited exam. REFERENCES: NASCET CRITERIA. The degree of internal carotid artery stenosis is based on NASCET criteria. Normal is no stenosis. Mild is less than 50% stenosis. Moderate is 50-69% stenosis. Severe is 70% to 99% stenosis. Total occlusion is no detectable patent lumen. Dictated and Authenticated by: Michael Aviles MD. Ordering:FANNY Green MD
--- NOTE | 2021-06-28 12:23 | DI.VRAD_ITS ---
PROCEDURE INFORMATION: Exam: XR Right Knee Exam date and time: 06/28/2021 11:23 AM Age: 80 years old Clinical indication: Other: Acute on chronic pain, right knee TECHNIQUE: Imaging protocol: XR Right knee. Views: 3 views. COMPARISON: No relevant prior studies available. FINDINGS: Bones/joints: Intact arthroplasty with osteopenia but no acute fracture. Soft tissues: Normal. Vasculature: Vascular calcifications. IMPRESSION: No acute bony abnormality. Dictated and Authenticated by: Michael Aviles MD. Ordering:FANNY Green MD
[2021-06-28] MEDS: levoFLOXacin 750 MG/150 ML BAG 100 MG IVPB (12:52)
[2021-06-28 12:53] LABS: Lactate 1.2 mmol/L (0.6-1.4)
[2021-06-28 13:25] LABS: Troponin I 0.11 ng/mL (<0.06)
--- NOTE | 2021-06-28 13:30 | NUR.NOTE ---
Nursing Note: BP soft, pt is sleeping, provider notified, will continue to monitor VS and new order for fluids recieved.
--- NOTE | 2021-06-28 13:46 | HPE_ITS ---
Date of service: 06/28/21 Time of Service: 16:47 Assessment and Plan Assessment and plan (1) Sepsis: Status: Acute Assessment and plan: Due to UTI, POA. Await blood culture results. Continue levofloxacin initiated in the ED. Continue IVF. (2) UTI (urinary tract infection): Status: Acute Assessment and plan: As above (3) Pneumonia: Status: Ruled-out Assessment and plan: CT chest w/o contrast shows no focal infiltrate and is not c/w PNA. (4) Elevated troponin: Status: Acute Assessment and plan: While it is borderline elevated, it is also flat. Possibly, the patient had some demand ischemia associated with her sepsis. She does not appear to be having an ACS at this time. Will continue to trend troponins, repeat EKG in am, obtain echo. (5) Ambulatory dysfunction: Status: Acute Assessment and plan: In setting of acute UTI and chronic R knee pain. Additionally, the patient endorses B foot pain and B thigh pain. She is on a statin, s/p chemo and has DM. Check B12 level. Consider B6 repletion. Hold statin. CPK ok. C/s PT. IV hydration. Treat infection. (6) Dehydration: Status: Acute Assessment and plan: As above (7) Hypomagnesemia: Status: Acute Assessment and plan: Replete and recheck in am (8) Hyponatremia: Status: Acute Assessment and plan: Hydration with NS (9) Obstructive sleep apnea: Status: Chronic Assessment and plan: Continue Home CPAP (10) DVT prophylaxis: Status: Acute Assessment and plan: Sc lovenox (11) Discharge planning issues: Status: Acute Assessment and plan: Full code C/s palliative care and PT History of Present Illness History of Present Illness Chief Complaint: Generalized weakness, a fall at home, worsening balance Narrative: Ms Angulo is an 80 year old female with PMHx of uterine cancer s/p hysterectomy, on chemo, as well as HTN, NIDDM2, FAUSTO on CPAP, memory loss felt to possibly be due to depression rather than dementia, who was brought to [facility] ED today after a witness fall (slipping to the ground) with RLE weakness. Per the ED provider, the patient's stated that for the last 3 days, the patient has been more fatigued, weak, and her balance has been off. The patient cannot tell me why she is here in the hospital today, endorses the sensation of feeling like she is falling, a headache, B hip pain, and B foot pain. She feels thirsty. She states she does not know why she is in the hospital and does not remember events of today. Her memory deficits/cognition seem to be at her baseline, per ED provider's conversation with the . The patient does have chronic R knee pain which may have contributed to the fall. ER workup revealed a UTI, probable pneumonia, hyponatremia, hypomagnesemia. She tested negative for COVID-19. She does have a leucocytosis of 24. Her last dose of neupogen was 06/17/21. The patient was initiated on empiric levofloxacin. Hospitalist admission was requested. Review of Systems All systems reviewed & are unremarkable except as noted in HPI and below PFSH Active Problem List Elevated troponin (Acute) Discharge planning issues (Acute) DVT prophylaxis (Acute) Hyponatremia (Acute) Hypomagnesemia (Acute) Dehydration (Acute) Ambulatory dysfunction (Acute) Pneumonia (Acute) UTI (urinary tract infection) (Acute) Sepsis (Acute) Obstructive sleep apnea (Chronic) Hypertension (Chronic) Abnormal vaginal bleeding (Acute) Thickened endometrium (Acute) Mild cognitive impairment (Acute) Urgency incontinence (Acute 11/05/16) Tinnitus (Acute 12/31/13) Sensorineural hearing loss, bilateral (Acute 12/31/13) Frequency of micturition (Acute 11/05/16) Medical History Anxiety Depression Diabetes mellitus type 2 in obese Dry mouth Dysphagia Frequent falls Hypercholesteremia Hypothyroidism Irregular bowel habits Lordosis Low back pain Metabolic syndrome Neuropathy Onychomycosis Sensorineural hearing loss Urinary incontinence Vertigo Surgical History Hx of cholecystectomy Status post bilateral knee replacements Family History Brother Heart disease Dementia Depression Father Heart disease Dementia Depression Mother Dementia Depression Social History Smoking/Tobacco Use Status: Never Smoking risk assessment performed?: Yes Alcohol Intake: current Alcohol Intake frequency: holidays/special occasions only Drug use: Never Substance use type: does not use Household members: spouse Housing: house What is your relationship status?: Panel score (0-1 are the most socially isolated patients): 1 Seatbelt use: always Do you feel safe at home: Yes Do you feel safe in your relationship?: Yes Meds Allergies and Home Medications Allergies Allergy/AdvReac Type Severity Reaction Status Date / Time No Known Allergies Allergy Unverified 06/28/21 09:29 Home Medications Medication Instructions Recorded Confirmed Type cholecalciferol (vitamin D3) 5,000 unit PO DAILY NS 01/22/13 06/28/21 History [Vitamin D3] atorvastatin 10 mg PO DAILY tab-cap 07/05/16 06/28/21 History levothyroxine 25 mcg PO DAILY tab-cap 07/05/16 06/28/21 History metformin 1,000 mg PO DAILY 07/05/16 06/28/21 History lisinopril 20 mg tablet 10 mg PO DAILY tab-cap NS 11/14/18 06/28/21 History acetaminophen 325 mg tablet 325 mg PO QID PRN tab 01/16/20 06/28/21 History citalopram 20 mg tablet 20 mg PO DAILY #30 tab 12/29/20 06/28/21 Rx ibuprofen 600 mg tablet 600 mg PO TID PRN tab 12/31/20 06/28/21 History nitrofurantoin macrocrystal 100 mg 100 mg PO BID 01/22/21 06/28/21 History capsule mirabegron 50 mg tablet,extended 50 mg PO DAILY #90 tab-cap 01/27/21 06/28/21 Rx release 24 hr Exam Narrative Exam Narrative: General: Pleasant anxious elderly obese female with chemo-induced hair loss, A&Ox2, forgetful. No dyspnea/tachypnea on RA. Neurological: A&Ox2, pain B feet c/w neuropathy Psychiatric: Anxious/tearful Skin: Visible skin dry, intact HEENT: Atraumatic, normocephalic, EOMI, dry MM, clear oropharynx, no submandibular or cervical lymphadenopathy, no goiter or JVD Cardiovascular: RRR, no m/r/g Lungs: CTAB Gastrointestinal: soft, obese, nontender, hypoactive bowel sounds Genitourinary: deferred Extremities: no edema/clubbing/cyanosis BLE's, 1+ pedal pulses B, no lesions on B feet Results Imaging Additional studies: CT brain: No acute intracranial abnormality. If concern persists, consider MRI or CTA. No significant interval change. CTA head: 1. No acute intracranial abnormality. 2. No large vessel occlusion. 3. Mildly asymmetric diminished filling of the left middle cerebral artery branches in comparison to the right without focal stenosis or thrombus. CTA neck: 1. Moderate right and mild left internal carotid artery stenosis by NASCET criteria. 2. Motion limited exam. CXR portable: Alveolar and interstitial densities. Two-view chest follow-up recommended. CT chest: No focal infiltrate. No acute abnormality. XR R knee; No acute bony abnormality. EKG: ST, HR 110, Q waves, no acute ischemia Labs Result diagrams: 06/28/21 09:45 06/28/21 09:45 Labs: Laboratory Results - last 24 hr 06/28/21 06/28/21 06/28/21 09:45 09:45 10:00 WBC 24.00 H RBC 2.68 L Hgb 9.1 L Hct 27.2 L MCV 101.5 H MCH 34.0 H MCHC 33.5 RDW 16.4 H Plt Count 146 D MPV 9.8 Immature Gran % See Differential Neutrophils % 85.0 Band Neutrophils % 10 Lymphocytes % 0.0 Monocytes % 1.0 Eosinophils % 0.0 Basophils % 0.0 Metamyelocytes % 2 Myelocytes % 2 Nucleated RBC % 0 Absolute Neutrophils 22.80 H Absolute Lymphocytes 0.00 L Absolute Monocytes 0.24 Absolute Eosinophils 0.00 Absolute Basophils 0.00 RBC Morphology See Below Polychromasia Present Anisocytosis 1+ Macrocytosis 1+ PT 11.6 H INR 1.2 H VBG Lactate Sodium 129 L Potassium 4.1 Chloride 93 L Carbon Dioxide 25.2 Anion Gap 10.8 BUN 21 H Creatinine 1.1 H Estimated GFR/1.73 m2 47.79 Glucose 254 H Calcium 8.6 Magnesium 1.4 L Total Bilirubin 1.2 H AST 23 ALT 21 Alkaline Phosphatase 178 H Troponin I 0.10 H* Total Protein 6.8 Albumin 3.0 L Urine Color Urine Clarity Urine pH Ur Specific [place] Urine Protein Urine Ketones Urine Blood Urine Nitrite Urine Bilirubin Urine Urobilinogen Ur Leukocyte Esterase Urine RBC Urine WBC Ur Epithelial Cells Urine Crystals Urine Bacteria Urine Casts Urine Mucus Ur Culture Indicated? Urine Glucose COVID-19 Source SARS-CoV-2 (PCR) 06/28/21 06/28/21 06/28/21 10:09 11:05 12:40 WBC RBC Hgb Hct MCV MCH MCHC RDW Plt Count MPV Immature Gran % Neutrophils % Band Neutrophils % Lymphocytes % Monocytes % Eosinophils % Basophils % Metamyelocytes % Myelocytes % Nucleated RBC % Absolute Neutrophils Absolute Lymphocytes Absolute Monocytes Absolute Eosinophils Absolute Basophils RBC Morphology Polychromasia Anisocytosis Macrocytosis PT INR VBG Lactate Sodium Potassium Chloride Carbon Dioxide Anion Gap BUN Creatinine Estimated GFR/1.73 m2 Glucose Calcium Magnesium Total Bilirubin AST ALT Alkaline Phosphatase Troponin I 0.11 H* Total Protein Albumin Urine Color Yellow Urine Clarity Cloudy Urine pH 6.0 Ur Specific [place] >= 1.030 H Urine Protein >=300 H Urine Ketones 40 H Urine Blood Moderate H Urine Nitrite Positive H Urine Bilirubin Small H Urine Urobilinogen 2.0 H Ur Leukocyte Esterase Moderate H Urine RBC 10-20 H Urine WBC >50 H Ur Epithelial Cells Few Urine Crystals Negative Urine Bacteria Moderate Urine Casts 5-10 Hyaline Urine Mucus Trace Ur Culture Indicated? Yes Urine Glucose Negative COVID-19 Source Nasal/Nares SARS-CoV-2 (PCR) Negative 06/28/21 12:40 WBC RBC Hgb Hct MCV MCH MCHC RDW Plt Count MPV Immature Gran % Neutrophils % Band Neutrophils % Lymphocytes % Monocytes % Eosinophils % Basophils % Metamyelocytes % Myelocytes % Nucleated RBC % Absolute Neutrophils Absolute Lymphocytes Absolute Monocytes Absolute Eosinophils Absolute Basophils RBC Morphology Polychromasia Anisocytosis Macrocytosis PT INR VBG Lactate 1.2 Sodium Potassium Chloride Carbon Dioxide Anion Gap BUN Creatinine Estimated GFR/1.73 m2 Glucose Calcium Magnesium Total Bilirubin AST ALT Alkaline Phosphatase Troponin I Total Protein Albumin Urine Color Urine Clarity Urine pH Ur Specific [place] Urine Protein Urine Ketones Urine Blood Urine Nitrite Urine Bilirubin Urine Urobilinogen Ur Leukocyte Esterase Urine RBC Urine WBC Ur Epithelial Cells Urine Crystals Urine Bacteria Urine Casts Urine Mucus Ur Culture Indicated? Urine Glucose COVID-19 Source SARS-CoV-2 (PCR) Last Vital Signs Temp 36.6 C 06/28/21 13:24 Pulse 97 H 06/28/21 13:21 Resp 16 06/28/21 13:21 BP 70/53 L 06/28/21 13:21 Pulse Ox 93 06/28/21 13:21
[2021-06-28 14:09] LABS: Creatine Kinase 67 U/L (26-192); NT-proBNP 3783 pg/mL (<300)
[2021-06-28] MEDS: Normal Saline 1,000 ML 75 ML IV (14:44)
[2021-06-28] MEDS: Enoxaparin 40 MG/0.4 ML SYR SC (14:48)
[2021-06-28 14:49] LABS: TSH 1.19 uIU/mL (0.36-3.74)
[2021-06-28] MEDS: MAGNESIUM SULFATE 2 GM/50 ML BAG IVPB (14:54)
[2021-06-28] MEDS: Acetaminophen 325 MG TAB PO ×2 (15:02→20:51)
--- NOTE | 2021-06-28 16:00 | DI.CT_ITS ---
Exam(s) CT CHEST WO EXAM: CT CHEST WO CLINICAL HISTORY: ?PNA. TECHNIQUE: Multi planar reconstructions were performed. CONTRAST MATERIAL: None COMPARISON: No exams were available for comparison FINDINGS: CHEST: LUNGS: There are no confluent pulmonary infiltrates nor pleural effusions. No ominous pulmonary nodu les. MEDIASTINUM: There is no obvious hilar nor mediastinal adenopathy. Visualized thyroid unremarkable.No obvious axillary adenopathy CARDIAC: Heart size is normal. There is no pericardial effusion.Caliber of the thoracic aorta is wit hin normal limits. VISUALIZED UPPER ABDOMEN:Gallbladder surgically absent. No significant adrenal findings. OSSEOUS: No significant osseous lesions.Multilevel chronic degenerative disc disease.. IMPRESSION: 1. No acute focal pulmonary findings and no pleural effusions. 2. No intrathoracic adenopathy evident this noninfused study. RADIATION DOSE DELIVERED: 796.98mGy.cm Total DLP DATA REPOSITORY: All CT scans at this facility are submitted to the National Radiology Data Registry (NRDR) Dose Index Registry (DIR) with the [employer] (ACR). RADIATION OPTIMIZATION: All CT scans at this facility use at least one of these dose optimization te chniques: automated exposure control; mA and/or kV adjustment per patient size (includes targeted exa ms where dose is matched to clinical indication); or iterative reconstruction.
--- NOTE | 2021-06-28 16:33 | DI.VRAD_ITS ---
PROCEDURE INFORMATION: Exam: CT Chest Without Contrast; Diagnostic Exam date and time: 06/28/2021 2:04 PM Age: 80 years old Clinical indication: Other: ? Pna TECHNIQUE: Imaging protocol: Diagnostic computed tomography of the chest without contrast. 3D rendering (Not supervised by radiologist): MIP and/or 3D reconstructed images were created by the technologist. COMPARISON: CR XR CHEST 2V PA LATERAL 06/28/2021 9:51 AM FINDINGS: Lungs: Mild dependent likely atelectatic changes without dense consolidation. No worrisome mass or nodule. Pleural spaces: No pneumothorax or effusion. Heart: The heart is not enlarged and there is no significant pericardial or mediastinal fluid. Mediastinal space: Mildly patulous esophagus. Small hiatal hernia. Aorta: Atherosclerotic changes of the thoracic aorta extend into the neck vessels, coronary arteries, and abdominal aorta without aneurysm or dissection. Lymph nodes: Unremarkable. No enlarged lymph nodes. Gallbladder and bile ducts: Surgical clips in the gallbladder fossa without choledocholithiasis. Pancreas: There is pancreatic atrophy. Kidneys and ureters: Mild bilateral renal volume loss. Stomach: The distal stomach is poorly distended, limiting its evaluation. No focal wall thickening or surrounding fatty stranding. Intraperitoneal space: Increased density in the peripancreatic and perinephric fat the upper abdomen I think is due to motion artifact rather than any intrinsic inflammatory change. Bones/joints: Degenerative changes and scoliosis without acute fracture. No lytic or blastic disease. Soft tissues: Unremarkable. Other findings: Motion artifact. IMPRESSION: No focal infiltrate. No acute abnormality. Dictated and Authenticated by: Michael Aviles MD. Ordering:EPHRAIM Edmondson MD
[2021-06-28] MEDS: Insulin Aspart 300 UNITS/3 ML PEN SC ×2 (17:09→21:53)
[2021-06-28 17:46] LABS: Troponin I 0.06 ng/mL (<0.06)
[2021-06-28] MEDS: Ibuprofen 600 MG TAB PO (20:49)
[2021-06-28] MEDS: Normal Saline 250 ML IV (23:30)
[2021-06-29] VITALS (18 sets, daily range): BP systolic 84–132; BP diastolic 53–73; PULSE 82–125; RESP 17–25; TEMP 36.1–37.9; O2SAT 92–100
--- NOTE | 2021-06-29 | DI.CT_ITS ---
Exam(s) CT CHEST PE CTA EXAM: CT CHEST PE CTA CLINICAL HISTORY: hypoxia. TECHNIQUE: Imaging Protocol: CT angiography of the chest was performed using pulmonary embolus rebecca col. Multi planar reconstructions were performed. CONTRAST MATERIAL: Intravenous: Omnipaque 350 Contrast volume: 100 cc COMPARISON: CT CT CHEST WO from 06/28/2021 FINDINGS: CHEST: PULMONARY ARTERIES: Somewhat less than optimal injection timing. There are no central pulmonary embo li. Difficult to determine if there more peripheral emboli in 3rd order vessels and beyond. In alverto tion, it appears that the lower most aspects of both lower lobes were not included in the field of vi ew this study. LUNGS: 3 millimeter noncalcified nodule in the lateral basal segment of the right lower lobe noted. No other significant focal pulmonary findings. No confluent infiltrates no evidence of pulmonary inf arction. No significant focal findings in the trachea and mainstem bronchi.. There are no pleural e ffusions. MEDIASTINUM: There is no hilar nor mediastinal adenopathy. CARDIAC: Mild cardiomegaly. No pericardial effusion.Caliber of the thoracic aorta is within normal l imits. There is no significant shift of the interventricular septum. PARTIALLY VISUALIZED UPPERMOST ABDOMEN: Adrenals not included in the field of view of this study. OSSEOUS: No significant osseous lesions.. IMPRESSION: 1. Somewhat less than optimal study reasons given above.No confluent infiltrates. Small 3 millimeter noncalcified nodule noted in the lateral basal segment right lower lobe. 2. No central pulmonary emboli. More peripheral pulmonary arteries are difficult to assess accuratel y on this study. 3. No intrathoracic adenopathy. RADIATION DOSE DELIVERED: 848.22mGy.cm Total DLP DATA REPOSITORY: All CT scans at this facility are submitted to the National Radiology Data Registry (NRDR) Dose Index Registry (DIR) with the [employer] (ACR). RADIATION OPTIMIZATION: All CT scans at this facility use at least one of these dose optimization te chniques: automated exposure control; mA and/or kV adjustment per patient size (includes targeted exa ms where dose is matched to clinical indication); or iterative reconstruction.
--- NOTE | 2021-06-29 | DI.US_ITS ---
APPROVED REPORT EXAM: Comprehensive 2D, Doppler, and color-flow Echocardiogram Patient Location: In-Patient Room/Bed: [address] Developer: Michelle Myrick RDCS (AE) Indications: NSTEMI Other Information Study Quality: Fair. Technically limited study due to body habitus. Conclusion Left Ventricle : The left ventricle is normal size. The left ventricular systolic function is normal. The left ventricular ejection fraction is within the normal range. There is normal left ventricular wall thickness. There is normal LV segmental wall motion. The left ventricular diastolic function is normal. LVEF is 56%. Right Ventricle : The right ventricle is normal size. The right ventricular systolic function is norm al. The RVSP is 28.8mmHg. Atria : The left atrium size is normal. The right atrium size is normal. Mitral Valve : Mild mitral annular calcification. Trace mitral regurgitation. No evidence of mitral v alve stenosis. Great Vessels : The aortic root is normal in size. IVC is normal in size and collapses >50% with insp iration. Please see remainder of study for further details. Wall motion Left Ventricle The left ventricle is normal size. The left ventricular systolic function is normal. The left ventric ular ejection fraction is within the normal range. There is normal left ventricular wall thickness. T here is normal LV segmental wall motion. The left ventricular diastolic function is normal. There is no ventricular septal defect visualized. LVEF is 56%. Right Ventricle The right ventricle is normal size. The right ventricular systolic function is normal. The RVSP is 28 .8mmHg. Atria The left atrium size is normal. The right atrium size is normal. The interatrial septum is intact wit h no evidence for an atrial septal defect. Aortic Valve The Aortic valve is sclerotic. Number of aortic valve leaflets could not be assessed. There is no aor tic valvular stenosis. No aortic regurgitation is present. Mitral Valve Mild mitral annular calcification. No evidence of mitral valve stenosis. Trace mitral regurgitation. Tricuspid Valve The tricuspid valve is normal in structure. There is no tricuspid valve stenosis. Mild tricuspid regu rgitation. Pulmonic Valve Pulmonic valve is not well visualized. There is no pulmonic valvular stenosis. There is no pulmonic v alvular regurgitation. Great Vessels The aortic root is normal in size. The ascending aorta is normal in size. Aortic arch is not visualiz ed. IVC is normal in size and collapses >50% with inspiration. Pericardium There is no pericardial effusion. 2D Dimensions IVSD d PLAX 1.05 cm F: 0.6-1.0 LV Vol A2C d MOD 95.4 mL LVPW d PLAX 1.05 cm F: 0.6 - 1.0 LV Vol A4C d MOD 90.4 mL LVID d PLAX 4.37 cm F: 3.8 - 5.2 LA vol/ BSA A2C s A-L 28.9 mL/m2 LVDs 3.05 cm F: 2.2 - 3.5 LA vol/ BSA A4C s A-L 20.2 mL/m2 Ao Root d 2.65 cm F: 2.7 - 3.3 LA Vol/ BSA Biplane s A-L 24.2 mL/m2 RA Area A4C 12.53 cm2 LA Area A4C s MOD 16.45 cm2 RA Vol/ BSA A4C s A-L 13.6 mL/m2 LA Area A2C s MOD 19.74 cm2 Ao Asc Diam d 3.07 cm F: 2.3 - 3.1 LV EF A4C MOD 57.2 % LV EF Teichholz 57.1 % LV EF A2C MOD 55.6 % LVEF (Che's) 56.51 % F: 54 - 74 LV EF Biplane MOD 56.5 % LV Volume 70.27 mL F: 46 - 106 SV 53.20 mL LV Volume Index 34.61 mL/m2 F: 29 - 61 SV Index 26.23 mL/m2 LV Vol Biplane MOD 94.1 mL FS 29.75 % M-Mode TAPSE 2.18 cm (M/F) >1.7 LV Diastology MV E' medial 0.088 (>0.07 m/s) E/A Ratio 0.6 LV E/e MED 7.85 (<14) MV E Vmax 0.69 (0.4-1.3 m/s) MV E' lateral 0.067 (>0.1 m/s) MV A Vmax 1.20 (0.4-1.3 m/s) LV E/e LAT 10.35 (<14) MV E/A Ratio 0.56 MV E/E' medial 7.89 MV E/E' lateral 10.39 Aortic Valve LVOT Area 2.83 cm2 AoV Area Vmax 1.55 cm2 LVOT Vmax 0.98 m/s AoV Area/ BSA (Vmax) 0.76 cm2/m2 LVOT Mean Eris. 0.63 m/s DINO Mean Eris. 1.39 cm2 LVOT Peak Grad 3.9 mmHg DINO Mean Eris. Index 0.68 cm2/m2 LVOT Mean Grad 1.9 mmHg LVOT VTI 0.161 m LVOT Diam s 1.85 cm AoV Vmax 1.80 m/s Velocity Ratio 0.54 AoV Mean Eris. 1.28 m/s AoV Peak Grad 12.9 mmHg LVOT SV 45.49 mL AoV Mean Grad 7.3 mmHg AoV VTI 0.291 m AoV Area VTI 1.56 cm2 AoV Area/ BSA (VTI) 0.77 cm/m2 Mitral Valve MV DT 200 (160-240 msec) MV PHT 58 msec MV Area PHT 3.79 cm2 MV VTI 0.367 m MV Area VTI 1.24 (4.0-6.0 cm2) Pulmonary Valve PV Vmax 1.14 (0.5-1.5 m/s) RVOT Peak Gr. 1.31 mmHg PV Peak Grad 5.2 mmHg RVOT Mean Gr. 0.75 mmHg PV Mean Grad 3.0 mmHg RVOT VTI 0.088 m PV VTI 0.149 m RVOT Vmax 0.57 m/s Tricuspid Valve TR Peak Grad 25.7 mmHg TR Vmax 2.54 m/s RA Pressure 3.00 mmHg RVSP (TR) 28.8 mmHg
[2021-06-29] MEDS: Normal Saline 250 ML IV (02:31)
[2021-06-29] MEDS: Normal Saline 1,000 ML 125 ML IV (03:05)
[2021-06-29] MEDS: Levothyroxine 50 MCG TAB 25 MCG PO (06:22)
[2021-06-29 06:39] LABS: HCT 23.4 % (36.0-46.0); HGB 7.7 g/dL (11.2-15.7); MCH 33.3 pg (27.0-33.0); MCHC 32.9 % (32.0-36.0); MCV 101.3 fL (80-95); MPV 9.9 fL (8.0-11.0); Nucleated RBC 0 %; Platelet Count 117 10^3/uL (130-400); RBC 2.31 10^6/uL (3.93-5.22); RDW 16.8 % (11.7-14.6); RDW-SD 59.9 fL; WBC 12.93 10^3/uL (4.4-10.8)
[2021-06-29 06:48] LABS: Anion Gap 7.8 mmol/L (3-11); BUN 19 mg/dL (7-18); CO2 27.2 mmol/L (21.0-32.0); CREATININE 1.1 mg/dL (0.55-1.02); Calcium 8.2 mg/dL (8.5-10.1); Chloride 99 mmol/L (98-107); Estimated GFR 47.79 (mL/min/1.73m2); Glucose 147 mg/dL (74-106); Potassium 3.4 mmol/L (3.5-5.1); Sodium 134 mmol/L (136-145)
[2021-06-29 07:09] LABS: Absolute Lymphocyte Count 0.39 10^3/uL (1.2-3.4); Absolute Monocyte Count 1.03 10^3/uL (0.1-0.8); Absolute Neutrophil Count 11.51 10^3/uL (1.2-6.7); Bands % 10
[2021-06-29 07:10] LABS: Diff Comment Manual Differential; RBC Morphology Normal
--- NOTE | 2021-06-29 07:15 | RT.EKG_ITS ---
APPROVED REPORT Exam: Resting ECG Reason for Exam: tachycardia Patient Location: I HR:119 bpm ECG Measurements Heart Rate 119 AXIS PA 170 P 53 QRSd 92 QRS -40 QT 322 T 55 QTc 454 Conclusion Sinus tachycardia...rate> 99 Inferior infarct, old...Q >35mS, II III aVF Anteroseptal infarct, age indeterminate...Q >35mS, T neg, V1-V2
--- NOTE | 2021-06-29 07:21 | PCNE_ITS ---
Date of service: 06/29/21 Time of Service: 07:21 History of Present Illness History of Present Illness Chief Complaint: UTI Narrative: From H and P: History of Present Illness Chief Complaint: Generalized weakness, a fall at home, worsening balance Narrative: Ms Angulo is an 80 year old female with PMHx of uterine cancer s/p hysterectomy, on chemo, as well as HTN, NIDDM2, FAUSTO on CPAP, memory loss felt to possibly be due to depression rather than dementia, who was brought to [facility] ED today after a witness fall (slipping to the ground) with RLE weakness. Per the ED provider, the patient's stated that for the last 3 days, the patient has been more fatigued, weak, and her balance has been off. The patient cannot tell me why she is here in the hospital today, endorses the sensation of feeling like she is falling, a headache, B hip pain, and B foot pain. She feels thirsty. She states she does not know why she is in the hospital and does not remember events of today. Her memory deficits/cognition seem to be at her baseline, per ED provider's conversation with the . The patient does have chronic R knee pain which may have contributed to the fall. ER workup revealed a UTI, probable pneumonia, hyponatremia, hypomagnesemia. She tested negative for COVID-19. She does have a leucocytosis of 24. Her last dose of neupogen was 06/17/21. The patient was initiated on empiric levofloxacin. Hospitalist admission was re Interim Hx: When I came to see Janett she was not doing well. She asked for some sips of water. Within minutes she vomited the water. She looked very ashen and stated that she did not feel well at all. Staff was having a difficult time getting vitals on her. Nursing states that she had been pretty stable overnight and this was a big change for her. I did ask her about care and if there were limits to the care that she wanted. Her reply was that she really could not think right now and that I should ask her Esteban Assessment and Plan Assessment and plan (1) Elevated troponin: Status: Acute (2) Dehydration: Status: Acute (3) Sepsis: Status: Acute (4) Obstructive sleep apnea: Status: Chronic (5) Mild cognitive impairment: Status: Acute (6) Palliative care patient: Status: Acute Assessment and plan: Due to her condition when I saw her, I was concerned about deteriorating condition. I did ask Janett about her choices. She stated that she could not make decisions at that time and asked me to ask her Esteban. I did call Esteban and he said that in the past Janett has always responded well to treatment and that at this time he would like her to remain a full code and get CPR if her heart stops or her breathing stops. Because she is a full code Esteban cannot come to visit until 1 PM today. I did briefly discussed Janett and her 's decision with Dr. Taylor Review of Systems Unobtainable due to mental condition [facility] Active Problem List Elevated troponin (Acute) Discharge planning issues (Acute) DVT prophylaxis (Acute) Hyponatremia (Acute) Hypomagnesemia (Acute) Dehydration (Acute) Ambulatory dysfunction (Acute) Pneumonia (Acute) UTI (urinary tract infection) (Acute) Sepsis (Acute) Obstructive sleep apnea (Chronic) Hypertension (Chronic) Abnormal vaginal bleeding (Acute) Thickened endometrium (Acute) Mild cognitive impairment (Acute) Urgency incontinence (Acute 11/05/16) Tinnitus (Acute 12/31/13) Sensorineural hearing loss, bilateral (Acute 12/31/13) Frequency of micturition (Acute 11/05/16) Medical History Anxiety Depression Diabetes mellitus type 2 in obese Dry mouth Dysphagia Frequent falls Hypercholesteremia Hypothyroidism Irregular bowel habits Lordosis Low back pain Metabolic syndrome Neuropathy Onychomycosis Sensorineural hearing loss Urinary incontinence Vertigo Surgical History Hx of cholecystectomy Status post bilateral knee replacements Family History Brother Heart disease Dementia Depression Father Heart disease Dementia Depression Mother Dementia Depression Social History Smoking/Tobacco Use Status: Never Smoking risk assessment performed?: Yes Alcohol Intake: current Alcohol Intake frequency: holidays/special occasions only Drug use: Never Substance use type: does not use Household members: spouse Housing: house What is your relationship status?: Panel score (0-1 are the most socially isolated patients): 1 Seatbelt use: always Do you feel safe at home: Yes Do you feel safe in your relationship?: Yes Exam Narrative Exam Narrative: Lying in bed. She needed help to turn move and sit up. She was very ashen especially perioral. She vomited about 5 minutes after I came into the room. Her heart was tachycardic. Lungs very shallow breathing. See nurses notes for vitals. Results Last Vital Signs Temp 97.0 F L 06/29/21 06:26 Pulse 93 H 06/29/21 06:26 Resp 17 06/29/21 06:26 BP 111/73 06/29/21 06:26 Pulse Ox 93 06/29/21 06:26 Labs Result diagrams: 06/29/21 13:05 06/29/21 06:10 Labs: Laboratory Results - last 24 hr 06/28/21 06/28/21 06/28/21 09:45 09:45 10:00 WBC 24.00 H RBC 2.68 L Hgb 9.1 L Hct 27.2 L MCV 101.5 H MCH 34.0 H MCHC 33.5 RDW 16.4 H Plt Count 146 D MPV 9.8 Immature Gran % See Differential Neutrophils % 85.0 Band Neutrophils % 10 Lymphocytes % 0.0 Monocytes % 1.0 Eosinophils % 0.0 Basophils % 0.0 Metamyelocytes % 2 Myelocytes % 2 Nucleated RBC % 0 Absolute Neutrophils 22.80 H Absolute Lymphocytes 0.00 L Absolute Monocytes 0.24 Absolute Eosinophils 0.00 Absolute Basophils 0.00 RBC Morphology See Below Polychromasia Present Anisocytosis 1+ Macrocytosis 1+ PT 11.6 H INR 1.2 H VBG Lactate Sodium 129 L Potassium 4.1 Chloride 93 L Carbon Dioxide 25.2 Anion Gap 10.8 BUN 21 H Creatinine 1.1 H Estimated GFR/1.73 m2 47.79 Glucose 254 H Calcium 8.6 Magnesium 1.4 L Total Bilirubin 1.2 H AST 23 ALT 21 Alkaline Phosphatase 178 H Creatine Kinase Troponin I 0.10 H* NT-Pro-B Natriuret Pep Total Protein 6.8 Albumin 3.0 L TSH 1.19 Urine Color Urine Clarity Urine pH Ur Specific [place] Urine Protein Urine Ketones Urine Blood Urine Nitrite Urine Bilirubin Urine Urobilinogen Ur Leukocyte Esterase Urine RBC Urine WBC Ur Epithelial Cells Urine Crystals Urine Bacteria Urine Casts Urine Mucus Ur Culture Indicated? Urine Glucose COVID-19 Source SARS-CoV-2 (PCR) 06/28/21 06/28/21 06/28/21 10:09 11:05 12:40 WBC RBC Hgb Hct MCV MCH MCHC RDW Plt Count MPV Immature Gran % Neutrophils % Band Neutrophils % Lymphocytes % Monocytes % Eosinophils % Basophils % Metamyelocytes % Myelocytes % Nucleated RBC % Absolute Neutrophils Absolute Lymphocytes Absolute Monocytes Absolute Eosinophils Absolute Basophils RBC Morphology Polychromasia Anisocytosis Macrocytosis PT INR VBG Lactate Sodium Potassium Chloride Carbon Dioxide Anion Gap BUN Creatinine Estimated GFR/1.73 m2 Glucose Calcium Magnesium Total Bilirubin AST ALT Alkaline Phosphatase Creatine Kinase Troponin I 0.11 H* NT-Pro-B Natriuret Pep Total Protein Albumin TSH Urine Color Yellow Urine Clarity Cloudy Urine pH 6.0 Ur Specific [place] >= 1.030 H Urine Protein >=300 H Urine Ketones 40 H Urine Blood Moderate H Urine Nitrite Positive H Urine Bilirubin Small H Urine Urobilinogen 2.0 H Ur Leukocyte Esterase Moderate H Urine RBC 10-20 H Urine WBC >50 H Ur Epithelial Cells Few Urine Crystals Negative Urine Bacteria Moderate Urine Casts 5-10 Hyaline Urine Mucus Trace Ur Culture Indicated? Yes Urine Glucose Negative COVID-19 Source Nasal/Nares SARS-CoV-2 (PCR) Negative 06/28/21 06/28/21 06/28/21 12:40 12:40 17:05 WBC RBC Hgb Hct MCV MCH MCHC RDW Plt Count MPV Immature Gran % Neutrophils % Band Neutrophils % Lymphocytes % Monocytes % Eosinophils % Basophils % Metamyelocytes % Myelocytes % Nucleated RBC % Absolute Neutrophils Absolute Lymphocytes Absolute Monocytes Absolute Eosinophils Absolute Basophils RBC Morphology Polychromasia Anisocytosis Macrocytosis PT INR VBG Lactate 1.2 Sodium Potassium Chloride Carbon Dioxide Anion Gap BUN Creatinine Estimated GFR/1.73 m2 Glucose Calcium Magnesium Total Bilirubin AST ALT Alkaline Phosphatase Creatine Kinase 67 Troponin I 0.06 NT-Pro-B Natriuret Pep 3783 H Total Protein Albumin TSH Urine Color Urine Clarity Urine pH Ur Specific [place] Urine Protein Urine Ketones Urine Blood Urine Nitrite Urine Bilirubin Urine Urobilinogen Ur Leukocyte Esterase Urine RBC Urine WBC Ur Epithelial Cells Urine Crystals Urine Bacteria Urine Casts Urine Mucus Ur Culture Indicated? Urine Glucose COVID-19 Source SARS-CoV-2 (PCR) 12/06/21 12/06/21 06:10 06:10 WBC 12.93 H D RBC 2.31 L Hgb 7.7 L Hct 23.4 L MCV 101.3 H MCH 33.3 H MCHC 32.9 RDW 16.8 H Plt Count 117 L MPV 9.9 Immature Gran % 0.0 Neutrophils % 79.0 Band Neutrophils % 10 Lymphocytes % 3.0 Monocytes % 8.0 Eosinophils % 0.0 Basophils % 0.0 Metamyelocytes % Myelocytes % Nucleated RBC % 0 Absolute Neutrophils 11.51 H Absolute Lymphocytes 0.39 L Absolute Monocytes 1.03 H Absolute Eosinophils 0.00 Absolute Basophils 0.00 RBC Morphology Normal Polychromasia Anisocytosis Macrocytosis PT INR VBG Lactate Sodium 134 L Potassium 3.4 L Chloride 99 Carbon Dioxide 27.2 Anion Gap 7.8 BUN 19 H Creatinine 1.1 H Estimated GFR/1.73 m2 47.79 Glucose 147 H D Calcium 8.2 L Magnesium 2.0 Total Bilirubin AST ALT Alkaline Phosphatase Creatine Kinase Troponin I NT-Pro-B Natriuret Pep Total Protein Albumin TSH Urine Color Urine Clarity Urine pH Ur Specific [place] Urine Protein Urine Ketones Urine Blood Urine Nitrite Urine Bilirubin Urine Urobilinogen Ur Leukocyte Esterase Urine RBC Urine WBC Ur Epithelial Cells Urine Crystals Urine Bacteria Urine Casts Urine Mucus Ur Culture Indicated? Urine Glucose COVID-19 Source SARS-CoV-2 (PCR)
[2021-06-29 07:23] LABS: Vitamin B12 > 2000 pg/mL (193-986)
[2021-06-29 08:14] LABS: Troponin I < 0.05 ng/mL (<0.06)
[2021-06-29] MEDS: Normal Saline 1,000 ML 75 ML IV (08:29)
[2021-06-29 08:40] LABS: Lactate 1.5 mmol/L (0.6-1.4)
[2021-06-29] MEDS: Cholecalciferol (Vitamin D3) 1,000 UNIT TAB 5000 UNITS PO (08:44)
[2021-06-29] MEDS: Mirabegron 50 MG TABCR PO (08:45)
[2021-06-29] MEDS: ACETAMINOPHEN 1,000 MG/100 ML BTL 400 MG IVPB ×2 (08:45→17:54)
[2021-06-29] MEDS: Citalopram 20 MG TAB PO (08:45)
[2021-06-29] MEDS: Insulin Aspart 300 UNITS/3 ML PEN SC ×4 (08:46→21:28)
[2021-06-29] MEDS: Ondansetron 4 MG/2 ML VIAL IVP (08:50)
[2021-06-29] MEDS: Normal Saline Flush 10 ML SYR IVP ×2 (08:51→09:16)
[2021-06-29] MEDS: Pantoprazole 40 MG VIAL IVP (09:16)
--- NOTE | 2021-06-29 09:58 | PT.INIE ---
Date of service: 06/29/21 Time of Service: 09:58 PT Notes Visit Reasons: UTI, pneumonia, ambulatory dysfunction Physical Therapy Inpatient Initial Evaluation Date: 06/29/2021 Referring Doctor: Debo Taylor MD PT Orders: PT CONSULT: Limited ability Precautions: Fall. Standard. Activity as tolerated. Patient Profile/Admitting Diagnosis: Patient is a an 80-year-old female who presented to the ED on 06/28/2021 due to generalized weakness, fall at home, and worsening balance. Patient is diagnosed with sepsis, urinary tract infection, pneumonia, elevated troponin, ambulatory dysfunction, dehydration, hypomagnesemia and hyponatremia. PMHX: Active Problem List Elevated troponin (Acute) Discharge planning issues (Acute) DVT prophylaxis (Acute) Hyponatremia (Acute) Hypomagnesemia (Acute) Dehydration (Acute) Ambulatory dysfunction (Acute) Pneumonia (Acute) UTI (urinary tract infection) (Acute) Sepsis (Acute) Obstructive sleep apnea (Chronic) Hypertension (Chronic) Abnormal vaginal bleeding (Acute) Thickened endometrium (Acute) Mild cognitive impairment (Acute) Urgency incontinence (Acute 11/05/16) Tinnitus (Acute 12/31/13) Sensorineural hearing loss, bilateral (Acute 12/31/13) Frequency of micturition (Acute 11/05/16) Medical History Anxiety Depression Diabetes mellitus type 2 in obese Dry mouth Dysphagia Frequent falls Hypercholesteremia Hypothyroidism Irregular bowel habits Lordosis Low back pain Metabolic syndrome Neuropathy Onychomycosis Sensorineural hearing loss Urinary incontinence Vertigo Surgical History Hx of cholecystectomy Status post bilateral knee replacements Social History/Home Situation: Patient is unreliable and appears to be confused but she states that she has a flight of stairs to the bedroom of their house. Initially said that at home she was a using a walker inside the house but then later on indicates that she holds onto furnitures to walk and that her helps her a lot with it. Equipment Owned/DME: FWW? Subjective: Agreeable to be assisted from bed to bedside chair but is very much fearful of falling. Complains of being weak and very thirsty. Asked for water several times during this session. Nurse Ramos made aware. Objective: General Observation: Telemetry monitoring in place. Obese. IV in left UE. Mental Status: Alert and oriented as to person, place, time, and purpose. Able to pay attention, focus, and respond appropriately. Pain: Moderate pain in B knees and feet however was able to push against PT's resistance during manual muscle testing Vital Signs: Closely monitored bu nursing staff and have been WNL ROM: Right Upper Extremity: Shoulder Flexion WFL. Shoulder abduction WFL. Elbow flexion WFL. Wrist flexion WFL. Functional opening and closing of hand WFL. Left Upper Extremity: Shoulder Flexion WFL. Shoulder abduction WFL. Elbow flexion WFL. Wrist flexion NT due to IV splint in L UE. Functional opening and closing of hand WFL. Right Lower Extremity: Hip flexion WFL. Hip abduction WFL. Knee flexion WFL. Ankle dorsiflexion WFL. Ankle plantarflexion WFL. Left Lower Extremity: Hip flexion WFL. Hip abduction WFL. Knee flexion WFL. Ankle dorsiflexion WFL. Ankle plantarflexion WFL. Strength: Right Upper Extremity: Shoulder flexors 3/5. Shoulder abductors 3/5. Elbow flexors 3/5. Elbow extensors 3/5. Geotechnician strong. Left Upper Extremity: Shoulder flexors 3/5. Shoulder abductors 3/5. Elbow flexors NT due to IV splint in L UE. Elbow extensors NT due to IV splint in L UE. Geotechnician strong. Right Lower Extremity: Hip flexors 3+/5. Hip abductors 3+/5. Knee flexors 3+/5. Knee extensors 3+/5. Ankle dorsiflexors 3+/5. Ankle plantarflexors 3+/5. Left Lower Extremity: Hip flexors 3+/5. Hip abductors 3+/5. Knee flexors 3+/5. Knee extensors 3+/5. Ankle dorsiflexors 3+/5. Ankle plantarflexors 3+/5. Bed Mobility/Transfers: Supine to sit with moderate assist of 2 and a moderate cues for safe/correct technique Sit to stand with contact-guard assist of 2 using STEDY lift Stand to sit with contact-guard assist of 2 using STEDY lift Bed to reclining chair with contact-guard assist of 2 using STEDY lift Gait: Not safe to be tested at this time due to medical condition and confusion. Balance: Static Sitting: Fair Dynamic Sitting: Fair Static Standing: Unable to test Dynamic Standing: Unable to test Special Tests: Mobility Limitations Standardized Measure [facility] AM-PAC 6 clicks Basic Mobility Inpatient Short Form: Raw Score: 8 CMS Score: 87% deficit Informed Consent/Education: Patient was instructed in purpose of PT consult and plan of care. Agreeable to proceed with established PT POC to achieve personal goals. Assessment: Fearfulness of falling, mild to moderate confusion, generalized weakness, and pain in BLE limiting ability to perform mobility ADLs at this time. Patient will require the use of STEDY lift for all transfers to reduce fall risk and ensure staff safety. Patient presents with clinical signs and symptoms consistent with current/admitting diagnoses that have resulted to mobility limitations, gait instability, generalized weakness, and overall ADL decline as demonstrated by the following impairment level findings: 1. Decreased strength to B UE/LE [] major muscle groups 2. Impaired sitting/standing balance 3. Impaired activity tolerance 4. Shortness of breath 5. Pain in the knees and feet 6. Fearfulness of falling Impairments are contributing to the following functional limitations: 1. Decline in bed mobility skills 2. Decline in transfer skills 3. Inability to perform ambulation 4. Increased completion time for mobility ADL performance 5. Increased risk for falls 6. Difficulty with managing steps alone safely Patient is assessed as a 51592 moderate complexity based on the following: History: 80-year-old female with past medical history as indicated above Examination: Demonstrable impairment in strength, balance, and mobility level with underlying impairments and functional limitations as exhibited above as well as deficit score of 87% utilizing the [facility] Mobility Inpatient Short Form Presentation: Evolving Decision Makin moderate complexity Goals: Goals X1 week 1. Supine-Sit minimal assist 2. Sit-Supine minimal assist 3. Sit-Stand minimal assist 4. Stand-Sit minimal assist with FWW 5. Bed-Chair minimal assist with FWW 6. Chair-Bed minimal assist with FWW 7. minimal assist for gait on level surface with use of FWW for at least 50 feet without report of pain nor dyspnea 8. Independent stair negotiation while holding onto B rails for at least 10 steps without report of pain nor dyspnea 9. Fair static and dynamic standing balance/tolerance Plan of Care/Treatment Plan: 1-2x/day, 7 days/week x 1 week. Plan of care has been reviewed with the OB GYN PHYSICIAN ASSISTANT providing the service under Physical Therapy direction. Initiate Physical Therapy intervention for pain management as needed, strengthening, bed mobility, transfers, gait, stairs, balance training, and use of assistive device. DISCHARGE RECOMMENDATIONS: [] Home with no services [] [] Home with services [specify] [] Home with outpatient PT [] [X] SNF for continued rehabilitation patient will benefit from half-way facility placement for continued skilled physical therapy services in order to progress mobility level, strength, and balance in preparation for a safe discharge to home. [] Ancillary Specialist Care [] [] SNF versus LTC based on ability to participate and progress [] TREATMENT CODE/TIME: 04561 x 25 minutes beginning at 9:58 AM. Thank you for the opportunity to participate in the care of this patient. Hanna Borges PT, DPT, CLT [facility] [place], [place] Years
--- NOTE | 2021-06-29 10:27 | INITIAL_ITS ---
- If Service Date Differs Date of service: 06/29/21 Time of Service: 10:27 Care Management Initial Assess REASON FOR HOSPITALIZATION:: UTI, Pneumonia, ambulatory dysfunction. PAST MEDICAL HISTORY/PAST SURGICAL HISTORY:: Active Problem List. Elevated troponin (Acute). Discharge planning issues (Acute). DVT prophylaxis (Acute). Hyponatremia (Acute). Hypomagnesemia (Acute). Dehydration (Acute). Ambulatory dysfunction (Acute). Pneumonia (Acute). UTI (urinary tract infection) (Acute). Sepsis (Acute). Obstructive sleep apnea (Chronic). Hypertension (Chronic). Abnormal vaginal bleeding (Acute). Thickened endometrium (Acute). Mild cognitive impairment (Acute). Urgency incontinence (Acute 11/05/16). Tinnitus (Acute 12/31/13). Sensorineural hearing loss, bilateral (Acute 12/31/13). Frequency of micturition (Acute 11/05/16). Medical History. Anxiety. Depression. Diabetes mellitus type 2 in obese. Dry mouth. Dysphagia. Frequent falls. Hypercholesteremia. Hypothyroidism. Irregular bowel habits. Lordosis. Low back pain. Metabolic syndrome. Neuropathy. Onychomycosis. Sensorineural hearing loss. Urinary incontinence. Vertigo. Surgical History. Hx of cholecystectomy. Status post bilateral knee replacements PREVIOUS FUNCTIONAL STATUS/SOCIAL/FAMILY SUPPORTS:: Janett lives in [place] with her , Esteban. They have two children who both live in [place]. She is a retired teacher, and is independent at baseline. CURRENT FUNCTIONAL STATUS:: Janett, who goes by Peg was lying in bed when CM met with her. She was pleasant and engaged in conversation, although she a ppeared to be uncomfortable. Per report, blood cultures will be repeated to determine antibitioc course. She had an echo today, which showed that her LVEF is 56%. CM will continue to follow. ADVANCE DIRECTIVES:: Not on file. Has patient been provided with info about the portal/API?: Yes Did the patient sign up for the portal?: No CODE STATUS:: Full Code INSURANCE COVERAGE / FINANCIAL ISSUES:: MCR/ BCBS CURRENT HOME/COMMUNITY SERVICES/EQUIPMENT:: No current services or equipment. PRIMARY CARE PHYSICIAN:: King Ramos POTENTIAL DISCHARGE NEEDS:: Evaluations for further needs, follow up appoint ments. PATIENT/FAMILY EDUCATION NEEDS:: Review discharge instructions and limitations, discussion of self care needs including ask me three. ANTICIPATED BARRIERS TO DISCHARGE:: None identified at this time. TRANSPORTATION:: Via private vehicle by her . PLAN:: Anticipate Janett will return home when medically cleared. Her will drive her home via private vehicle when ready. She will follow up with her PCP and discharge plan of care. CM will continue to follow.
--- NOTE | 2021-06-29 10:29 | PHA.REVIEW ---
Pharmacy Admission Review - Admission Clinical Review (Last Reviewed 06/28/21 @ 15:22 by AURELIANO Agudelo) Palliative care patient (Acute) Elevated troponin (Acute) Discharge planning issues (Acute) DVT prophylaxis (Acute) Hyponatremia (Acute) Hypomagnesemia (Acute) Dehydration (Acute) Ambulatory dysfunction (Acute) UTI (urinary tract infection) (Acute) Sepsis (Acute) Mild cognitive impairment (Acute) No Known Allergies Allergy (Unverified 06/28/21 09:29) Resuscitation Status Full Code Height 5 ft 2 in Weight 101.8 kg - Renal Dosing Renal Dosing: BUN 19 mg/dL (7-18) H 06/29/21 06:10 Creatinine 1.1 mg/dL (0.55-1.02) H 06/29/21 06:10 Medications needing adjustments: Reviewed (SCr: 1.1, CrCl~45.6mL/min (using adjusted body weight). All medications dosed appropriately.) - Anticoagulation Anticoagulation: Hgb 7.7 g/dL (11.2-15.7) L 06/29/21 06:10 Hct 23.4 % (36.0-46.0) L 06/29/21 06:10 Plt Count 117 10^3/uL (130-400) L 06/29/21 06:10 INR 1.2 (0.9-1.1) H 06/28/21 10:00 Creatinine 1.1 mg/dL (0.55-1.02) H 06/29/21 06:10 DVT Prophylaxis: Reviewed Medications: Enoxaparin (Enoxaparin 40mg SC Q24H - currently held, r/o bleed.) - Opiate Usage Evaluate Pain Scale/Pains Meds: N/A (No opiates this admission. Pain scale ratings 4 to 5.) - Relevant Labs Sodium 134 mmol/L (136-145) L 06/29/21 06:10 Potassium 3.4 mmol/L (3.5-5.1) L 06/29/21 06:10 Chloride 99 mmol/L (98-107) 06/29/21 06:10 Magnesium 2.0 mg/dL (1.8-2.4) 06/29/21 06:10 Electrolytes, C-Reactive P, ESR: Reviewed (Sodium slightly low (134), potassium slightly low (3.4).) - DM Control DM Control: Glucose 147 mg/dL (74-106) H D 06/29/21 06:10 Finger Stick Blood Glucose 175 Finger Stick Blood Glucose 175 Finger Stick Blood Glucose 175 Insulin Dosing: Reviewed (Blood glucose elevated, insulin aspart SS initiated.) - Heart Failure/MT Heart Failure/MT: Troponin I < 0.05 ng/mL (<0.06) 06/29/21 06:10 NT-Pro-B Natriuret Pep 3783 pg/mL (<300) H 06/28/21 12:40 EF%, АЛЕКСАНДР's, B-Blockers, Diuretics: N/A - BP Control BP Control: Blood Pressure 132/73 Blood Pressure 111/73 Blood Pressure 90/59 Blood Pressure 84/53 Blood Pressure 84/56 If elevated: N/A (Blood pressure low overnight, normalizing now.) - Qtc Review If Elevated: N/A (QTc 447 on admission.) - IV to PO Switch IV Medications: Reviewed - Home Meds Home Med List reviewed: Reviewed Relevent Home Meds Not ordered & why?: Metformin 1000mg daily (held due to imaging), Lisinopril 10mg daily (held, patient was hypotensive), Atorvastatin 10mg daily not ordered. - Current meds Current Medication Order Review: Reviewed - Comments Comments/Follow Ups: Continue to monitor H&H - restart Enoxaparin and change pantoprazole IV to PO, potassium, vitals, labs and medication changes. Antibiotic Activity - Pharmacy Antibiotic Review Pharmacy Antibiotic Activity: Reviewed, no change (Continue Levofloxacin 750mg Q48H - urine and blood (gram negative bandar).)
--- NOTE | 2021-06-29 10:58 | W.INDIABCONS ---
Date of service: 06/29/21 Time of Service: 10:59 Diabetes Inpatient Consult DESCRIPTION/ASSESSMENT: Ms. Angulo is here s/p fall, weakness. Her PO intake is poor on a cho consistent/low sodium diet. Her finger sticks have been in target range. She is getting correction insulin at meals and HS. No recent A1C but her diabetes has been in control in the past. Looking at her weight history, she has had an 8% weight loss over the past 8 months which is not significant and also common at her age. She is currently 62 and 222 lbs. BMI is 41 kg/m2 c/w class 3 severe obesity. INTERVENTION: No specific intervention at this time. Diabetes education is not appropriate given her mental status. PLAN: Will continue to follow progress, blood glucose, PO and weight. Will evaluate nutrition care plan ongoing and adjust as needed. Time Spent in Nutritional Counseling and Treatment: 0
[2021-06-29 13:19] LABS: HCT 23.5 % (36.0-46.0); HGB 7.8 g/dL (11.2-15.7)
[2021-06-29] MEDS: predniSONE 20 MG TAB 40 MG PO (15:41)
--- NOTE | 2021-06-29 16:10 | W.PM.PROGNOT ---
Date of Service Date of service: 06/29/21 Time of Service: 16:11 Assessment and Plan Assessment and plan (1) Sepsis: Status: Acute Assessment and plan: With GNR bacteremia, Due to GNR UTI, POA. I think this morning's episode was patient's bacteremia triggering fever, rigors, nausea/vomiting, resulting in an aspiration event and aspiration pneumonitis. Continue empiric levofloxacin (day 2). D/c IVF. Repeat blood cultures. We need to remember that the patient is s/p TKR and might have to consider infected prosthesis. (2) Acute respiratory failure with hypoxia: Status: Acute Assessment and plan: As above. PE ruled out with a negative CTA. No evidence of PNA, but the story is c/w aspiration pneumonitis. Trial prednisone and attempt to wean O2 as tolerated. (3) Aspiration pneumonitis: Status: Acute Assessment and plan: As above (4) UTI (urinary tract infection): Status: Acute Assessment and plan: As above (5) Elevated troponin: Status: Acute Assessment and plan: due to demand ischemia associated with her sepsis. LVEF is 56% on echo today and there are no wall motion abnormalities. No further ischemic workup at this time. D/c tele when HR normalizes. (6) Ambulatory dysfunction: Status: Acute Assessment and plan: In setting of sepsis and chronic R knee pain. As above PT. Consider infected knee prosthesis (7) Dehydration: Status: Acute Assessment and plan: As above (8) Hypomagnesemia: Status: Resolved Assessment and plan: recheck in am (9) Hyponatremia: Status: Acute Assessment and plan: The patient is now euvolemic, but drinking a lot of free water. Will d/c citalopram. Also consider SIADH. Monitor Na. (10) Obstructive sleep apnea: Status: Chronic Assessment and plan: Continue Home CPAP (11) DVT prophylaxis: Status: Acute Assessment and plan: Sc lovenox (12) Discharge planning issues: Status: Acute Assessment and plan: Full code as per palliative care consult PT consulted Subjective Subjective Interval history since last seen: Ms Angulo became tachycardic to 120s-130s with a borderline fever, borderline hypotension, and nausea this morning. She vomited. Her O2 requirement went from room air to 5-6L of O2 by initially oxymask. She was then transitioned to nasal canula and has felt significantly better since. Her Blood cx are growing GNR. The patient denies dizziness, chest pain, shortness of breath at rest. She does endorse COHN. No nausea now. She has been drinking a lot of water, per nursing. Exam Narrative Exam Narrative: General: Pleasant anxious elderly obese female, looks much better this afternoon than she did this am. No dyspnea/tachypnea while laying flat. On O2 at 6L by NC. A&Ox2. HEENT: EOMI, MMM Cardiovascular: RRR, no m/r/g Lungs: CTAB/diminished breath sounds. Gastrointestinal: soft, obese, nontender Extremities: no edema/clubbing/cyanosis BLE's Objective Last Vital Signs Temp 36.3 C L 06/29/21 15:08 Pulse 82 06/29/21 15:08 Resp 25 H 06/29/21 15:08 BP 102/67 06/29/21 15:08 Pulse Ox 94 06/29/21 15:42 Laboratory Results - last 24 hr 06/28/21 06/29/21 06/29/21 17:05 06:10 06:10 WBC 12.93 H D RBC 2.31 L Hgb 7.7 L Hct 23.4 L MCV 101.3 H MCH 33.3 H MCHC 32.9 RDW 16.8 H Plt Count 117 L MPV 9.9 Immature Gran % 0.0 Neutrophils % 79.0 Band Neutrophils % 10 Lymphocytes % 3.0 Monocytes % 8.0 Eosinophils % 0.0 Basophils % 0.0 Nucleated RBC % 0 Absolute Neutrophils 11.51 H Absolute Lymphocytes 0.39 L Absolute Monocytes 1.03 H Absolute Eosinophils 0.00 Absolute Basophils 0.00 RBC Morphology Normal VBG Lactate Sodium 134 L Potassium 3.4 L Chloride 99 Carbon Dioxide 27.2 Anion Gap 7.8 BUN 19 H Creatinine 1.1 H Estimated GFR/1.73 m2 47.79 Glucose 147 H D Calcium 8.2 L Magnesium 2.0 Troponin I 0.06 < 0.05 Vitamin B12 06/29/21 06/29/21 06/29/21 06:10 08:35 13:05 WBC RBC Hgb 7.8 L Hct 23.5 L MCV MCH MCHC RDW Plt Count MPV Immature Gran % Neutrophils % Band Neutrophils % Lymphocytes % Monocytes % Eosinophils % Basophils % Nucleated RBC % Absolute Neutrophils Absolute Lymphocytes Absolute Monocytes Absolute Eosinophils Absolute Basophils RBC Morphology VBG Lactate 1.5 H Sodium Potassium Chloride Carbon Dioxide Anion Gap BUN Creatinine Estimated GFR/1.73 m2 Glucose Calcium Magnesium Troponin I Vitamin B12 > 2000 H
[2021-06-29] MEDS: Levalbuterol 1.25 MG/3 ML UPD VIAL UPD (16:13)
[2021-06-29] MEDS: Normal Saline 500 ML 100 ML IV (17:54)
[2021-06-30] VITALS (9 sets, daily range): BP systolic 100–123; BP diastolic 69–81; PULSE 87–92; RESP 17–18; TEMP 36–36.6; O2SAT 92–98
[2021-06-30] MEDS: Levothyroxine 50 MCG TAB 25 MCG PO (05:47)
[2021-06-30 07:16] LABS: HCT 22.3 % (36.0-46.0); HGB 7.4 g/dL (11.2-15.7); MCH 33.8 pg (27.0-33.0); MCHC 33.2 % (32.0-36.0); MCV 101.8 fL (80-95); MPV 10.1 fL (8.0-11.0); Nucleated RBC 0 %; Platelet Count 141 10^3/uL (130-400); RBC 2.19 10^6/uL (3.93-5.22); RDW 16.3 % (11.7-14.6); RDW-SD 59.6 fL; WBC 20.14 10^3/uL (4.4-10.8)
[2021-06-30 07:29] LABS: Anion Gap 8.8 mmol/L (3-11); BUN 18 mg/dL (7-18); CO2 26.2 mmol/L (21.0-32.0); CREATININE 0.9 mg/dL (0.55-1.02); Calcium 8.8 mg/dL (8.5-10.1); Chloride 99 mmol/L (98-107); Glucose 209 mg/dL (74-106); Potassium 4.4 mmol/L (3.5-5.1); Sodium 134 mmol/L (136-145)
[2021-06-30] MEDS: Insulin Aspart 300 UNITS/3 ML PEN SC ×4 (08:13→21:16)
[2021-06-30 08:14] LABS: Absolute Monocyte Count 1.01 10^3/uL (0.1-0.8); Absolute Neutrophil Count 17.72 10^3/uL (1.2-6.7); Bands % 9; Metamyelocytes % 4; Myelocytes % 1
[2021-06-30] MEDS: Cholecalciferol (Vitamin D3) 1,000 UNIT TAB 5000 UNITS PO (08:14)
[2021-06-30] MEDS: Normal Saline Flush 10 ML SYR IVP ×3 (08:14→11:42)
[2021-06-30 08:15] LABS: Anisocytosis 1+; Diff Comment Manual Differential; Polychromasia Present
[2021-06-30] MEDS: Mirabegron 50 MG TABCR PO (08:15)
[2021-06-30] MEDS: Pantoprazole 40 MG VIAL IVP (08:55)
[2021-06-30] MEDS: Docusate Sodium 100 MG CAP PO ×2 (09:17→20:35)
[2021-06-30] MEDS: Milk of Magnesia 30 ML CUP PO (09:17)
--- NOTE | 2021-06-30 10:15 | NUR.NOTE ---
Nursing Note: At approximately 1010 on 06/30/21, this RN answered a call from the pt.'s , Esteban Angulo (on HIPAA). Pt.'s updated regarding pt.'s mentation, VS, pain level, head to toe assessment, plan of care, etc. Pt.'s asked how pt. did with their breakfast. RN informed the pt.'s that the pt. had eaten all of their breakfast and had tolerated it well. Pt.'s stated, Well good. That tells me a lot about how she's doing. RN will reassess as necessary.
[2021-06-30 10:25] LABS: Iron 20 ug/dL (50-170); Total Iron Binding Capacity 147 ug/dL (250-450); Transferrin Sat 14 % (15-50)
[2021-06-30 11:00] LABS: Ferritin > 2000 ng/mL (8-252); Folate 6.6 ng/mL (8.6-20.0)
--- NOTE | 2021-06-30 11:08 | PT.INTREAT ---
Date of service: 06/30/21 Time of Service: 09:32 PT Notes Visit Reasons: UTI, pneumonia, ambulatory dysfunction Inpatient Physical Therapy Treatment Note [facility] Date: 06/30/2021 PRECAUTIONS: Fall SUBJECTIVE: Peg reports that she is feeling better today. She states that she is forgetful and has a difficult time remembering directions, which she reports is her baseline. OBJECTIVE: PAIN: No c/o pain BED MOBILITY/TRANSFERS Rolling L/R: SBA Supine-sit: SBA with HOB at 40 degrees Sit-stand: SBA with STEDY in a.m.; SBA in p.m. Stand-sit: CGA with STEDY in a.m.; SBA in p.m. Bed-Chair: STEDY Chair-bed: CGA with FWW GAIT Assistive Device: FWW Weight bearing: Full Assist: CGA Distance: 5' + ~10' Deviation: Forward flexed trunk THEREX: Patient was instructed in several seated LE strengthening exercises, as per flow sheet. ASSESSMENT: Patient tolerated session well, although with c/o increased fatigue with all activity. She was able to tolerate gait training with FWW today, although for limited distance. PLAN: Continue with gait and transfer training, as well as global strengthening for improved mobility and activity tolerance. TREATMENT CODE/TIME: Session 1: 26 minutes; 45418 x2 (09:32) Session 2: 32 minutes; 55112 x2 (13:12)
[2021-06-30] MEDS: levoFLOXacin 750 MG/150 ML BAG 100 MG IVPB (11:42)
--- NOTE | 2021-06-30 15:25 | W.PM.PROGNOT ---
Date of Service Date of service: 06/30/21 Time of Service: 15:25 Assessment and Plan Assessment and plan (1) Sepsis: Status: Acute Assessment and plan: With GNR bacteremia, Due to Klebisella pneumonia UTI, POA. I suspect that the blood cultures will grow the same organism. Clinically much better. Continue empiric levofloxacin (day 3). Await blood culture results; also repeat blood cultures are pending. We need to remember that the patient is s/p TKR and might have to consider infected prosthesis. (2) Acute respiratory failure with hypoxia: Status: Resolved Assessment and plan: As above. PE ruled out with a negative CTA. No evidence of PNA, but the story is c/w aspiration pneumonitis. O2 requirement resolved with 1 dose of prednisone. Monitor. (3) Aspiration pneumonitis: Status: Acute Assessment and plan: As above (4) UTI (urinary tract infection): Status: Acute Assessment and plan: As above (5) Elevated troponin: Status: Acute Assessment and plan: due to demand ischemia associated with her sepsis. LVEF is 56% on echo today and there are no wall motion abnormalities. No further ischemic workup at this time. D/c tele. (6) Ambulatory dysfunction: Status: Acute Assessment and plan: In setting of sepsis and chronic R knee pain. As above PT. Consider infected knee prosthesis (7) Dehydration: Status: Resolved Assessment and plan: As above (8) Hypomagnesemia: Status: Resolved Assessment and plan: recheck in am (9) Hyponatremia: Status: Acute Assessment and plan: The patient is now euvolemic, but drinking a lot of free water. Citalopram d/c'ed. Also consider SIADH. Monitor Na. (10) Obstructive sleep apnea: Status: Chronic Assessment and plan: Continue Home CPAP (11) DVT prophylaxis: Status: Acute Assessment and plan: Sc lovenox (12) Discharge planning issues: Status: Acute Assessment and plan: Full code as per palliative care consult PT consulted Subjective Subjective Interval history since last seen: Ms Angulo states she is feeling better today. Denies dizziness/feeling like she is falling today. Denies chest pain, shortness of breath, nausea, abdominal pain. Ate and worked with PT. She is now on room air. Overall much better. Exam Narrative Exam Narrative: General: Pleasant anxious elderly obese female, looks significantly better than yesterday. No dyspnea/tachypnea while laying flat on room air. A&Ox2. HEENT: EOMI, MMM Cardiovascular: RRR, no m/r/g Lungs: CTAB/diminished breath sounds. Gastrointestinal: soft, obese, nontender Extremities: no edema/clubbing/cyanosis BLE's Objective Last Vital Signs Temp 36.4 C L 06/30/21 11:04 Pulse 87 06/30/21 11:04 Resp 18 06/30/21 11:04 BP 100/69 06/30/21 11:04 Pulse Ox 94 06/30/21 11:04 Laboratory Results - last 24 hr 06/28/21 06/30/21 06/30/21 12:40 06:50 06:50 WBC 20.14 H D RBC 2.19 L Hgb 7.4 L Hct 22.3 L MCV 101.8 H MCH 33.8 H MCHC 33.2 RDW 16.3 H Plt Count 141 MPV 10.1 Immature Gran % See Differential Neutrophils % 79.0 Band Neutrophils % 9 Lymphocytes % 2.0 Monocytes % 5.0 Eosinophils % 0.0 Basophils % 0.0 Metamyelocytes % 4 Myelocytes % 1 Nucleated RBC % 0 Absolute Neutrophils 17.72 H Absolute Lymphocytes 0.40 L Absolute Monocytes 1.01 H Absolute Eosinophils 0.00 Absolute Basophils 0.00 RBC Morphology See Below Polychromasia Present Anisocytosis 1+ Sodium 134 L Potassium 4.4 D Chloride 99 Carbon Dioxide 26.2 Anion Gap 8.8 BUN 18 Creatinine 0.9 Estimated GFR/1.73 m2 >= 60.00 Glucose 209 H Calcium 8.8 Magnesium 2.0 Iron 20 L TIBC 147 L Transferrin % Sat 14 L Ferritin > 2000 H Folate 6.6 L
--- NOTE | 2021-06-30 15:35 | CHAPLAIN ---
Leda was resting in bed when I visited. Her , Esteban, and their daughter were with Leda. Leda is a member of the [employer] [facility]. There is a new health and safety director there, but she has not been well or in uatsdin according to Esteban. Leda asked if I could get a hold of Rev. Alan Carranza, the former tearoom host there. He is retired, and now working at the [facility]. Leda said she is not sure if Rev. Carranza knows she is here, but she would like him to know. Esteban tried calling Rev. Carranza's home phone, but the number didn't work. I found that I don't have any numbers for Rev. Carranza, other than the [facility] number. Both Leda and Esteban attended the [employer]. Esteban said he has song in [employer] choirs for 70 years. Leda pointed out the hat she was wearing, that her daughter. Leda has lost her hair and so likes wearing the hat. I let them know administrative underwriter is available 14/02 and I will continue to visit.
[2021-06-30] MEDS: ACETAMINOPHEN 1,000 MG/100 ML BTL 400 MG IVPB (15:36)
--- NOTE | 2021-06-30 17:39 | PDOC.CMPRO ---
- If Service Date Differs Date of service: 06/30/21 Time of Service: 17:39 Care Management Progress Note S/O: Leda was sitting up in her chair when CM met with her. She reported that she was told that she was confused yesterday, but she feels more clear today. She asked CM to call her daughter to check in because she was worried that she hadn't visited yet. CM called while in the room and talked to Leda's , Esteban, who was preparing to visit soon. Per report, she is clinically improving. She is on room air and antibiotics, awaiting blood culture results. CM will continue to follow. A: Janett is an 80 year old female admitted to [facility] on 06/28/21 with UTI, Pneumonia, ambulatory dysfunction. P: Anticipate Janett will return home when medically cleared. She may benefit from new services for her transition home. Her will drive her home via private vehicle when ready. She will follow up with her PCP and discharge plan of care. CM will continue to follow.
[2021-06-30] MEDS: Acetaminophen 500 MG TAB PO (20:35)
[2021-07-01 04:26] VITALS: BP 136/78; PULSE 92; RESP 17; TEMP 36.5; O2SAT 96
[2021-07-01] MEDS: Levothyroxine 25 MCG TAB PO (05:34)
[2021-07-01 07:02] LABS: HCT 24.2 % (36.0-46.0); HGB 7.9 g/dL (11.2-15.7); MCH 33.9 pg (27.0-33.0); MCHC 32.6 % (32.0-36.0); MCV 103.9 fL (80-95); MPV 9.6 fL (8.0-11.0); Nucleated RBC 0 %; Platelet Count 157 10^3/uL (130-400); RBC 2.33 10^6/uL (3.93-5.22); RDW 16.4 % (11.7-14.6); RDW-SD 60.8 fL; WBC 16.62 10^3/uL (4.4-10.8)
[2021-07-01 07:14] LABS: ALT 26 U/L (14-59); AST 23 U/L (15-37); Albumin 2.3 g/dL (3.4-5.0); Alkaline Phosphatase 149 U/L (46-116); Anion Gap 4.1 mmol/L (3-11); BUN 19 mg/dL (7-18); Bilirubin, Direct 0.2 mg/dL (0.0-0.2); Bilirubin, Total 0.4 mg/dL (0.2-1.0); C-Reactive Protein 9.07 mg/dL (0.0-0.3); CO2 30.9 mmol/L (21.0-32.0); CREATININE 1.1 mg/dL (0.55-1.02); Calcium 8.6 mg/dL (8.5-10.1); Chloride 100 mmol/L (98-107); Estimated GFR 47.79 (mL/min/1.73m2); Glucose 154 mg/dL (74-106); Magnesium 1.8 mg/dL (1.8-2.4); Potassium 4.2 mmol/L (3.5-5.1); Sodium 135 mmol/L (136-145); Total Protein 5.7 g/dL (6.4-8.2)
[2021-07-01] MEDS: Mirabegron 50 MG TABCR PO (07:34)
[2021-07-01] MEDS: Cholecalciferol (Vitamin D3) 1,000 UNIT TAB 5000 UNITS PO (07:34)
[2021-07-01] MEDS: Folic Acid 1 MG TAB PO (07:34)
[2021-07-01] MEDS: Insulin Aspart 300 UNITS/3 ML PEN SC ×4 (07:35→21:40)
[2021-07-01 07:40] LABS: Procalcitonin 3.3 ng/mL
[2021-07-01 07:54] LABS: Absolute Monocyte Count 1.83 10^3/uL (0.1-0.8); Absolute Neutrophil Count 14.79 10^3/uL (1.2-6.7); Bands % 8; Diff Comment Manual Differential
[2021-07-01 07:55] LABS: Anisocytosis 1+; Macrocytosis 1+
[2021-07-01 08:35] VITALS: BP 135/73; PULSE 85; RESP 16; TEMP 36.3; O2SAT 95
[2021-07-01] MEDS: Normal Saline Flush 10 ML SYR IVP (08:52)
[2021-07-01] MEDS: Pantoprazole 40 MG VIAL IVP (08:52)
--- NOTE | 2021-07-01 11:31 | PDOC.CMPRO ---
- If Service Date Differs Date of service: 07/01/21 Time of Service: 11:31 Care Management Progress Note S/O: Peg was lying in bed when CM met with her. Her , Esteban, was in the room. CM reviewed services available with them, and they are agreeable to HH at this time. Per report, Peg is clinically improving. She may be ready for discharge in the next few days, with orders for new HH. Peg stated that she was uncomfortable during the conversation, and asked for her RN to check in on her. CM informed the RN of her request. CM will continue to follow. A: Janett is an 80 year old female admitted to [facility] on 06/28/21 with UTI, Pneumonia, ambulatory dysfunction. P: Anticipate Janett will return home when medically cleared. She may benefit from new HH services for her transition home. Her will drive her home via private vehicle when ready. She will follow up with her PCP and discharge plan of care. CM will continue to follow.
[2021-07-01 11:50] VITALS: BP 119/78; PULSE 97; RESP 18; TEMP 36.8; O2SAT 98
--- NOTE | 2021-07-01 14:04 | W.PM.PROGNOT ---
Date of Service Date of service: 07/01/21 Time of Service: 16:04 Assessment and Plan Assessment and plan (1) Sepsis: Status: Acute Assessment and plan: Due to Klebisella pneumonia UTI, POA, with bacteremia. Clinically improving. Continue empiric levofloxacin (day 2 since 1st negative blood culture, day 4 overall). Repeat blood cultures are negative. If improvement stalls, then, the patient does have knee prosthesis that could have gotten infected. No evidence thereof at this time. (2) Acute respiratory failure with hypoxia: Status: Resolved Assessment and plan: As above. PE ruled out with a negative CTA. No evidence of PNA, but the story is c/w aspiration pneumonitis. O2 requirement resolved with 1 dose of prednisone. Monitor. (3) Aspiration pneumonitis: Status: Acute Assessment and plan: As above (4) UTI (urinary tract infection): Status: Acute Assessment and plan: As above (5) Elevated troponin: Status: Acute Assessment and plan: due to demand ischemia associated with her sepsis. LVEF is 56% on echo today and there are no wall motion abnormalities. No further ischemic workup at this time. Off tele. (6) Ambulatory dysfunction: Status: Acute Assessment and plan: In setting of sepsis and chronic R knee pain. As above Doing well with PT. (7) Dehydration: Status: Resolved Assessment and plan: As above (8) Hypomagnesemia: Status: Resolved Assessment and plan: recheck in am (9) Hyponatremia: Status: Acute Assessment and plan: The patient is now euvolemic, but drinking a lot of free water. Citalopram d/c'ed. Also consider SIADH. Monitor Na. (10) Obstructive sleep apnea: Status: Chronic Assessment and plan: Continue Home CPAP (11) DVT prophylaxis: Status: Acute Assessment and plan: Sc lovenox (12) Discharge planning issues: Status: Acute Assessment and plan: Full code as per palliative care consult PT consulted Probably disposition home in the next 48 hrs with home health services and a new rx for a walker. Subjective Subjective Interval history since last seen: Ms Angulo states she is feeling better today. She is progressing well with PT and should be able to go home with home health services but with a walker rather than a cane. Denies dizziness, chest pain, shortness of breath, nausea. Ate good lunch. Exam Narrative Exam Narrative: General: Pleasant anxious elderly obese female, looks better, sitting in a chair, wearing a crocheted beanie. No dyspnea/tachypnea. A&Ox2. HEENT: EOMI, MMM Cardiovascular: RRR, no m/r/g Lungs: CTAB Gastrointestinal: soft, obese, nontender Extremities: no edema/clubbing/cyanosis BLE's Objective Last Vital Signs Temp 36.8 C 07/01/21 11:50 Pulse 97 H 07/01/21 11:50 Resp 18 07/01/21 11:50 BP 119/78 07/01/21 11:50 Pulse Ox 98 07/01/21 11:50 Laboratory Results - last 24 hr 07/01/21 07/01/21 07/01/21 06:20 06:20 06:20 WBC 16.62 H RBC 2.33 L Hgb 7.9 L Hct 24.2 L MCV 103.9 H MCH 33.9 H MCHC 32.6 RDW 16.4 H Plt Count 157 MPV 9.6 Immature Gran % 0.0 Neutrophils % 81.0 Band Neutrophils % 8 Lymphocytes % 0.0 Monocytes % 11.0 Eosinophils % 0.0 Basophils % 0.0 Nucleated RBC % 0 Absolute Neutrophils 14.79 H Absolute Lymphocytes 0.00 L Absolute Monocytes 1.83 H Absolute Eosinophils 0.00 Absolute Basophils 0.00 RBC Morphology See Below Anisocytosis 1+ Macrocytosis 1+ Sodium 135 L Potassium 4.2 Chloride 100 Carbon Dioxide 30.9 Anion Gap 4.1 BUN 19 H Creatinine 1.1 H Estimated GFR/1.73 m2 47.79 Glucose 154 H Calcium 8.6 Magnesium 1.8 Total Bilirubin 0.4 Conjugated Bilirubin 0.2 AST 23 ALT 26 Alkaline Phosphatase 149 H C-Reactive Protein 9.07 H Total Protein 5.7 L Albumin 2.3 L Procalcitonin 3.3
--- NOTE | 2021-07-01 15:04 | PT.INTREAT ---
Date of service: 07/01/21 Time of Service: 11:35 PT Notes Visit Reasons: UTI, pneumonia, ambulatory dysfunction Inpatient Physical Therapy Treatment Note [facility] Date: 07/01/2021 PRECAUTIONS: Fall SUBJECTIVE: Peg states that she is feeling very tired and that she cannot believe how much she slept this morning after breakfast. She is pleasant and agreeable to participating in PT. OBJECTIVE: PAIN: No c/o pain BED MOBILITY/TRANSFERS Rolling L/R: I Supine-sit: CGA with HOB at 40 degrees Sit-supine: S with HOB flat Sit-stand: S Stand-sit: S Bed-Chair: SBA in a.m. S in p.m. Chair-bed: SBA in a.m.; S in p.m. GAIT Assistive Device: FWW Weight bearing: Full Assist: SBA in a.m. S in p.m. Distance: 15' + 5' x2 in a.m.; 20' in p.m. Deviation: Increased fatigue THEREX: Patient was instructed in several UE and LE strengthening exercises, as per flow sheet. TOILETING: Patient toileted with assist due to incontinence ASSESSMENT: Patient tolerated session with c/o increased fatigue with all activity. She was able to tolerate a progression in gait distance with FWW support and supervision, although continues to tolerate only limited distances. PLAN: Continue with gait and transfer training, as well as global strengthening for improved mobility and activity tolerance. Recommending home with PT follow up with use of FWW at this time. TREATMENT CODE/TIME: Session 1: 25 minutes; 04490 x2 (11:35) Session 2: 17 minutes; [id number] (12:40)
--- NOTE | 2021-07-01 16:15 | CHAPLAIN ---
Leda was resting in bed when I visited. The lights were off in the room. I let eLda know that I was not able to track down a phone number for RevAbbi Carranza, the former highway inspector at the [facility], where Leda is a member. Leda's said yesterday that he has a home phone number for Rev. Carranza. Leda was quiet and wanting to rest. I didn't stay long, but will visit again tomorrow.
[2021-07-01 19:58] VITALS: BP 120/77; PULSE 93; RESP 19; TEMP 36.9; O2SAT 95
[2021-07-01 23:15] VITALS: BP 126/80; PULSE 94; RESP 18; TEMP 36.6; O2SAT 94
[2021-07-02 03:38] VITALS: BP 127/86; PULSE 92; RESP 18; TEMP 36.6; O2SAT 94
[2021-07-02] MEDS: Levothyroxine 25 MCG TAB PO (05:33)
[2021-07-02 07:25] LABS: Abs Immature Grans 0.69 10^3/uL (0.0-0.06); Absolute Basophil Count 0.07 10^3/uL (0.0-0.2); Absolute Eosinophil Count 0.01 10^3/uL (0.0-0.7); Absolute Lymphocyte Count 0.55 10^3/uL (1.2-3.4); Absolute Monocyte Count 0.79 10^3/uL (0.1-0.8); Absolute Neutrophil Count 9.15 10^3/uL (1.2-6.7); Basophils % 0.6; Eosinophils % 0.1; HCT 25.4 % (36.0-46.0); HGB 8.2 g/dL (11.2-15.7); Immature Grans % 6.1; Lymphocytes % 4.9; MCH 33.5 pg (27.0-33.0); MCHC 32.3 % (32.0-36.0); MCV 103.7 fL (80-95); MPV 9.6 fL (8.0-11.0); Neutrophils % 81.3; Nucleated RBC 0 %; Platelet Count 176 10^3/uL (130-400); RBC 2.45 10^6/uL (3.93-5.22); RDW 16.2 % (11.7-14.6); RDW-SD 61.3 fL; WBC 11.26 10^3/uL (4.4-10.8)
[2021-07-02 07:45] LABS: Anion Gap 6.1 mmol/L (3-11); BUN 19 mg/dL (7-18); C-Reactive Protein 7.32 mg/dL (0.0-0.3); CO2 31.9 mmol/L (21.0-32.0); CREATININE 0.9 mg/dL (0.55-1.02); Calcium 8.8 mg/dL (8.5-10.1); Chloride 99 mmol/L (98-107); Glucose 151 mg/dL (74-106); Magnesium 1.7 mg/dL (1.8-2.4); Potassium 4.1 mmol/L (3.5-5.1); Sodium 137 mmol/L (136-145)
[2021-07-02 08:27] VITALS: BP 106/74; PULSE 89; RESP 20; TEMP 36.7; O2SAT 96
[2021-07-02] MEDS: Folic Acid 1 MG TAB PO (08:28)
[2021-07-02] MEDS: Mirabegron 50 MG TABCR PO (08:28)
[2021-07-02] MEDS: Cholecalciferol (Vitamin D3) 1,000 UNIT TAB 5000 UNITS PO (08:28)
[2021-07-02] MEDS: Insulin Aspart 300 UNITS/3 ML PEN SC ×2 (08:29→12:12)
[2021-07-02] MEDS: MAGNESIUM SULFATE 2 GM/50 ML BAG IVPB (08:35)
[2021-07-02] MEDS: Pantoprazole 40 MG VIAL IVP (08:36)
[2021-07-02] MEDS: Normal Saline Flush 10 ML SYR IVP (08:36)
[2021-07-02 08:52] LABS: Anisocytosis 1+; Diff Comment Diff Reviewed; Macrocytosis 1+; Polychromasia Present
[2021-07-02] MEDS: Acetaminophen 500 MG TAB PO (10:08)
--- NOTE | 2021-07-02 10:39 | PDOC.HHF2F_ITS ---
Home Health Certification Home Health Certification: 1. Encounter Date and Reason I certify that Janett Angulo was seen by Debo Taylor on 07/02/21 and that I had a [id number] encounter with this patient that meets the physician face to face encounter requirements. 2. Clinical Findings Supporting Skilled Need and Homebound Status I certify that home health services are medically necessary, include either intermittent intermediate and/or physical/speech therapy, and that this juliann ent is homebound in that absences from the home require considerable and taxing effort and are infrequent or of short duration, or are attributable to the need to receive medical care. [X] (a) Attached documentation from encounter provides clinical findings supporting skilled need and homebound status (including what assistance patient requires to leave the home). The encounter with the patient was in whole, or in part, for the following medical condition, which is the primary reason for home health care: UTI, pneumonia, ambulatory dysfunction Usp: Recovering from sepsis/UTI Physical Therapy: eval and treat Occupational Therapy: eval and treat DRILLER'S OFFSIDER: evaluate the need for resources in the community Homebound: unable to leave home without assistance 3. Certification and Authentication I certify that I composed the above information based on my clinical judgement relating to this patient's medical condition and, if applicable, clinical findings communicated to me by the NPP or inpatient physician who performed the Home Health Referral. All further orders will be obtained through ___Dr Ramos (Community Based Physician - PCP)
--- NOTE | 2021-07-02 10:41 | DSE_ITS ---
Date of service: 07/02/21 Time of Service: 10:41 DS: Diagnosis Discharge Diagnosis (1) Sepsis: Status: Acute (2) Acute respiratory failure with hypoxia: Status: Resolved (3) Aspiration pneumonitis: Status: Acute (4) UTI (urinary tract infection): Status: Acute (5) Elevated troponin: Status: Acute (6) Ambulatory dysfunction: Status: Acute (7) Dehydration: Status: Resolved (8) Hypomagnesemia: Status: Resolved (9) Hyponatremia: Status: Acute (10) Folate deficiency anemia: Status: Acute (11) Obstructive sleep apnea: Status: Chronic (12) COVID-19 ruled out by laboratory testing: Status: Ruled-out Discharge Plan Disposition Patient Disposition: HOME W/HOME HEALTH SERVICE Condition: Improving Discharge Details Reason For Visit: UTI, pneumonia, ambulatory dysfunction Admit Date/Time: 06/28/21 13:29 Admit Provider: Debo Taylor Attending Provider: Debo Taylor Primary Care Provider: King Ramos [facility] Hospital Course: Ms Angulo is an 80 year old female with PMHx of uterine ca on chemotherapy, as well as NIDDM2, HTN, FAUSTO on CPAP, who was admitted to [facility] Hospitalist service on 06/28/21 with sepsis due to Klebsiella UTI with bacteremia as well as toxic metabolic encephalopathy and ambulatory dysfunction. The patient was initially suspected to have a pneumonia, which was ruled out with a CT on admission, but did have an aspiration event as a result of vomiting during an episode of rigors, which resulted in transient hypoxic respiratory failure with requirement for 6L of O2, which resolved by the following day. The patient did not have evidence of aspiration pneumonia or a PE on CTA of the chest performed after the aspiration event. The patient grew Klebsiella pneumonia on her original blood cultures as well as in her urine, which was sensitive to levofloxacin, which she has been receiving since the beginning of her hospitalization. Her repeat blood cultures were negative (06/30/21). 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 The patient's mental status has returned to her baseline. Her ability to ambulate improved steadily to the point that we feel that she can be discharged home today with a new prescription for a walker and a referral for home health nursing, PT, OT, and RESIDENTIAL YOUTH COUNSELOR. Her last dose of levofloxacin should be on 07/08/21, which will give her a 10 day course of levofloxacin from the first negative blood culture. She should follow up with her PCP in 1-2 weeks. Care for patient as well as completion of her discharge summary on day of discharge took 45 minutes. Home Meds and New Rx's Prescriptions: New folic acid 1 mg Tablet 1 mg PO DAILY Qty: 30 RF: 0 levofloxacin 750 mg tablet 750 mg PO Q48H Qty: 3 RF: 0 Continued lisinopril 20 mg tablet 10 mg PO DAILY RF: 0 acetaminophen [Tylenol] 325 mg tablet 325 mg PO QID PRN (Reason: pain) RF: 0 ibuprofen 600 mg tablet 600 mg PO TID PRNRF: 0 cholecalciferol (vitamin D3) [Vitamin D3] 2,000 UNIT capsule 5,000 unit PO DAILY RF: 0 atorvastatin 10 MG tablet 10 mg PO DAILY RF: 0 levothyroxine 50 MCG tablet 25 mcg PO DAILY RF: 0 metformin 1,000 MG tablet 1,000 mg PO DAILY RF: 0 Myrbetriq 50 mg tablet extended release 24 hr 50 mg PO DAILY Qty: 90 RF: 3 Discontinued citalopram 20 mg tablet 20 mg PO DAILY Qty: 30 RF: 0 Discharge Instructions Instructions: Levofloxacin (By mouth), Urinary Tract Infection in Women (DC), Sepsis (DC) Additional Instructions: Finish antibiotics as prescribed. Ambulate with a walker. Return to the hospital with any fever, bleeding, chest pain, shortness of breath. Follow up with your PCP in 1-2 weeks. Care Plan Goals: Home with home health services Stand Alone Forms: Nursing Discharge Form Referrals: King Ramos MD [Primary Care Provider] - 07/09/21 11:30 am Activity:: Activity as Tolerated Equipment/Supplies:: Walker Diet:: Carb Counting Discharge Orders Discharge Orders: Discharge Order (Routine); Ordered 07/02/21 Ordered By: Debo Taylor DS: Summary Time Spent with Patient providing and/or coordinating discharge services: Greater than 30 minutes Status at Discharge Functional status at discharge: uses cane/walker Overall status at discharge: patient is progressing back to baseline Mental Status: mental status grossly normal Speech and Movement: speech and movement normal Mood: congruent mood Affect: normal affect Exam Narrative Exam Narrative: General: Pleasant anxious elderly obese female, looks better, sitting in a chair, wearing a crocheted beanie. No dyspnea/tachypnea. A&Ox2. HEENT: EOMI, MMM Cardiovascular: RRR, no m/r/g Lungs: CTAB Gastrointestinal: soft, obese, nontender Extremities: no edema/clubbing/cyanosis BLE's Psych Mental Status: mental status grossly normal Speech and Movement: speech and movement normal Mood: congruent mood Affect: normal affect DS: Data Vitals/I&O Vitals and I&O: Vital Signs Temperature 36.7 C 07/02/21 08:27 Temperature Source Tympanic 07/02/21 08:27 Pulse 89 07/02/21 08:27 Pulse Rhythm Regular 07/02/21 09:37 Pulse 96 H 06/28/21 13:21 Respiratory Rate 20 07/02/21 08:27 Respiratory Effort Non-Labored 07/02/21 09:37 Respiratory Depth Normal 07/02/21 09:37 Respiratory Pattern Normal 07/02/21 09:37 Blood Pressure 106/74 07/02/21 08:27 Blood Pressure Mean 57 06/28/21 13:21 Blood Pressure Position Supine 06/28/21 09:23 Pulse Oximetry 96 07/02/21 08:27 Oxygen Delivery Method Room Air 07/02/21 08:27 Oxygen Flow Rate 0 07/02/21 08:27 Fraction of Inspired Oxygen (FIO2) 21 07/02/21 09:11 Pain Level 7 07/02/21 10:08 Comment 06/30/21 12:03 Intake & Output 07/01/21 07/01/21 07/02/21 11:59 23:59 11:59 Intake Total 480 / 480 Output Total 200 / 200 Balance 480 / 480 -200 / -200 Weight 103.1 kg 103.3 kg Intake: Oral 480 / 480 Output: Urine 200 / 200 Other: Urine Color Yellow Yellow Urine Appearance Clear Comment diaper changed diaper changed complete bed changed Voiding Methods Diaper Diaper Bedside Commode Incontinent Incontinent Data Completed and Pending Completed studies during hospitalization [Text1]: CT head:No acute intracranial findings. If clinically indicated follow-up MRI with diffusion imaging can be performed. CXR: No acute pulmonary findings.Appropriate follow-up recommended CTA brain/neck; 1. Some plaque seen bilaterally at the carotid bifurcations but no tight stenosis. Amount of stenosis estimated at less than 50 percent bilaterally. 2. Both vertebral arteries are patent. Left vertebral artery originates as an independent vessel off the aortic arch. 3. Left A1 segment is not opacified. This may be developmental. Both anterior cerebral arteries are opacified; the left presumably via the anterior communicating artery. No acute intracranial findings. XR R knee: Intact arthroplasty. No fracture. CT chest w/o contrast: 1. No acute focal pulmonary findings and no pleural effusions. 2. No intrathoracic adenopathy evident this noninfused study. CTA chest w/ contrast : 1. Somewhat less than optimal study reasons given above.No confluent infiltrates. Small 3 millimeter noncalcified nodule noted in the lateral basal segment right lower lobe. 2. No central pulmonary emboli. More peripheral pulmonary arteries are difficult to assess accurately on this study. 3. No intrathoracic adenopathy. Echo: Left Ventricle : The left ventricle is normal size. The left ventricular systolic function is normal. The left ventricular ejection fraction is within the normal range. There is normal left ventricular wall thickness. There is normal LV segmental wall motion. The left ventricular diastolic function is normal. LVEF is 56%. Right Ventricle : The right ventricle is normal size. The right ventricular systolic function is normal. The RVSP is 28.8mmHg. Atria : The left atrium size is normal. The right atrium size is normal. Mitral Valve : Mild mitral annular calcification. Trace mitral regurgitation. No evidence of mitral valve stenosis. Great Vessels : The aortic root is normal in size. IVC is normal in size and collapses >50% with inspiration. Please see remainder of study for further details. Labs on day of discharge: Labs from last 24 hours 07/02/21 07/02/21 06:58 06:58 WBC 11.26 H D RBC 2.45 L Hgb 8.2 L Hct 25.4 L MCV 103.7 H MCH 33.5 H MCHC 32.3 RDW 16.2 H Plt Count 176 MPV 9.6 Immature Gran % 6.1 Neutrophils % 81.3 Lymphocytes % 4.9 Monocytes % 7.0 Eosinophils % 0.1 Basophils % 0.6 Nucleated RBC % 0 Absolute Neutrophils 9.15 H Absolute Lymphocytes 0.55 L Absolute Monocytes 0.79 Absolute Eosinophils 0.01 Absolute Basophils 0.07 RBC Morphology See Below Polychromasia Present Anisocytosis 1+ Macrocytosis 1+ Sodium 137 Potassium 4.1 Chloride 99 Carbon Dioxide 31.9 Anion Gap 6.1 BUN 19 H Creatinine 0.9 Estimated GFR/1.73 m2 >= 60.00 Glucose 151 H Calcium 8.8 Magnesium 1.7 L C-Reactive Protein 7.32 H Preliminary micro results at discharge 06/30/21 06:50 Blood Culture - Preliminary Blood NO GROWTH 48 HOURS 06/30/21 06:45 Blood Culture - Preliminary Blood NO GROWTH 48 HOURS 06/28/21 12:35 Blood Culture - Preliminary Blood NO GROWTH 72 HOURS 06/28/21 12:40 Blood Culture - Preliminary Blood Klebsiella pneumoniae PFS All Active Problems (Updated 07/02/21 @ 10:54 by Debo Taylor MD) Folate deficiency anemia (Acute) Aspiration pneumonitis (Acute) Palliative care patient (Acute) Elevated troponin (Acute) Discharge planning issues (Acute) DVT prophylaxis (Acute) Hyponatremia (Acute) Ambulatory dysfunction (Acute) UTI (urinary tract infection) (Acute) Sepsis (Acute) Obstructive sleep apnea (Chronic) Hypertension (Chronic) Abnormal vaginal bleeding (Acute) Thickened endometrium (Acute) Mild cognitive impairment (Acute) Urgency incontinence (Acute 11/05/16) Tinnitus (Acute 12/31/13) Sensorineural hearing loss, bilateral (Acute 12/31/13) Frequency of micturition (Acute 11/05/16) Active Problem List Elevated troponin (Acute) Discharge planning issues (Acute) DVT prophylaxis (Acute) Hyponatremia (Acute) Hypomagnesemia (Acute) Dehydration (Acute) Ambulatory dysfunction (Acute) Pneumonia (Acute) UTI (urinary tract infection) (Acute) Sepsis (Acute) Obstructive sleep apnea (Chronic) Hypertension (Chronic) Abnormal vaginal bleeding (Acute) Thickened endometrium (Acute) Mild cognitive impairment (Acute) Urgency incontinence (Acute 11/05/16) Tinnitus (Acute 12/31/13) Sensorineural hearing loss, bilateral (Acute 12/31/13) Frequency of micturition (Acute 11/05/16) Medical History Anxiety Depression Diabetes mellitus type 2 in obese Dry mouth Dysphagia Frequent falls Hypercholesteremia Hypothyroidism Irregular bowel habits Lordosis Low back pain Metabolic syndrome Neuropathy Onychomycosis Sensorineural hearing loss Urinary incontinence Vertigo Surgical History Hx of cholecystectomy Status post bilateral knee replacements Family History Brother Heart disease Dementia Depression Father Heart disease Dementia Depression Mother Dementia Depression Social History Smoking/Tobacco Use Status: Never Smoking risk assessment performed?: Yes Alcohol Intake: current Alcohol Intake frequency: holidays/special occasions only Drug use: Never Substance use type: does not use Household members: spouse Housing: house What is your relationship status?: Panel score (0-1 are the most socially isolated patients): 1 Seatbelt use: always Do you feel safe at home: Yes Do you feel safe in your relationship?: Yes
--- NOTE | 2021-07-02 11:24 | CHAPLAIN ---
Leda was up in the chair watching baking shows when I visited. She became a little teary talking about possibly going home. She very much misses her dogs, and being home. She asked for a drink of juice. Leda lives in [place] with her who is very supportive. Their daughter lives in [place], [place]. Leda and her are members of the [place] [employer].
[2021-07-02] MEDS: levoFLOXacin 750 MG/150 ML BAG 100 MG IVPB (11:26)
--- NOTE | 2021-07-02 14:49 | PT.INTREAT ---
Date of service: 07/02/21 Time of Service: 10:01 PT Notes Visit Reasons: UTI, pneumonia, ambulatory dysfunction Inpatient Physical Therapy Treatment Note [facility] Date: 07/02/2021 PRECAUTIONS: Fall SUBJECTIVE: Peg is pleasant and hopeful to go home today. She states that she feels she will be safe at home and feels that she is ready. She agrees to use the FWW at home. OBJECTIVE: PAIN: No c/o pain BED MOBILITY/TRANSFERS Sit-stand: S Stand-sit: S Bed-Chair: S Chair-bed: S GAIT Assistive Device: FWW Weight bearing: Full Assist: S Distance: 15' + 5' STAIRS: Up/down 3x4 and 2x6 using B rails and a step-to pattern with SBA TOILETING: Patient toileted with assist due to incontinence of urine. ASSESSMENT: Patient tolerated session with c/o increased fatigue with all activity. She was able to tolerate the addition of stair training with use of B rails and SBA. PLAN: Patient to discharge to home later today, per provider. Recommend follow up with PT and use of FWW at this time. TREATMENT CODE/TIME: 39 minutes; 88040 x3 (10:01)
--- NOTE | 2021-07-02 17:17 | PDOC.CMDIS ---
- If Service Date Differs Date of service: 07/02/21 Time of Service: 17:17 LACE Index Scoring Tool - Questions: Length of Stay (in days): 4 - 6 Acuity (Admit via E.D.?): Yes Comorbidities: Diabetes w/o Complication, Dementia E.D. Visits: 2 - Answers: Total Score: 14 Risk of Readmission: High Risk Care Management Discharge Reason for Hospitalization: UTI, Pneumonia, ambulatory dysfunction. Discharge Plan: Janett will return home with new home health services for RN,OT,PT and PRODUCTION SERVICE MANAGER. Her will drive her home via private vehicle and she will follow up with her PCP and discharge plan of care. Patient/Family Education Needs: Review discharge instructions and limitations, discussion of self care needs including ask me three. Services Needed at Discharge: Home Health Care Services
--- NOTE | 2021-07-13 14:51 | INDS_ITS ---
Date of service: 07/13/21 PT Notes Visit Reasons: UTI, pneumonia, ambulatory dysfunction Physical Therapy Inpatient Discharge Summary Date: 07/13/2021 Date of service: 06/29/2021 through 07/02/2021 This is a clinical summary of care provided for the duration of dates listed above. No charge was made in the completion of this documentation Referring Doctor: Debo Taylor MD PT Orders: PT CONSULT: Limited ability Precautions: Fall. Standard. Activity as tolerated. Patient Profile/Admitting Diagnosis: Patient is a an 80-year-old female who presented to the ED on 06/28/2021 due to generalized weakness, fall at home, and worsening balance. Patient is diagnosed with sepsis, urinary tract infection, pneumonia, elevated troponin, ambulatory dysfunction, dehydration, hypomagnesemia and hyponatremia. PMHX: Active Problem List Elevated troponin (Acute) Discharge planning issues (Acute) DVT prophylaxis (Acute) Hyponatremia (Acute) Hypomagnesemia (Acute) Dehydration (Acute) Ambulatory dysfunction (Acute) Pneumonia (Acute) UTI (urinary tract infection) (Acute) Sepsis (Acute) Obstructive sleep apnea (Chronic) Hypertension (Chronic) Abnormal vaginal bleeding (Acute) Thickened endometrium (Acute) Mild cognitive impairment (Acute) Urgency incontinence (Acute 11/05/16) Tinnitus (Acute 12/31/13) Sensorineural hearing loss, bilateral (Acute 12/31/13) Frequency of micturition (Acute 11/05/16) Medical History Anxiety Depression Diabetes mellitus type 2 in obese Dry mouth Dysphagia Frequent falls Hypercholesteremia Hypothyroidism Irregular bowel habits Lordosis Low back pain Metabolic syndrome Neuropathy Onychomycosis Sensorineural hearing loss Urinary incontinence Vertigo Surgical History Hx of cholecystectomy Status post bilateral knee replacements Social History/Home Situation: Patient is unreliable and appears to be confused but she states that she has a flight of stairs to the bedroom of their house. Initially said that at home she was a using a walker inside the house but then later on indicates that she holds onto furnitures to walk and that her helps her a lot with it. Equipment Owned/DME: FWW? Subjective: NT. See most recent SKULL CHOPPER notes. Objective: General Observation: NT. See most recent SKULL CHOPPER notes. Mental Status: NT. See most recent SKULL CHOPPER notes. Pain: NT. See most recent SKULL CHOPPER notes. Vital Signs: NT. See most recent SKULL CHOPPER notes. ROM: Right Upper Extremity: Shoulder Flexion WFL. Shoulder abduction WFL. Elbow flexion WFL. Wrist flexion WFL. Functional opening and closing of hand WFL. Left Upper Extremity: Shoulder Flexion WFL. Shoulder abduction WFL. Elbow flexion WFL. Wrist flexion NT due to IV splint in L UE. Functional opening and closing of hand WFL. Right Lower Extremity: Hip flexion WFL. Hip abduction WFL. Knee flexion WFL. Ankle dorsiflexion WFL. Ankle plantarflexion WFL. Left Lower Extremity: Hip flexion WFL. Hip abduction WFL. Knee flexion WFL. Ankle dorsiflexion WFL. Ankle plantarflexion WFL. Strength: Right Upper Extremity: Shoulder flexors 3/5. Shoulder abductors 3/5. Elbow flexors 3/5. Elbow extensors 3/5. Analyst Business Analysis strong. Left Upper Extremity: Shoulder flexors 3/5. Shoulder abductors 3/5. Elbow flexors NT due to IV splint in L UE. Elbow extensors NT due to IV splint in L UE. Analyst Business Analysis strong. Right Lower Extremity: Hip flexors 3+/5. Hip abductors 3+/5. Knee flexors 3+/5. Knee extensors 3+/5. Ankle dorsiflexors 3+/5. Ankle plantarflexors 3+/5. Left Lower Extremity: Hip flexors 3+/5. Hip abductors 3+/5. Knee flexors 3+/5. Knee extensors 3+/5. Ankle dorsiflexors 3+/5. Ankle plantarflexors 3+/5. Bed Mobility/Transfers: Supine to sit supervision Sit to stand supervision with front wheeled walker Stand to sit supervision with front wheeled walker Bed to reclining chair supervision with front wheeled walker Gait: Not safe to be tested at this time due to medical condition and confusion. Balance: Static Sitting: Normal Dynamic Sitting: Normal Static Standing: Fair Dynamic Standing: Fair Assessment: Patient demonstrates significant functional mobility improvement during this episode of care requiring only supervision assist for all short distance ambulation and standby assist for stair negotiation. Patient presents with clinical signs and symptoms consistent with current/admitting diagnoses that have resulted to mobility limitations, gait instability, generalized weakness, and overall ADL decline as demonstrated by the following impairment level findings: 1. Decreased strength to B UE/LE [] major muscle groups 2. Impaired sitting/standing balance 3. Impaired activity tolerance Impairments are contributing to the following functional limitations: 1. Inability to perform level surface ambulation without an AD 4. Increased completion time for mobility ADL performance 5. Increased risk for falls Goals: Goals X1 week 1. Supine-Sit minimal assist MET 2. Sit-Supine minimal assist MET 3. Sit-Stand minimal assist MET 4. Stand-Sit minimal assist with FWW MET 5. Bed-Chair minimal assist with FWW MET 6. Chair-Bed minimal assist with FWW MET 7. minimal assist for gait on level surface with use of FWW for at least 50 feet without report of pain nor dyspnea MET 8. Independent stair negotiation while holding onto B rails for at least 10 steps without report of pain nor dyspnea NOT MET 9. Fair static and dynamic standing balance/tolerance MET DISCHARGE RECOMMENDATIONS: [] Home with no services [] [] Home with services [specify] [] Home with outpatient PT [] [X] SNF for continued rehabilitation patient will benefit from nursing home facility placement for continued skilled physical therapy services in order to progress mobility level, strength, and balance in preparation for a safe discharge to home. [] [facility] [] [] SNF versus LTC based on ability to participate and progress [] TREATMENT CODE/TIME: ID Thank you for the opportunity to participate in the care of this patient. Hanna Borges PT, DPT, CLT [facility] [place], [place]
== END 2021-07-02 13:55 | disposition home health service (06) | DRG 871 ==
LOC: ER 09:29 → MS 14:19
PROVIDERS: Admitting Provider Internal Medicine; Emergency Provider Physician Assistant; PCP Internal Medicine; Visit Provider Internal Medicine
DX: A41.59 Other Gram-negative sepsis (principal); J69.0 Pneumonitis due to inhalation of food and vomit; J96.01 Acute respiratory failure with hypoxia; N39.0 Urinary tract infection, site not specified; I24.8 Other forms of acute ischemic heart disease; E87.1 Hypo-osmolality and hyponatremia; Z68.41 Body mass index [BMI] 40.0-44.9, adult; E83.42 Hypomagnesemia; E86.0 Dehydration; G47.33 Obstructive sleep apnea (adult) (pediatric); C55 Malignant neoplasm of uterus, part unspecified; Z79.899 Other long term (current) drug therapy; I10 Essential (primary) hypertension; E11.9 Type 2 diabetes mellitus without complications; H90.3 Sensorineural hearing loss, bilateral; G31.84 Mild cognitive impairment of uncertain or unknown etiology; E66.9 Obesity, unspecified; W19.XXXA Unspecified fall, initial encounter; R53.1 Weakness; R26.2 Difficulty in walking, not elsewhere classified; B96.1 Klebsiella pneumoniae [K. pneumoniae] as the cause of diseases classified elsewhere; D53.8 Other specified nutritional anemias; Z20.822 Contact with and (suspected) exposure to COVID-19
CPT/HCPCS: 36410; 36415; 36416; 51701; 70496; 70498; 71250; 71275; 73562; 80048; 80053; 80076; 82550; 82962; 84145; 87040; 87077; 87635; 93005; 93306; 96361; 96365; 96367; 96375; 97110; 97162; 97530; 99285; J1650; 70450; 71046; 81003; 81015; 82607; 82728; 82746; 83540; 83550; 83605; 83735; 83880; 84443; 84484; 85014; 85018; 85025; 85610; 86140; 87086; 87186; 93010; 94660; 99223; 99232; 99239; J0131; J1956; J2405; J3475; J3490; J7512; J7614

== ENCOUNTER 2021-07-14 12:50 | Outpatient (REF) | payer MEDICARE, BC, SELFPAY ==
[2021-07-14 15:32] LABS: Abs Immature Grans 0.04 10^3/uL (0.0-0.06); Absolute Basophil Count 0.05 10^3/uL (0.0-0.2); Absolute Eosinophil Count 0.14 10^3/uL (0.0-0.7); Absolute Lymphocyte Count 0.37 10^3/uL (1.2-3.4); Absolute Monocyte Count 0.69 10^3/uL (0.1-0.8); Absolute Neutrophil Count 5.48 10^3/uL (1.2-6.7); Basophils % 0.7; Eosinophils % 2.1; HCT 30.3 % (36.0-46.0); HGB 9.8 g/dL (11.2-15.7); Immature Grans % 0.6; Lymphocytes % 5.5; MCH 34.5 pg (27.0-33.0); MCHC 32.3 % (32.0-36.0); MCV 106.7 fL (80-95); MPV 9.6 fL (8.0-11.0); Monocytes % 10.2; Neutrophils % 80.9; Nucleated RBC 0 %; RBC 2.84 10^6/uL (3.93-5.22); RDW 17.5 % (11.7-14.6); RDW-SD 69.4 fL; WBC 6.77 10^3/uL (4.4-10.8)
[2021-07-14 15:33] LABS: Platelet Count 313 10^3/uL (130-400)
[2021-07-14 16:18] LABS: Iron 61 ug/dL (50-170); Total Iron Binding Capacity 212 ug/dL (250-450); Transferrin Sat 29 % (15-50)
[2021-07-14 16:33] LABS: ALT 68 U/L (14-59); AST 26 U/L (15-37); Albumin 3.1 g/dL (3.4-5.0); Alkaline Phosphatase 184 U/L (46-116); Anion Gap 7.2 mmol/L (3-11); BUN 15 mg/dL (7-18); Bilirubin, Total 0.6 mg/dL (0.2-1.0); CO2 28.8 mmol/L (21.0-32.0); Calcium 8.8 mg/dL (8.5-10.1); Chloride 101 mmol/L (98-107); Estimated GFR 53.35 (mL/min/1.73m2); Ferritin 834 ng/mL (8-252); Folate 17.7 ng/mL (8.6-20.0); Glucose 152 mg/dL (74-106); Magnesium 1.7 mg/dL (1.8-2.4); Potassium 4.4 mmol/L (3.5-5.1); Sodium 137 mmol/L (136-145); Total Protein 5.8 g/dL (6.4-8.2)
== END 2021-07-14 12:51 | disposition home or self-care (01) ==
LOC: NCHCN 12:50
PROVIDERS: PCP Internal Medicine; Visit Provider Nurse Practitioner Family
DX: D52.9 Folate deficiency anemia, unspecified (principal); D75.89 Other specified diseases of blood and blood-forming organs; R74.8 Abnormal levels of other serum enzymes; E88.81 Metabolic syndrome and other insulin resistance
CPT/HCPCS: 80053; 82728; 82746; 83540; 83550; 83735; 85025

== ENCOUNTER 2021-11-25 16:50 | Outpatient (REF) | payer MEDICARE, SELFPAY ==
[2021-11-25 21:45] LABS: Abs Immature Grans 0.04 10^3/uL (0.0-0.06); Absolute Basophil Count 0.04 10^3/uL (0.0-0.2); Absolute Eosinophil Count 0.49 10^3/uL (0.0-0.7); Absolute Monocyte Count 0.66 10^3/uL (0.1-0.8); Basophils % 0.5; HCT 37.6 % (36.0-46.0); HGB 12.4 g/dL (11.2-15.7); Immature Grans % 0.5; Lymphocytes % 6.2; MCH 32.8 pg (27.0-33.0); MCV 100 fL (80-95); MPV 9.7 fL (8.0-11.0); Monocytes % 8.1; Neutrophils % 78.7; Platelet Count 273 10^3/uL (130-400); RBC 3.78 10^6/uL (3.93-5.22); RDW 14.7 % (11.7-14.6); RDW-SD 53.7 fL; WBC 8.13 10^3/uL (4.4-10.8)
[2021-11-25 22:00] LABS: Iron 69 ug/dL (50-170); Total Iron Binding Capacity 255 ug/dL (250-450); Transferrin Sat 27 % (15-50)
[2021-11-25 22:31] LABS: Hemoglobin A1C 6.5 % (<5.7)
[2021-11-25 22:38] LABS: ALT 15 U/L (14-59); AST 14 U/L (15-37); Albumin 3.5 g/dL (3.4-5.0); Alkaline Phosphatase 157 U/L (46-116); Anion Gap 12.8 mmol/L (3-11); BUN 22 mg/dL (7-18); Bilirubin, Total 0.9 mg/dL (0.2-1.0); CO2 25.2 mmol/L (21.0-32.0); Chloride 100 mmol/L (98-107); Estimated GFR 53.21 (mL/min/1.73m2); Ferritin 308 ng/mL (8-252); Glucose 262 mg/dL (74-106); Magnesium 1.7 mg/dL (1.8-2.4); Potassium 4.3 mmol/L (3.5-5.1); Sodium 138 mmol/L (136-145); Total Protein 6.5 g/dL (6.4-8.2); Vitamin B12 196 pg/mL (193-986)
[2021-11-25 22:48] LABS: Folate > 20.0 ng/mL (8.6-20.0)
[2021-11-25 22:56] LABS: GGT 38 U/L (5-55)
== END 2021-11-25 16:51 | disposition home or self-care (01) ==
LOC: NCHCN 16:50
PROVIDERS: PCP Internal Medicine; Visit Provider Nurse Practitioner Family
DX: E11.9 Type 2 diabetes mellitus without complications (principal); E03.9 Hypothyroidism, unspecified; D75.89 Other specified diseases of blood and blood-forming organs; R79.89 Other specified abnormal findings of blood chemistry; E83.42 Hypomagnesemia; D52.9 Folate deficiency anemia, unspecified; R61 Generalized hyperhidrosis; Z79.899 Other long term (current) drug therapy
CPT/HCPCS: 80053; 82306; 82607; 82728; 82746; 82977; 83036; 83540; 83550; 83735; 85025

== ENCOUNTER → 2021-12-23 02:56 | Outpatient (CLI) | payer MEDICARE, SELFPAY ==
[2021-12-23] MEDS: Barium Sulfate 2% W/V-Creamy Vanilla Smoothie 450 ML BTL PO (14:42)
[2021-12-23] MEDS: Barium Sulfate 2% W/V-Berry Smoothie 450 ML BTL PO (14:43)
--- NOTE | 2021-12-23 15:30 | DI.CT_ITS ---
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 TECHNIQUE: Imaging Protocol: Axial computed tomography images with coronal and sagittal reformatted images were created and reviewed CONTRAST MATERIAL: Intravenous: none Oral: Yes. Oral contrast was administered for bowel opacification. COMPARISON: CT CT CHEST PE CTA from 06/29/2021 FINDINGS: CHEST: LUNGS: No new infiltrates nor pleural effusions. No ominous pulmonary nodules. Tiny granulomas note d in the posterior basal segment of the right lower lobe. Previously described small 3 millimeter no ncalcified nodule in the lateral right lung base is unchanged.. No new nodules in either lung. No n ew focal findings in the trachea and mainstem bronchi. MEDIASTINUM: No obvious hilar nor mediastinal adenopathy. Visualized thyroid unremarkable. CARDIAC: Heart size is normal. There is no pericardial effusion.Caliber of the thoracic aorta is wit hin normal limits. OSSEOUS: No significant osseous lesions.. ABDOMEN: There is no ascites. No evidence of omental cake. LIVER: There are no obvious focal hepatic lesions evident of this noninfused study. GALLBLADDER/BILIARY: The gallbladder surgically absent. CBD is not dilated. PANCREAS: No evidence of obvious pancreatic mass nor dilatation of the pancreatic duct. SPLEEN: Spleen is not enlarged. No obvious intrasplenic lesions. ADRENALS: There are no significant adrenal masses. KIDNEYS: No calculi nor hydronephrosis. No obvious solid renal masses. Small exophytic cyst seen off the lateral cortex of the left kidney midpole level. ABDOMINAL AORTA: Abdominal aorta is not enlarged. LYMPH NODES: There is no retroperitoneal nor para-aortic adenopathy. ABDOMINAL WALL/GI: No evidence of significant anterior abdominal wall nor inguinal hernia. No evidence of bowel obstruction. PELVIS: LYMPH NODES: There is no intrapelvic nor inguinal adenopathy. GI: No evidence of appendicitis.No evidence of sigmoid diverticulitis. URINARY BLADDER: Urinary bladder is distended, measuring 20 cm AP by 9 cm craniocaudal by 8.5 cm wide . There is right-sided diverticulum noted. REPRODUCTIVE: Uterus surgically absent. No ovarian masses evident. No iliac nor obturator adenopathy. OSSEOUS: No significant osseous lesions. Degenerative changes but no fractures evident. IMPRESSION: 1. Stable benign-appearing lung findings. No evidence of metastatic lung nodules, pleural effusions, nor intrathoracic adenopathy. 2. No ascites, omental cake, nor intra-abdominal/intrapelvic adenopathy. No mesenteric masses 3. Large fluid-filled structure in the pelvis measuring 20 x 9 x 8.5 cm has appearance of a distended urinary bladder. The uterus and ovaries appear to be surgically absent. RADIATION DOSE DELIVERED: 1,393.49mGy.cm Total DLP DATA REPOSITORY: All CT scans at this facility are submitted to the National Radiology Data Registry (NRDR) Dose Index Registry (DIR) with the [employer] (ACR). RADIATION OPTIMIZATION: All CT scans at this facility use at least one of these dose optimization te chniques: automated exposure control; mA and/or kV adjustment per patient size (includes targeted exa ms where dose is matched to clinical indication); or iterative reconstruction.
== END ==
PROVIDERS: PCP Internal Medicine; Visit Provider Internal Medicine
DX: C54.1 Malignant neoplasm of endometrium (principal); R91.1 Solitary pulmonary nodule; Z90.49 Acquired absence of other specified parts of digestive tract; N28.1 Cyst of kidney, acquired; Z90.710 Acquired absence of both cervix and uterus; N32.89 Other specified disorders of bladder
CPT/HCPCS: 71250; 74176

== ENCOUNTER 2021-12-23 04:10 | Outpatient (CLI) | payer MEDICARE, SELFPAY ==
[2021-12-23 14:55] LABS: Abs Immature Grans 0.04 10^3/uL (0.0-0.06); Absolute Basophil Count 0.05 10^3/uL (0.0-0.2); Absolute Eosinophil Count 0.53 10^3/uL (0.0-0.7); Absolute Lymphocyte Count 0.48 10^3/uL (1.2-3.4); Absolute Monocyte Count 0.81 10^3/uL (0.1-0.8); Absolute Neutrophil Count 6.78 10^3/uL (1.2-6.7); Basophils % 0.6; Eosinophils % 6.1; HCT 36.6 % (36.0-46.0); HGB 12.6 g/dL (11.2-15.7); Immature Grans % 0.5; Lymphocytes % 5.5; MCH 33.4 pg (27.0-33.0); MCHC 34.4 % (32.0-36.0); MCV 97 fL (80-95); MPV 9.7 fL (8.0-11.0); Monocytes % 9.3; Platelet Count 259 10^3/uL (130-400); RBC 3.77 10^6/uL (3.93-5.22); RDW-SD 53.5 fL; WBC 8.69 10^3/uL (4.4-10.8)
[2021-12-23 15:57] LABS: ALT 18 U/L (14-59); AST 10 U/L (15-37); Albumin 3.5 g/dL (3.4-5.0); Alkaline Phosphatase 158 U/L (46-116); Anion Gap 10.7 mmol/L (3-11); BUN 16 mg/dL (7-18); Bilirubin, Total 0.7 mg/dL (0.2-1.0); CO2 26.3 mmol/L (21.0-32.0); Chloride 102 mmol/L (98-107); Estimated GFR 53.21 (mL/min/1.73m2); Glucose 131 mg/dL (74-106); Potassium 4.3 mmol/L (3.5-5.1); Sodium 139 mmol/L (136-145); Total Protein 6.5 g/dL (6.4-8.2)
== END 2021-12-23 04:11 | disposition home or self-care (01) ==
LOC: LBO 04:12
PROVIDERS: PCP Internal Medicine; Visit Provider Internal Medicine
DX: C54.1 Malignant neoplasm of endometrium (principal)
CPT/HCPCS: 36415; 80053; 85025

== ENCOUNTER → 2022-02-15 13:06 | Outpatient (BNVA) | payer MEDICARE, SELFPAY | PROVIDERS: PCP Internal Medicine; Referring Provider Internal Medicine; Visit Provider Nurse Practitioner Adult Health | DX: G47.30 Sleep apnea, unspecified (principal); F32.A Depression, unspecified; G31.84 Mild cognitive impairment of uncertain or unknown etiology | CPT/HCPCS: 99213 ==

== ENCOUNTER → 2022-02-24 13:17 | Outpatient (BNVA) | payer MEDICARE, SELFPAY | PROVIDERS: PCP Internal Medicine; Referring Provider Internal Medicine; Visit Provider Nurse Practitioner Gerontology | DX: N39.41 Urge incontinence (principal); N32.81 Overactive bladder | CPT/HCPCS: 51798; 99214 ==

== ENCOUNTER 2022-05-14 15:39 | Outpatient (REF) | payer MEDICARE, SELFPAY ==
[2022-05-14 19:05] LABS: Abs Immature Grans 0.06 10^3/uL (0.0-0.06); Absolute Basophil Count 0.07 10^3/uL (0.0-0.2); Absolute Eosinophil Count 0.53 10^3/uL (0.0-0.7); Absolute Lymphocyte Count 0.77 10^3/uL (1.2-3.4); Absolute Monocyte Count 1.02 10^3/uL (0.1-0.8); Absolute Neutrophil Count 7.88 10^3/uL (1.2-6.7); Basophils % 0.7; Eosinophils % 5.1; HCT 40.1 % (36.0-46.0); HGB 13.8 g/dL (11.2-15.7); Immature Grans % 0.6; Lymphocytes % 7.5; MCH 33.9 pg (27.0-33.0); MCHC 34.4 % (32.0-36.0); MCV 99 fL (80-95); MPV 9.9 fL (8.0-11.0); Monocytes % 9.9; Neutrophils % 76.2; Platelet Count 337 10^3/uL (130-400); RBC 4.07 10^6/uL (3.93-5.22); RDW 14.8 % (11.7-14.6); RDW-SD 53.7 fL; WBC 10.33 10^3/uL (4.4-10.8)
[2022-05-14 19:17] LABS: Total Iron Binding Capacity 288 ug/dL (250-450)
[2022-05-14 19:47] LABS: Ferritin 296 ng/mL (8-252); Magnesium 1.5 mg/dL (1.8-2.4); TSH (W/Ref FT4) 2.33 uIU/mL (0.36-3.74); Vitamin B12 892 pg/mL (193-986)
[2022-05-14 19:48] LABS: Folate > 20.0 ng/mL (8.6-20.0)
[2022-05-14 20:30] LABS: Iron 69 ug/dL (50-170)
== END 2022-05-14 15:40 | disposition home or self-care (01) ==
LOC: NCHCN 15:39
PROVIDERS: PCP Internal Medicine; Visit Provider Nurse Practitioner Family
DX: D52.9 Folate deficiency anemia, unspecified (principal); R19.8 Other specified symptoms and signs involving the digestive system and abdomen; R32 Unspecified urinary incontinence; I10 Essential (primary) hypertension; E03.9 Hypothyroidism, unspecified; E83.42 Hypomagnesemia; E11.9 Type 2 diabetes mellitus without complications
CPT/HCPCS: 82607; 82728; 82746; 83540; 83550; 83735; 84443; 85025

== ENCOUNTER 2022-08-12 15:24 | Outpatient (REF) | payer MEDICARE, SELFPAY ==
[2022-08-12 21:00] LABS: Anion Gap 8.7 mmol/L (3-11); BUN 14 mg/dL (7-18); CO2 27.3 mmol/L (21.0-32.0); CREATININE 1.1 mg/dL (0.55-1.02); Calcium 9.3 mg/dL (8.5-10.1); Chloride 102 mmol/L (98-107); Estimated GFR 50.48 (mL/min/1.73m2); Glucose 279 mg/dL (74-106); Magnesium 1.7 mg/dL (1.8-2.4); Potassium 3.8 mmol/L (3.5-5.1); Sodium 138 mmol/L (136-145)
== END 2022-08-12 15:25 | disposition home or self-care (01) ==
LOC: NCHCN 15:24
PROVIDERS: PCP Internal Medicine; Visit Provider Nurse Practitioner Family
DX: I10 Essential (primary) hypertension (principal); E11.9 Type 2 diabetes mellitus without complications; E88.81 Metabolic syndrome and other insulin resistance; E83.42 Hypomagnesemia; D75.89 Other specified diseases of blood and blood-forming organs; F41.3 Other mixed anxiety disorders
CPT/HCPCS: 80048; 83735

== ENCOUNTER 2022-08-26 17:26 | Outpatient (REF) | payer MEDICARE, SELFPAY ==
[2022-08-26 20:44] LABS: Bilirubin Negative (Negative); Blood Negative (Negative); Clarity Sl Cloudy (Clear); Glucose 500 mg/dL (Negative); Ketones Trace mg/dL (Negative); Leukocyte Esterase Negative (Negative); Nitrite Negative (Negative); Specific Gravity >= 1.030 (1.005-1.025); pH 6.5 (5-8)
[2022-08-26 21:01] LABS: RBC 0-2 HPF (0-2); WBC Negative HPF (0-5)
[2022-08-26 21:02] LABS: Bacteria Few HPF (Negative); C & S Indicated? C&S Done As Ordered; Casts Negative LPF (Negative); Crystals Few Calcium Oxalate HPF (Negative); Epithelial Cells Few HPF (Negative); Mucus Negative (Negative)
== END 2022-08-26 17:27 | disposition home or self-care (01) ==
LOC: LBN 17:26
PROVIDERS: PCP Internal Medicine; Visit Provider Nurse Practitioner Family
DX: N39.0 Urinary tract infection, site not specified (principal)
CPT/HCPCS: 81003; 81015; 87086

== ENCOUNTER 2022-10-26 16:00 | Outpatient (CLI) | payer MEDICARE, SELFPAY ==
[2022-10-26 11:37] LABS: Glucose 182 mg/dL (74-106)
[2022-10-26 11:43] LABS: Hemoglobin A1C 6.9 % (<5.7)
== END 2022-10-26 16:01 | disposition home or self-care (01) ==
LOC: LBO 16:00
PROVIDERS: PCP Internal Medicine; Visit Provider Nurse Practitioner Family
DX: E11.9 Type 2 diabetes mellitus without complications (principal)
CPT/HCPCS: 36415; 82947; 83036

== ENCOUNTER → 2022-11-01 13:00 | Outpatient (BNVA) | payer MEDICARE, SELFPAY | PROVIDERS: PCP Internal Medicine; Referring Provider Internal Medicine; Visit Provider Nurse Practitioner Gerontology | DX: N32.81 Overactive bladder (principal) | CPT/HCPCS: 51798; 99213 ==

== ENCOUNTER 2022-11-16 03:00 | Outpatient (CLI) | payer MEDICARE, SELFPAY ==
[2022-11-16 09:34] LABS: Abs Immature Grans 0.06 10^3/uL (0.0-0.06); Absolute Basophil Count 0.04 10^3/uL (0.0-0.2); Absolute Eosinophil Count 0.42 10^3/uL (0.0-0.7); Absolute Lymphocyte Count 0.53 10^3/uL (1.2-3.4); Absolute Monocyte Count 0.56 10^3/uL (0.1-0.8); Absolute Neutrophil Count 6.26 10^3/uL (1.2-6.7); Basophils % 0.5; Eosinophils % 5.3; HCT 38.8 % (36.0-46.0); HGB 13.1 g/dL (11.2-15.7); Immature Grans % 0.8; Lymphocytes % 6.7; MCH 33.7 pg (27.0-33.0); MCHC 33.8 % (32.0-36.0); MCV 100 fL (80-95); MPV 9.2 fL (8.0-11.0); Monocytes % 7.1; Neutrophils % 79.6; Platelet Count 221 10^3/uL (130-400); RBC 3.89 10^6/uL (3.93-5.22); RDW 14.4 % (11.7-14.6); RDW-SD 52.1 fL; WBC 7.87 10^3/uL (4.4-10.8)
[2022-11-16 09:56] LABS: ALT 14 U/L (14-59); AST 13 U/L (15-37); Albumin 3.3 g/dL (3.4-5.0); Alkaline Phosphatase 137 U/L (46-116); Anion Gap 11.6 mmol/L (3-11); BUN 14 mg/dL (7-18); Bilirubin, Total 0.9 mg/dL (0.2-1.0); CO2 25.4 mmol/L (21.0-32.0); CREATININE 1.3 mg/dL (0.55-1.02); Calcium 9.1 mg/dL (8.5-10.1); Chloride 100 mmol/L (98-107); Estimated GFR 41.06 (mL/min/1.73m2); Glucose 245 mg/dL (74-106); Sodium 137 mmol/L (136-145); Total Protein 6.7 g/dL (6.4-8.2)
== END 2022-11-16 03:01 | disposition home or self-care (01) ==
LOC: LBO 03:00
PROVIDERS: PCP Internal Medicine; Visit Provider Internal Medicine
DX: C54.1 Malignant neoplasm of endometrium (principal)
CPT/HCPCS: 36415; 80053; 85025

== ENCOUNTER 2022-12-08 00:43 | Outpatient (CLI) | payer MEDICARE, SELFPAY ==
--- NOTE | 2022-12-08 12:55 | DI.RAD_ITS ---
Exam(s) XR SHOULDER RT COMPLETE 2+V EXAM: XR SHOULDER RT COMPLETE 2+V CLINICAL HISTORY: RT SHOULDER PAIN, M25.511. TECHNIQUE: 2D digital imaging was performed. Five views. COMPARISON: CR XR WRIST RT COMPLETE from 12/08/2022 FINDINGS: BONES: No acute fracture is present. No bony destructive lesion is seen. JOINTS: No dislocation present. Severe degenerative changes of the glenohumeral joint. Inferior spu rring. Mild spurring and inferior AC joint. SOFT TISSUE: Rounded calcifications adjacent to the humeral head could represent loose bodies. Feet tendon calcification is also seen. IMPRESSION: Severe degenerative changes of the glenohumeral joint. Joint space loose bodies. Mild calcific tend initis. DATA REPOSITORY: RADIATION DOSE DELIVERED:
--- NOTE | 2022-12-08 12:55 | DI.RAD_ITS ---
Exam(s) XR WRIST RT COMPLETE EXAM: XR WRIST RT COMPLETE CLINICAL HISTORY: RT WRIST PAIN, M25.531. TECHNIQUE: 2D digital imaging was performed. Three views. COMPARISON: CT CT CHEST/ABD/PEL WO from 12/23/2021 CR XR SHOULDER RT COMPLETE 2+V from 12/08/2022 FINDINGS: BONES: No acute fracture is present. No bony destructive lesion is seen. Bones appear osteopenic. JOINTS: The carpal bones are normally aligned. Severe degenerative changes at the 1st carpal metaca rpal joint. Little degenerative changes elsewhere. SOFT TISSUE: Vascular calcifications. IMPRESSION: Severe degenerative changes 1st carpal metacarpal joint. DATA REPOSITORY: RADIATION DOSE DELIVERED:
== END 2022-12-08 01:03 ==
LOC: DI 00:44
PROVIDERS: PCP Internal Medicine; Visit Provider Family Medicine
DX: M18.11 Unilateral primary osteoarthritis of first carpometacarpal joint, right hand (principal)
CPT/HCPCS: 73030; 73110

== ENCOUNTER → 2023-02-15 12:53 | Outpatient (BNVA) | payer MEDICARE, SELFPAY | PROVIDERS: PCP Internal Medicine; Visit Provider Nurse Practitioner Adult Health | DX: G31.84 Mild cognitive impairment of uncertain or unknown etiology (principal); G47.33 Obstructive sleep apnea (adult) (pediatric); H90.3 Sensorineural hearing loss, bilateral | CPT/HCPCS: 99212 ==

== ENCOUNTER → 2023-02-24 14:18 | Outpatient (BNVA) | payer MEDICARE, SELFPAY | PROVIDERS: PCP Internal Medicine; Referring Provider Internal Medicine; Visit Provider Nurse Practitioner Gerontology | DX: N39.41 Urge incontinence (principal); R35.0 Frequency of micturition; I10 Essential (primary) hypertension | CPT/HCPCS: 51798; 99213 ==

== ENCOUNTER 2023-03-21 15:47 | Outpatient (REF) | payer MEDICARE, SELFPAY ==
[2023-03-21 22:53] LABS: Bilirubin Small (Negative); Blood Large (Negative); Clarity Cloudy (Clear); Glucose Negative (Negative); Ketones Trace mg/dL (Negative); Leukocyte Esterase Small (Negative); Nitrite Positive (Negative); Specific Gravity 1.015 (1.005-1.025); pH 8.5 (5-8)
[2023-03-21 23:28] LABS: Bacteria Many HPF (Negative); C & S Indicated? C&S Done As Ordered; Crystals Negative HPF (Negative); Epithelial Cells Rare HPF (Negative); Mucus Negative (Negative)
== END 2023-03-21 15:48 | disposition home or self-care (01) ==
LOC: NCHCN 15:47
PROVIDERS: PCP Internal Medicine; Visit Provider Nurse Practitioner Family
DX: N39.0 Urinary tract infection, site not specified (principal); R32 Unspecified urinary incontinence
CPT/HCPCS: 81003; 81015; 87086

== ENCOUNTER 2023-04-19 18:12 | Outpatient (REF) | payer MEDICARE, SELFPAY | END 2023-04-19 18:13 | disposition home or self-care (01) | LOC: NCHCN 18:12 | PROVIDERS: PCP Internal Medicine; Visit Provider Family Medicine | DX: N39.0 Urinary tract infection, site not specified (principal); R32 Unspecified urinary incontinence | CPT/HCPCS: 81003; 87086 ==

== ENCOUNTER → 2023-04-20 12:58 | Outpatient (BNVA) | payer MEDICARE, SELFPAY | PROVIDERS: PCP Internal Medicine; Referring Provider Internal Medicine; Visit Provider Nurse Practitioner Adult Health | DX: G31.84 Mild cognitive impairment of uncertain or unknown etiology (principal); F32.A Depression, unspecified; G47.30 Sleep apnea, unspecified; H90.3 Sensorineural hearing loss, bilateral | CPT/HCPCS: 99213 ==

== ENCOUNTER 2023-07-04 05:25 | Outpatient (CLI) | payer MEDICARE, SELFPAY ==
[2023-07-04 15:27] LABS: Abs Immature Grans 0.06 10^3/uL (0.0-0.06); Absolute Basophil Count 0.05 10^3/uL (0.0-0.2); Absolute Eosinophil Count 0.64 10^3/uL (0.0-0.7); Absolute Lymphocyte Count 0.63 10^3/uL (1.2-3.4); Absolute Monocyte Count 0.81 10^3/uL (0.1-0.8); Absolute Neutrophil Count 7.41 10^3/uL (1.2-6.7); Basophils % 0.5; Eosinophils % 6.7; Immature Grans % 0.6; Lymphocytes % 6.6; MCH 33.4 pg (27.0-33.0); MCHC 33.3 % (32.0-36.0); MCV 100 fL (80-95); MPV 9.2 fL (8.0-11.0); Monocytes % 8.4; Neutrophils % 77.2; Platelet Count 252 10^3/uL (130-400); RBC 3.89 10^6/uL (3.93-5.22); RDW 14.7 % (11.7-14.6); RDW-SD 54.8 fL
[2023-07-04 15:52] LABS: ALT 16 U/L (14-59); AST 14 U/L (15-37); Albumin 3.4 g/dL (3.4-5.0); Alkaline Phosphatase 152 U/L (46-116); Anion Gap 7.7 mmol/L (3-11); BUN 14 mg/dL (7-18); CO2 31.3 mmol/L (21.0-32.0); CREATININE 1.1 mg/dL (0.55-1.02); Calcium 9.7 mg/dL (8.5-10.1); Chloride 97 mmol/L (98-107); Estimated GFR 50.17 (mL/min/1.73m2); Glucose 268 mg/dL (74-106); Potassium 4.2 mmol/L (3.5-5.1); Sodium 136 mmol/L (136-145); Total Protein 7.1 g/dL (6.4-8.2)
== END 2023-07-04 05:26 | disposition home or self-care (01) ==
PROVIDERS: PCP Internal Medicine; Visit Provider Nurse Practitioner
DX: C54.1 Malignant neoplasm of endometrium (principal)
CPT/HCPCS: 36415; 80053; 85025

== ENCOUNTER 2023-11-05 13:36 | Inpatient (IN) | payer MEDICARE, SELFPAY ==
[2023-11-05 13:38] VITALS: BP 175/114; PULSE 96; RESP 18; TEMP 36.5; O2SAT 95
--- NOTE | 2023-11-05 13:45 | DI.CT_ITS ---
Exam(s) CT CHEST/ABD/PEL W EXAM: CT CHEST/ABD/PEL W CLINICAL HISTORY: TRAUMA TECHNIQUE: Imaging Protocol: Axial computed tomography images with coronal and sagittal reformatted images were created and reviewed CONTRAST MATERIAL: Intravenous: Omnipaque 350 contrast volume:100 mL Oral: No COMPARISON: CT CT CHEST WO from 06/28/[address] CHEST PE CTA from 06/29/[address] CHEST/ABD/PEL WO from 12/23/2021 FINDINGS: The examination is limited due to patient motion artifact. CHEST: Tracheobronchial tree: Patent where visualized. Pulmonary parenchyma: No consolidation or dominant measurable mass. No architectural distortion. Visualized thyroid gland: There is a 1 cm hypodense nodule in the posterior aspect of the right thyro id gland. This is unchanged. No follow-up is recommended. Mediastinum and Trinh: No dominant adenopathy or fluid collection. The esophagus is unremarkable. Pleura: No effusion or pneumothorax. Heart: The heart is not dilated. Coronary artery calcifications. Calcification of the mitral annulus . No pericardial effusion. Pulmonary arteries: Due to the timing of the bolus, pulmonary up artery opacification is inadequate f or evaluation of pulmonary emboli. Aorta: Thoracic aorta non-dilated. Atherosclerotic calcification is present. Evaluation for dissecti on is limited due to the bolus timing. Lymph nodes: Within normal limits. Soft tissues: Unremarkable. Bones:There is an acute fracture at the base of the coracoid process of the right scapula. There are marked degenerative changes seen of the shoulders bilaterally. There are fractures involving the la teral aspects of the 3rd through 7th ribs. The fractures range from nondisplaced minimally displaced . ABDOMEN: Liver: Normal density. No measurable mass. Portal, Superior Mesenteric, and Splenic Veins: Unremarkable. Gallbladder and Biliary Tract: Status post cholecystectomy. Mild intrahepatic biliary ductal dilatat ion which appears stable. Pancreas: Normal density, no abnormal calcifications or inflammatory process. Spleen: Normal. Adrenals: No masses seen. Kidneys: Normal size, contour and axis. No radiodense stones or obstructive uropathy. No masses seen. Abdominal Aorta: Abdominal portion non-dilated. Atherosclerotic calcification is present. Bowel: There are diverticula in the colon but no evidence of acute diverticulitis. There is no evide nce of bowel obstruction or bowel wall thickening. There is no evidence of appendicitis. Peritoneal Cavity: No ascites, collection or mesenteric inflammatory response. No free air. Lymph Nodes: Within normal limits. Bones: Within normal limits for the patient's age. Soft Tissues: There is a small fat containing umbilical hernia. PELVIS: Bladder: There is a thick-walled cystic structure in the central pelvis (series 5 images 916 through 10 40). This may represent the thick-walled urinary bladder. Please correlate for surgical history as to whether the patient has had a prior hysterectomy. This may represent hematometra. Pelvic ultr asound should be considered for further evaluation. To the left in the pelvis there is a large cysti c structure again seen. Differential considerations include bladder diverticulum, benign or malignant ovarian cystic lesion or urinary bladder. Reproductive Organs: Please see the above section under bladder. Lymph Nodes: Within normal limits. Bones: Within normal limits. IMPRESSION: 1. Multiple nondisplaced to mildly displaced right rib fractures. 2. Nondisplaced fracture through the base of the right coracoid process. 3. No evidence of a pneumothorax or pleural effusion. 4. No evidence of an acute abdominal or pelvic organ injury. 5. Cystic structures seen in the pelvis as described above. For further characterization of the struc tures, pelvic ultrasound may be considered for further evaluation. MRI may be obtained if clinically appropriate. Unexpected findings RADIATION DOSE DELIVERED: 1,549.11mGy.cm Total DLP DATA REPOSITORY: All CT scans at this facility are submitted to the National Radiology Data Registry (NRDR) Dose Index Registry (DIR) with the [employer] (ACR). RADIATION OPTIMIZATION: All CT scans at this facility use at least one of these dose optimization te chniques: automated exposure control; mA and/or kV adjustment per patient size (includes targeted exa ms where dose is matched to clinical indication); or iterative reconstruction.
--- NOTE | 2023-11-05 13:45 | RT.EKG_ITS ---
APPROVED REPORT Exam: Resting ECG Reason for Exam: FALL Patient Location: E HR:93 bpm ECG Measurements Heart Rate 93 AXIS TN 197 P 59 QRSd 112 QRS -44 QT 382 T 26 QTc 476 Conclusion Sinus rhythm 93 RBBB no stemi
--- NOTE | 2023-11-05 13:45 | DI.CT_ITS ---
Exam(s) CT HEAD CERVICAL SPINE WO EXAM: CT HEAD CERVICAL SPINE WO CLINICAL HISTORY: TRAUMA. TECHNIQUE: Imaging Protocol: Axial computed tomography images with coronal and sagittal reformatted images were created and reviewed COMPARISON: CT CT HEAD - STROKE PROTOCOL from 06/28/[address] BRAIN NECK CTA from 06/28/2021 FINDINGS: CT Head: Ventricles and Extra axial spaces: Normal in size and morphology for the patient's age. Hemorrhage: None. Cerebral parenchyma: There are areas of decreased attenuation in the white matter consistent with chr onic microvascular ischemic disease. No mass effect is present. No evidence of an acute territorial infarct are seen. Midline shift: None. Brainstem/Cerebellum: Normal. Calvarium: Normal. Visualized Paranasal sinuses/Mastoids: Clear. Soft Tissues: There is soft tissue swelling at the apex of the skull on the left. CT Cervical Spine: Bones: No acute fracture or subluxation. Degenerative changes are present. There is mild reversal of the normal cervical lordosis. Soft Tissues: Unremarkable. Lung Apices: Clear. IMPRESSION: 1. No acute intracranial process. 2. Subcutaneous edema overlying the high left parietal 3. No acute fracture or subluxation in the cervical spine. RADIATION DOSE DELIVERED: 1,737.92mGy.cm Total DLP DATA REPOSITORY: All CT scans at this facility are submitted to the National Radiology Data Registry (NRDR) Dose Index Registry (DIR) with the [employer] (ACR). RADIATION OPTIMIZATION: All CT scans at this facility use at least one of these dose optimization te chniques: automated exposure control; mA and/or kV adjustment per patient size (includes targeted exa ms where dose is matched to clinical indication); or iterative reconstruction.
[2023-11-05 14:05] LABS: Abs Immature Grans 0.18 10^3/uL (0.0-0.06); Absolute Eosinophil Count 0.55 10^3/uL (0.0-0.7); Basophils % 0.3; Eosinophils % 3.8; HCT 42.6 % (36.0-46.0); HGB 14.5 g/dL (11.2-15.7); Immature Grans % 1.2; Lymphocytes % 3.5; MCH 34.9 pg (27.0-33.0); MCV 103 fL (80-95); MPV 9.8 fL (8.0-11.0); Monocytes % 5.8; Neutrophils % 85.4; Platelet Count 239 10^3/uL (130-400); RBC 4.15 10^6/uL (3.93-5.22); RDW 14.6 % (11.7-14.6); RDW-SD 55.7 fL; WBC 14.41 10^3/uL (4.4-10.8)
[2023-11-05 14:06] LABS: Absolute Basophil Count 0.04 10^3/uL (0.0-0.2); Absolute Monocyte Count 0.84 10^3/uL (0.1-0.8); Absolute Neutrophil Count 12.31 10^3/uL (1.2-6.7)
[2023-11-05 14:18] LABS: Prothrombin Time 10.3 sec (9.1-11.1)
[2023-11-05 14:21] LABS: ALT 22 U/L (14-59); AST 23 U/L (15-37); Albumin 3.7 g/dL (3.4-5.0); Alkaline Phosphatase 167 U/L (46-116); Anion Gap 6.9 mmol/L (3-11); BUN 14 mg/dL (7-18); Bilirubin, Total 1.1 mg/dL (0.2-1.0); CO2 31.1 mmol/L (21.0-32.0); CREATININE 1.1 mg/dL (0.55-1.02); Calcium 9.4 mg/dL (8.5-10.1); Chloride 101 mmol/L (98-107); Estimated GFR 49.86 (mL/min/1.73m2); Glucose 213 mg/dL (74-106); Lipase 19 U/L (16-77); Potassium 4.7 mmol/L (3.5-5.1); Sodium 139 mmol/L (136-145); Total Protein 7.6 g/dL (6.4-8.2)
[2023-11-05] MEDS: Normal Saline Flush 10 ML SYR IVP ×2 (14:31→20:50)
[2023-11-05] MEDS: Omnipaque 350 MG/ML 100 ML BTL IJ (14:32)
[2023-11-05] MEDS: Normal Saline - Diluent 50 ML VIAL IJ (14:32)
--- NOTE | 2023-11-05 14:45 | DI.RAD_ITS ---
Exam(s) XR SHOULDER RT COMPLETE 2+V EXAM: XR SHOULDER RT COMPLETE 2+V CLINICAL HISTORY: trauma. TECHNIQUE: 2D digital imaging was performed of the right shoulder. Three images were obtained. AP, Grashey and Y views were obtained. COMPARISON: CR,XR XR CHEST 2V PA LATERAL from 06/28/2021 CR XR SHOULDER RT COMPLETE 2+V from 12/08/[address] CHEST/ABD/PEL W from 11/05/2023 FINDINGS: BONES: There are acute fractures of the right 3rd, 5th and 6th ribs laterally. No bony destructive l esion is seen. JOINTS: No dislocation present. Degenerative changes are seen at the acromioclavicular joint. There are marked degenerative changes seen at the glenohumeral joint with loss of the joint space and osteo phytes arising from both the inferior humeral head and the inferior glenoid. SOFT TISSUE: There is a soft tissue calcification adjacent to the greater tuberosity which may reflec t calcific tendinitis. IMPRESSION: 1. No acute fracture or dislocation of the right shoulder. 2. Multiple acute right rib fractures. DATA REPOSITORY: RADIATION DOSE DELIVERED:
--- NOTE | 2023-11-05 15:21 | DI.VRAD_ITS ---
PROCEDURE INFORMATION: Exam: CT Head Without Contrast Exam date and time: 11/05/2023 2:38 PM Age: 83 years old Clinical indication: Injury or trauma; Fall; Blunt trauma (contusions or hematomas) TECHNIQUE: Imaging protocol: Computed tomography of the head without contrast. COMPARISON: CT BRAIN NECK CTA 06/28/2021 11:31 AM FINDINGS: Brain: No acute intracranial hemorrhage, mass or shift. Findings suggestive of mild central, cortical atrophy. No acute cortical or major vascular territory infarct. Low attenuation is seen within the periventricular, subcortical white matter nonspecific but likely small vessel change/microangiopathy. There are no significant extra-axial collections. There is no shift or herniation. Intracranial vascular calcification is noted. There is no hyperdense thrombus Cerebral ventricles: There is no significant ventricular enlargement/hydrocephalus. Mild ventricular prominence likely is related to central atrophy. Paranasal sinuses: There is no significant sinus opacification or fluid level Mastoid air cells: No significant mastoid or middle ear opacification Bones/joints: There is hyperostosis frontalis. There is no acute fracture. Soft tissues: There is subcutaneous edema noted at the parietal convexity particularly to the left of midline. IMPRESSION: Parietal subcutaneous edema/hematoma. No subjacent fracture and no acute intracranial findings identified. PROCEDURE INFORMATION: Exam: CT Cervical Spine Without Contrast Exam date and time: 11/05/2023 2:38 PM Age: 83 years old Clinical indication: Injury or trauma; Fall; Blunt trauma (contusions or hematomas) TECHNIQUE: Imaging protocol: Computed tomography of the cervical spine without contrast. COMPARISON: CT BRAIN NECK CTA 06/28/2021 11:31 AM FINDINGS: Bones/joints: Bony structures are osteopenic. There is reversal of the cervical lordosis which may be positional or due to spasm. There is minimal anterolisthesis of C2 with respect to C3, C3 with respect to C4. There is also minimal anterolisthesis of C7 with respect to T1. There is no evidence of an acute fracture in the cervical spine. There is no decrease of vertebral body height. There is no acute or destructive bony abnormality. There is multilevel disc space narrowing in the cervical spine. There are disc osteophyte complexes, spondylitic changes of the endplates, uncovertebral and facet arthropathy. Degenerative changes lead to narrowing of the canal/stenosis at the level of the disc spaces. This is most prominent at C5-C6 and C6-C7. Degenerative changes also lead to multilevel foraminal stenosis particularly C3-C4 through C6-C7. Lungs: There is limited visualization of the lung apices but no significant abnormality is identified at this field of view. Soft tissues: There is no evidence of a discrete soft tissue mass in the neck. IMPRESSION: 1. No acute fracture in the cervical spine. 2. Cervical spondylosis, degenerative disc disease with multilevel spinal, foraminal stenosis.If further evaluation of the intervertebral discs, canal, cord, foramina is indicated MR correlation recommended. Dictated and Authenticated by: Michelle Zhou MD. Ordering:JERSON Owens MD
--- NOTE | 2023-11-05 15:42 | DI.VRAD_ITS ---
PROCEDURE INFORMATION: Exam: XR Right Shoulder Exam date and time: 11/05/2023 3:07 PM Age: 83 years old Clinical indication: Injury or trauma; Fall TECHNIQUE: Imaging protocol: Radiologic exam of the right shoulder. Views: 2 or more views. COMPARISON: CR XR SHOULDER RT COMPLETE 2+V 12/08/2022 12:45 PM FINDINGS: Bones/joints: Bony structures are osteopenic. The glenohumeral articulation is intact with advanced DJD. There are probable loose bodies within the right shoulder joint also previously noted. No definite acute fracture or dislocation is identified. Scapula, visualized right upper ribs are intact. Soft tissues: Soft tissues are unremarkable IMPRESSION: Advanced DJD. No acute findings by plain film exam. Dictated and Authenticated by: Michelle Zhou MD. Ordering:JERSON Owens MD
--- NOTE | 2023-11-05 16:09 | DI.VRAD_ITS ---
PROCEDURE INFORMATION: Exam: CT Chest With Contrast; Diagnostic Exam date and time: 11/05/2023 2:49 PM Age: 83 years old Clinical indication: Injury or trauma; Fall; Generalized; Blunt trauma (contusions or hematomas) TECHNIQUE: Imaging protocol: Diagnostic computed tomography of the chest with contrast. 3D rendering (Not supervised by radiologist): MIP and/or 3D reconstructed images were created by the technologist. Contrast material: OMNIPAQUE 350; Contrast volume: 100 ml; Contrast route: INTRAVENOUS (IV); COMPARISON: CT CHEST/ABD/PEL WO 12/23/2021 4:33 PM FINDINGS: Lungs: There is minimal dependent atelectasis in the lungs. There is no significant airspace consolidation identified. There is no evidence of an endobronchial lesion. Pleural spaces: A large pleural effusion, or pneumothorax is not seen Heart: Heart is mildly enlarged. There is calcification of the mitral annulus. Coronary artery calcification is noted. There is no significant pericardial effusion Lymph nodes: No significant adenopathy identified. Vasculature: The aorta is tortuous but nonaneurysmal. There is no acute aortic abnormality. Bones/joints: Degenerative changes are seen in both shoulders. Degenerative changes are seen in the thoracic spine. There are multiple right lateral rib fractures involving the right 3rd through 6th ribs. There is slight displacement of the right 6th rib fracture laterally for example best seen on series 5, image 138. Soft tissues: No large subcutaneous hematoma is identified. Other findings: Exam mildly degraded by patient motion. IMPRESSION: 1. Right lateral rib fractures particularly involving the right lateral 6th rib with slight displacement. No associated pleural effusion or pneumothorax. 2. Dependent atelectasis in the lungs. PROCEDURE INFORMATION: Exam: CT Abdomen And Pelvis With Contrast Exam date and time: 11/05/2023 2:49 PM Age: 83 years old Clinical indication: Injury or trauma; Fall; Generalized; Blunt trauma (contusions or hematomas) TECHNIQUE: Imaging protocol: Computed tomography of the abdomen and pelvis with contrast. 3D rendering (Not supervised by radiologist): MIP and/or 3D reconstructed images were created by the technologist. COMPARISON: CT CHEST/ABD/PEL WO 12/23/2021 4:33 PM FINDINGS: Liver: No focal intrahepatic abnormality is identified. Gallbladder and bile ducts: The patient has had prior cholecystectomy. There is artifact in association with multiple surgical clips. There is mild enlargement of central hepatic ducts. Mild prominence of the extrahepatic common bile duct. No findings to suggest choledocholithiasis. Pancreas: Pancreas is unremarkable Spleen: The spleen is mildly enlarged measuring approximately 13 cm in superior to inferior extent. No intra splenic abnormality is identified. Adrenal glands: Adrenals are unremarkable Kidneys and ureters: No radiopaque urinary tract calculi. No hydronephrosis. Stomach and bowel: No evidence of bowel obstruction. No discrete mass or pneumatosis. Appendix: No findings to suggest acute appendicitis Intraperitoneal space: No significant ascites. No discrete or drainable collection. No evidence of free intraperitoneal air. Vasculature: The aorta is nonaneurysmal Lymph nodes: No significant adenopathy Urinary bladder: The bladder is nondistended. There is a low-density/cystic abnormality adjacent to the bladder on the left. It measures approximately 12.4 cm in its maximum AP diameter as measured on series 5, image 995. It may represent a bladder diverticulum although other adnexal etiology is not excluded on this noncontrast enhanced exam. Reproductive: Prior hysterectomy. Cystic abnormality adjacent to the left aspect of the bladder as described above.. No right adnexal abnormality identified. Bones/joints: Degenerative changes are seen in the thoracic, lumbar spine. There are bulges spondylitic changes of the endplates, facet arthropathy. Vacuum phenomenon is noted at multiple levels. Degenerative changes lead to narrowing of the canal/stenosis which is present at multiple levels but in the lumbar spine appears most severe at L3-L4, L4-L5. Multilevel foraminal stenosis is noted. Soft tissues: Significant laxity of the ventral abdominal wall. Small fat containing ventral umbilical hernia. Other findings: Exam mildly degraded by patient motion. IMPRESSION: 1. No acute bony abnormality. Thoracolumbar spondylosis, degenerative disc disease with spinal stenosis most prominent at L3-L4, L4-L5. 2. Prior cholecystectomy. Prominence of the central intrahepatic ducts, extrahepatic common bile duct without evidence of choledocholithiasis. 3. Mild splenomegaly 4. Low-density/cystic abnormality adjacent to the bladder on the left and in the left adnexal region. This could represent a large bladder diverticulum but other adnexal etiologies are not excluded on this exam obtained without contrast. 5. Laxity of the ventral abdominal wall. 6. No free fluid focal collections or free intraperitoneal air. Dictated and Authenticated by: Michelle Zhou MD. Ordering:JERSON Owens MD
--- NOTE | 2023-11-05 17:21 | ED.GENADUL_ITS ---
Discharge Plan Discharge Details Chief Complaint: Trauma Primary Care Provider: King Ramos ED Provider: Zacarias Keller Home Meds and New Rx's Prescriptions: No Action acetaminophen [Tylenol] 325 mg tablet 325 mg PO QID PRN (Reason: pain) ibuprofen 600 mg tablet 600 mg PO TID PRN citalopram 20 mg tablet 20 mg PO DAILY lisinopril 5 mg tablet 5 mg PO DAILY magnesium 30 mg tablet 30 mg PO DAILY Myrbetriq 50 mg tablet extended release 24 hr 50 mg PO DAILY Qty: 90 3RF cholecalciferol (vitamin D3) [Vitamin D3] 2,000 UNIT capsule 5,000 unit PO DAILY atorvastatin 10 MG tablet 10 mg PO DAILY levothyroxine 50 MCG tablet 25 mcg PO DAILY vitamin B complex [Vitamins B Complex] Tablet 1 tab PO DAILY magnesium L-lactate [Magtab] 84 mg tablet extended release 84 mg PO DAILY Patient Comments: Take 1 tablet by mouth once a day folic acid 1 mg Tablet 1 mg PO DAILY Qty: 30 0RF HPI General Date/Time Provider Initiated Documentation: 11/05/23 13:45 . Limitations to Documentation: altered mental status and physical limitation . Information obtained by: patient, family and EMS . HPI Narrative: 83-year-old female with past medical history of cognitive impairment, dementia, urinary incontinence, hypertension presents for evaluation after a fall. The patient states that he stepped outside to go check the mail. He was gone for approximately 20 to 30 minutes. When he returned the patient was found at the bottom of the stairs. Unknown LOC. Unable to get up and walk. On EMS arrival, they note that she has significant right shoulder pain. Was at her neurologic baseline. No medications given prior to arrival. Related Data Home Medications Medication Instructions Recorded Confirmed Vitamin D3 50 mcg (2,000 unit) 5,000 unit PO DAILY 01/22/13 11/05/23 capsule (cholecalciferol (vitamin D3)) atorvastatin 10 mg tablet 10 mg PO DAILY 07/05/16 11/05/23 levothyroxine 50 mcg tablet 25 mcg PO DAILY 07/05/16 06/28/23 acetaminophen 325 mg tablet 325 mg PO QID PRN pain 01/16/20 11/05/23 (Tylenol) ibuprofen 600 mg tablet 600 mg PO TID PRN 12/31/20 06/28/23 folic acid 1 mg tablet 1 mg PO DAILY #30 tabs 07/02/21 11/05/23 lisinopril 5 mg tablet 5 mg PO DAILY 02/24/22 06/28/23 magnesium 30 mg tablet 30 mg PO DAILY 02/24/22 11/05/23 mirabegron 50 mg tablet,extended 50 mg PO DAILY #90 tab-caps 02/24/23 11/05/23 release 24 hr (Myrbetriq) citalopram 20 mg tablet 20 mg PO DAILY 06/28/23 11/05/23 magnesium L-lactate 84 mg 84 mg PO DAILY 11/05/23 11/05/23 tablet,extended release (Magtab) vitamin B complex (Vitamins B 1 tab PO DAILY 11/05/23 11/05/23 Complex tablet) Previous Rx's Medication Instructions Recorded folic acid 1 mg tablet 1 mg PO DAILY #30 tabs 07/02/21 mirabegron 50 mg tablet,extended 50 mg PO DAILY #90 tab-caps 02/24/23 release 24 hr (Myrbetriq) Allergies Allergy/AdvReac Type Severity Reaction Status Date / Time No Known Allergies Allergy Unverified 11/05/23 13:45 General Stated Complaint: Trauma SONAL: 3 Exam Narrative Exam Narrative: Review of Systems: All systems reviewed & are unremarkable except as noted in HPI and below Obese, elderly No large laceration or skull deformity appreciated some soft tissue contusion noted PERRL, normal conjunctiva No midline C-spine tenderness RRR Unlabored respiratory effort, clear bilaterally Nondistended abdomen , , soft nontender Pelvis stable Right shoulder tender, refusing to range, no obvious dislocation Multiple excoriations and skin changes within the perineum consistent with yeast Oriented to person and place Course Vital Signs Vital signs: Vital Signs Temperature 36.5 C 11/05/23 13:38 Pulse 96 H 11/05/23 13:38 Respiratory Rate 18 11/05/23 13:38 Blood Pressure 175/114 H 11/05/23 13:38 Pulse Oximetry 95 11/05/23 13:38 Temperature 36.5 C 11/05/23 13:38 Temperature Source Temporal Artery Scan 11/05/23 13:38 Pulse 96 H 11/05/23 13:38 Respiratory Rate 18 11/05/23 13:38 Respiratory Effort Normal 11/05/23 17:06 Respiratory Depth Normal 11/05/23 17:06 Respiratory Pattern Normal 11/05/23 17:06 Blood Pressure 175/114 H 11/05/23 13:38 Blood Pressure Position Supine 11/05/23 13:38 Pulse Oximetry 95 11/05/23 13:38 Oxygen Delivery Method Room Air 11/05/23 13:38 Oxygen Flow Rate 0 11/05/23 13:38 Pain Level 6 11/05/23 13:38 Lab/Test Results Lab/Test Results: Laboratory Tests Range/Units 11/05/23 13:50 WBC (4.4-10.8) 10^3/uL 14.41 H RBC (3.93-5.22) 10^6/uL 4.15 Hgb (11.2-15.7) g/dL 14.5 Hct (36.0-46.0) % 42.6 MCV (80-95) fL 103 H MCH (27.0-33.0) pg 34.9 H MCHC (32.0-36.0) % 34.0 RDW (11.7-14.6) % 14.6 Plt Count (130-400) 10^3/uL 239 MPV (8.0-11.0) fL 9.8 Immature Gran % 1.2 Neutrophils % 85.4 Lymphocytes % 3.5 Monocytes % 5.8 Eosinophils % 3.8 Basophils % 0.3 Nucleated RBC % (0.0-0.3) % 0.0 Absolute Neutrophils (1.2-6.7) 10^3/uL 12.31 H Absolute Lymphocytes (1.2-3.4) 10^3/uL 0.50 L Absolute Monocytes (0.1-0.8) 10^3/uL 0.84 H Absolute Eosinophils (0.0-0.7) 10^3/uL 0.55 Absolute Basophils (0.0-0.2) 10^3/uL 0.04 PT (9.1-11.1) sec 10.3 INR (0.9-1.1) 1.0 APTT (23.6-32.8) sec 25.0 Sodium (136-145) mmol/L 139 Potassium (3.5-5.1) mmol/L 4.7 Chloride (98-107) mmol/L 101 Carbon Dioxide (21.0-32.0) mmol/L 31.1 Anion Gap (3-11) mmol/L 6.9 BUN (7-18) mg/dL 14 Creatinine (0.55-1.02) mg/dL 1.1 H Est GFR (CKD-EPI 2020) (mL/min/1.73m2) 49.86 Glucose (74-106) mg/dL 213 H Calcium (8.5-10.1) mg/dL 9.4 Total Bilirubin (0.2-1.0) mg/dL 1.1 H AST (15-37) U/L 23 ALT (14-59) U/L 22 Alkaline Phosphatase (46-116) U/L 167 H Total Protein (6.4-8.2) g/dL 7.6 Albumin (3.4-5.0) g/dL 3.7 Lipase (16-77) U/L 19 Medical Decision Making Emergent evaluation of fall. Initial differential includes fracture, dislocation, intracranial process. Fall likely mechanical that was unwitnessed. EKG does not reveal concerning dysrhythmia. Plan for labs, urinalysis and trauma scans. Lab work reviewed. Mild leukocytosis, could be stress shift. The patient's creatinine is 1.1 which is her baseline. No elevation in the lipase. Her head and C-spine imaging are unremarkable. Her body imaging does reveal fractures of ribs 3 through 6 with displacement of ribs 6. No obvious pulmonary contusion. Shoulder does not appear to be dislocated or fractured on exam. With a rib fracture I suspect that her significant shoulder discomfort is likely more from the ribs. Given her fracture burden, general surgery was consulted for admission for further pain control and management of traumatic injury. Medical Records Medical records reviewed: Yes I reviewed the patient's medical records. Lab Data Lab results reviewed: Yes I reviewed the patient's lab results. Quality:SDOH Health Related Social Needs: No Data to Display PFSH All Active Problems Sleep apnea (Acute) Excessive cerumen in left ear canal (Acute) Folate deficiency anemia (Acute) Aspiration pneumonitis (Acute) Elevated troponin (Acute) Discharge planning issues (Acute) DVT prophylaxis (Acute) Hyponatremia (Acute) Ambulatory dysfunction (Acute) UTI (urinary tract infection) (Acute) Sepsis (Acute) Thickened endometrium (Acute) Abnormal vaginal bleeding (Acute) Mild cognitive impairment (Acute) Obstructive sleep apnea (Chronic) Hypertension (Chronic) Urgency incontinence (Acute 11/05/16) Tinnitus (Acute 12/31/13) Sensorineural hearing loss, bilateral (Acute 12/31/13) Frequency of micturition (Acute 11/05/16) Medical History Palliative care patient Onychomycosis Sensorineural hearing loss Hypercholesteremia Anxiety Depression Urinary incontinence Metabolic syndrome Hypothyroidism Diabetes mellitus type 2 in obese Neuropathy Vertigo Dysphagia Irregular bowel habits Dry mouth Low back pain Lordosis Frequent falls Surgical History Status post bilateral knee replacements Hx of cholecystectomy Family History Brother Heart disease Dementia Depression Father Heart disease Dementia Depression Mother Dementia Depression Social History Smoking/Tobacco Use Status: Never Smoking risk assessment performed?: Yes Alcohol Intake: current Alcohol Intake frequency: holidays/special occasions only Drug use: Never Substance use type: does not use Household members: spouse Housing: house What is your relationship status?: Panel score (0-1 are the most socially isolated patients): 1 Seatbelt use: always Do you feel safe at home: Yes Do you feel safe in your relationship?: Yes
[2023-11-05 17:35] VITALS: PULSE 99; RESP 16
--- NOTE | 2023-11-05 17:37 | HPE_ITS ---
Date of service: 11/05/23 Time of Service: 17:37 Assessment and Plan Assessment and plan (1) Blunt head trauma: Status: Acute (2) Blunt trauma to chest: Status: Acute (3) Multiple fractures of ribs, right side, initial encounter for closed fracture: Status: Acute Assessment and plan: high risk pneumonia pain control- see orders consult anethesia for rib blocks pulm toilet (4) Atelectasis of both lungs: Status: Acute (5) Calcification of mitral valve: Status: Acute (6) Coronary artery calcification seen on CAT scan: Status: Acute (7) Spinal stenosis of lumbar region: Status: Acute (8) Umbilical hernia: Status: Acute (9) Sensorineural hearing loss, bilateral: Status: Acute (10) DVT prophylaxis: Status: Acute (11) Obstructive sleep apnea: Status: Chronic Assessment and plan: pt won't wear CPAP (12) Ambulatory dysfunction: Status: Acute (13) Diabetes mellitus type 2 in obese: Assessment and plan: A1c 7 not on meds (14) Hypercholesteremia: (15) Anxiety: (16) Depression: (17) Hypothyroidism: (18) Metabolic syndrome: (19) Urgency incontinence: Status: Acute (20) Cerebral atrophy: Status: Acute (21) Scalp hematoma: Status: Acute (22) History of endometrial cancer: Status: Acute Assessment and plan: s/p corey/bso chemo (23) DJD (degenerative joint disease), lumbar: Status: Acute (24) Neurodegenerative cognitive impairment: Status: Acute (25) Immobility: Status: Acute (26) Fall (on) (from) other stairs and steps, initial encounter: Status: Acute (27) Poor historian: Status: Acute (28) Acute UTI (urinary tract infection): Status: Acute Assessment and plan: Urinary sepsis could be the cause for the worsening of the confusion and fall. ceftriaxone (29) Discharge planning issues: Status: Acute Assessment and plan: This document was created with voice activated software and may contain errors. 75 mins spent with the patient today. History of Present Illness Narrative: Patient is a 83-year-old female with dementia who fell at home. She sustained blunt head and chest trauma. She has a contusion of the scalp. There is no signs of any intracranial bleed is noted on CT. She has multiple rib fracture ands atelectasis. There is no sign of any interval stroke or IL for the cause of the fall. She is not on any blood thinners. I did review her CTs and labs personally Patient cannot provide any history and history is taken from her daughter. Patient has pretty much been multiple at home. She get up to go to the toilet. She cannot climb stairs and has a electric stair chair. It is unknown why she got up and tried to walk down the stairs yesterday. Her went out to get the mail. Daughter notes that she has been increasingly falling at home. is having a more difficult time caring for her. She does not know any of the patient's eating/toilet habits. Today patient is only complaining of Right shoulder pain currently Past medical history is taken from the daughter and the chart. Patient does have a history of frequent UTIs. Review of Systems Unobtainable due to mental status PFSH All Active Problems (Updated 11/06/23 @ 15:32 by Etta Fritz DO) Deformity of both feet (Acute) Elevated LFTs (Acute) Advanced dementia (Acute) Acute UTI (urinary tract infection) (Acute) Poor historian (Acute) Fall (on) (from) other stairs and steps, initial encounter (Acute) Immobility (Acute) Neurodegenerative cognitive impairment (Acute) DJD (degenerative joint disease), lumbar (Acute) History of endometrial cancer (Acute) Patient had a radical and COREY/BSO for endometrial cancer and chemo in 2020 Scalp hematoma (Acute) Cerebral atrophy (Acute) Umbilical hernia (Acute) Spinal stenosis of lumbar region (Acute) Coronary artery calcification seen on CAT scan (Acute) Calcification of mitral valve (Acute) Atelectasis of both lungs (Acute) Multiple fractures of ribs, right side, initial encounter for closed fracture (Acute) Blunt trauma to chest (Acute) Blunt head trauma (Acute) Sleep apnea (Acute) Excessive cerumen in left ear canal (Acute) Folate deficiency anemia (Acute) Discharge planning issues (Acute) DVT prophylaxis (Acute) Ambulatory dysfunction (Acute) Obstructive sleep apnea (Chronic) Hypertension (Chronic) Urgency incontinence (Acute 11/05/16) Tinnitus (Acute 12/31/13) Sensorineural hearing loss, bilateral (Acute 12/31/13) Medical History (Updated 11/06/23 @ 15:32 by Etta M Stoiber, DO) Hypomagnesemia Frequency of micturition (11/05/16) Abnormal vaginal bleeding Thickened endometrium Elevated troponin Mild cognitive impairment Hyponatremia Dehydration Acute respiratory failure with hypoxia Aspiration pneumonitis Sepsis Palliative care patient Onychomycosis Sensorineural hearing loss Hypercholesteremia Anxiety Depression Urinary incontinence Metabolic syndrome Hypothyroidism Diabetes mellitus type 2 in obese Neuropathy Vertigo Dysphagia Irregular bowel habits Dry mouth Low back pain Lordosis Frequent falls Surgical History Status post bilateral knee replacements Hx of cholecystectomy Family History Brother Heart disease Dementia Depression Father Heart disease Dementia Depression Mother Dementia Depression Social History Smoking/Tobacco Use Status: Never Smoking risk assessment performed?: Yes Alcohol Intake: current Alcohol Intake frequency: holidays/special occasions only Drug use: Never Substance use type: does not use Household members: spouse Housing: apartment What is your relationship status?: Panel score (0-1 are the most socially isolated patients): 1 Seatbelt use: always Do you feel safe at home: Yes Do you feel safe in your relationship?: Yes Meds Allergies and Home Medications Allergies Allergy/AdvReac Type Severity Reaction Status Date / Time No Known Allergies Allergy Unverified 11/05/23 13:45 Home Medications Medication Instructions Recorded Confirmed Type Vitamin D3 50 mcg (2,000 unit) 5,000 unit PO DAILY 01/22/13 11/06/23 History capsule (cholecalciferol (vitamin D3)) atorvastatin 10 mg tablet 10 mg PO DAILY 07/05/16 11/05/23 History acetaminophen 325 mg tablet 325 mg PO QID PRN pain 01/16/20 11/06/23 History (Tylenol) ibuprofen 600 mg tablet 600 mg PO TID PRN 12/31/20 11/06/23 History folic acid 1 mg tablet 1 mg PO DAILY #30 tabs 07/02/21 11/05/23 Rx lisinopril 5 mg tablet 5 mg PO DAILY 02/24/22 11/06/23 History mirabegron 50 mg tablet,extended 50 mg PO DAILY #90 tab-caps 02/24/23 11/05/23 Rx release 24 hr (Myrbetriq) citalopram 20 mg tablet 20 mg PO DAILY 06/28/23 11/05/23 History magnesium L-lactate 84 mg 84 mg PO DAILY 11/05/23 11/05/23 History tablet,extended release (Magtab) vitamin B complex (Vitamins B 1 tab PO DAILY 11/05/23 11/06/23 History Complex tablet) levothyroxine 25 mcg tablet 25 mcg PO DAILY 11/06/23 11/06/23 History Exam Const General: in distress, disheveled and frail appearing Nutritional Appearance: obese Orientation: oriented to person [facility] Head: normal to inspection, no palpable skull fracture, no abrasions and no scalp tenderness Ears: hearing grossly impaired General nose exam: external nose normal, nasal mucous membranes and turbinates normal and septum normal Face and sinus: normal facial exam and sinuses nontender Mouth: oral mucosae normal and moist mucous membranes Teeth and gingiva: fair dentition Eyes General: appearance normal, both eyes and all related structures Sclera: sclerae normal Other: pt right eyelid is dropping sclera clear Neck Other: no pain by palpation-pt is unreliable for exam no JVD Chest Chest: normal inspection of the chest and abnormal inspection of the chest (pain R chest ) Resp Effort & Inspection: normal respiratory effort and able to speak in complete sentences Auscultation: clear to auscultation bilaterally Cardio Jugular venous pressure: no JVD Rate: regular rate Rhythm: regular rhythm GI Palpation: soft Auscultation: normal bowel sounds Other: non tender s/p open leigh no hernias Skin Other: yeast fadi pannus Extrem General: no pedal edema Right lower extremity: foot Other: rocker bottom feet OA of toes Psych Appearance: disheveled Speech and Movement: agitated Mood: anxious mood Affect: anxious affect Thought Content: other (Tangential) Insight: poor Results Labs 11/06/23 06:06 11/06/23 06:06 Labs: Laboratory Results - last 24 hr 11/05/23 13:50 WBC 14.41 H RBC 4.15 Hgb 14.5 Hct 42.6 MCV 103 H MCH 34.9 H MCHC 34.0 RDW 14.6 Plt Count 239 MPV 9.8 Immature Gran % 1.2 Neutrophils % 85.4 Lymphocytes % 3.5 Monocytes % 5.8 Eosinophils % 3.8 Basophils % 0.3 Nucleated RBC % 0.0 Absolute Neutrophils 12.31 H Absolute Lymphocytes 0.50 L Absolute Monocytes 0.84 H Absolute Eosinophils 0.55 Absolute Basophils 0.04 PT 10.3 INR 1.0 APTT 25.0 Sodium 139 Potassium 4.7 Chloride 101 Carbon Dioxide 31.1 Anion Gap 6.9 BUN 14 Creatinine 1.1 H Est GFR (CKD-EPI 2020) 49.86 Glucose 213 H Calcium 9.4 Total Bilirubin 1.1 H AST 23 ALT 22 Alkaline Phosphatase 167 H Total Protein 7.6 Albumin 3.7 Lipase 19 Last Vital Signs Temp 36.5 C 11/05/23 13:38 Pulse 99 H 11/05/23 17:35 Resp 16 11/05/23 17:35 BP 175/114 H 11/05/23 13:38 Pulse Ox 95 11/05/23 13:38 Time Spent Time spent with Patient: >75 minutes Time was spent: preparing to see the patient(eg.review tests), obtaining and/or reviewing separately otained hiistory, ordering medications,tests, procedures, referring, communicating with other health respiratory care instructor, indepentently interpreting results, counseling the patient and care coordination
[2023-11-05 17:45] VITALS: BP 145/87; PULSE 96; RESP 20; O2SAT 93
[2023-11-05 19:32] LABS: Bilirubin Negative (Negative); Blood Small (Negative); Clarity Clear (Clear); Glucose Negative (Negative); Ketones 15 mg/dL (Negative); Leukocyte Esterase Negative (Negative); Nitrite Negative (Negative); Specific Gravity 1.015 (1.005-1.025); Urobilinogen 0.2 mg/dL (Up to 0.2); pH 6.5 (5-8)
[2023-11-05 19:46] LABS: Bacteria Rare HPF (Negative); C & S Indicated? Yes; Casts Negative LPF (Negative); Crystals Negative HPF (Negative); Epithelial Cells Rare HPF (Negative); Mucus Trace (Negative)
[2023-11-05 19:53] VITALS: BP 141/109; PULSE 99; RESP 19; TEMP 37.3; O2SAT 99
[2023-11-05 20:35] LABS: Hemoglobin A1C 7.1 % (<5.7)
[2023-11-05] MEDS: cefTRIAXone 2 GM/50 ML BAG IVPB (20:50)
[2023-11-05] MEDS: Docusate Sodium 100 MG CAP PO (20:51)
[2023-11-05] MEDS: Gabapentin 100 MG CAP PO (20:51)
[2023-11-05] MEDS: Acetaminophen 500 MG TAB 1000 MG PO (20:51)
[2023-11-05] MEDS: Lidocaine 5% Patch 1 PATCH TP (20:51)
[2023-11-05 21:12] VITALS: BP 160/90
[2023-11-05] MEDS: Lactated Ringers 1,000 ML 75 ML IV (21:54)
--- NOTE | 2023-11-05 22:38 | RESPIRATORY ---
RT Assessment Start: 11/05/23 17:50 Freq: .q shift and prn Status: Active Protocol: Document 11/05/23 22:34 RT.MAGR (Rec: 11/05/23 22:38 RT.MAGR [id number]) RT Assessment Pulmonary History Pulmonary History Asthma Smoking History Smoking/Tobacco Use Status Never OXYGEN HISTORY: CPAP Can use home machine Yes BIPAP Can you home machine No Trilogy/AVAPS Can use home machine No Respiratory Breath Sounds Breath Sounds Any abnormal sounds, decreased breath sounds Pulse Rate <100 Respiratory Rate <18 Shortness of Breath None Respiratory Therapy Score Total 1 Assessment and Plan RT Treatment Protocol Lung Expansion Therapy Protocol Note Lung Expansion Therapy Protocol: IS and Deep cough and breathing
--- NOTE | 2023-11-05 22:40 | RESPIRATORY ---
RT spoke with patient regarding FAUSTO diagnosis. Pt. states use CPAP machine but not available at bedside. Patient refused to use hospital's CPAP. DME is unknown per pt. Pt. also advised RT that she will decide tomorrow whether to use or not.
[2023-11-06] VITALS (11 sets, daily range): BP systolic 92–139; BP diastolic 42–89; PULSE 89–98; RESP 16–20; TEMP 36.2–37.5; O2SAT 89–97
[2023-11-06] MEDS: MORPHine 2 MG/ML SYR IVP (04:50)
[2023-11-06] MEDS: Levothyroxine 50 MCG TAB 25 MCG PO (06:20)
[2023-11-06 06:56] LABS: Abs Immature Grans 0.05 10^3/uL (0.0-0.06); Absolute Basophil Count 0.04 10^3/uL (0.0-0.2); Absolute Eosinophil Count 0.22 10^3/uL (0.0-0.7); Absolute Lymphocyte Count 0.71 10^3/uL (1.2-3.4); Absolute Monocyte Count 0.94 10^3/uL (0.1-0.8); Absolute Neutrophil Count 7.82 10^3/uL (1.2-6.7); Basophils % 0.4; Eosinophils % 2.2; HCT 35.3 % (36.0-46.0); Immature Grans % 0.5; Lymphocytes % 7.3; MCH 34.4 pg (27.0-33.0); MCV 101 fL (80-95); MPV 10.1 fL (8.0-11.0); Monocytes % 9.6; Platelet Count 219 10^3/uL (130-400); RBC 3.49 10^6/uL (3.93-5.22); RDW 14.8 % (11.7-14.6); RDW-SD 55.4 fL; WBC 9.78 10^3/uL (4.4-10.8)
[2023-11-06 07:23] LABS: ALT 67 U/L (14-59); AST 127 U/L (15-37); Alkaline Phosphatase 147 U/L (46-116); Anion Gap 10.3 mmol/L (3-11); BUN 13 mg/dL (7-18); Bilirubin, Total 1.7 mg/dL (0.2-1.0); CO2 28.7 mmol/L (21.0-32.0); Calcium 8.7 mg/dL (8.5-10.1); Chloride 102 mmol/L (98-107); Glucose 163 mg/dL (74-106); Sodium 141 mmol/L (136-145); TSH (W/Ref FT4) 2.93 uIU/mL (0.36-3.74); Total Protein 6.3 g/dL (6.4-8.2)
[2023-11-06 07:32] LABS: Potassium 3.7 mmol/L (3.5-5.1)
[2023-11-06] MEDS: Polyethylene Glycol 3350 17 GM PACKET PO (08:36)
[2023-11-06] MEDS: Magnesium Lactate-SR 84 MG TABCR PO (08:36)
[2023-11-06] MEDS: Lisinopril 5 MG TAB PO (08:37)
[2023-11-06] MEDS: Normal Saline Flush 10 ML SYR IVP ×2 (08:37→20:58)
[2023-11-06] MEDS: Mirabegron 50 MG TABCR PO (08:37)
[2023-11-06] MEDS: Citalopram 20 MG TAB PO (08:37)
[2023-11-06] MEDS: Gabapentin 100 MG CAP PO ×3 (08:37→20:57)
[2023-11-06] MEDS: Docusate Sodium 100 MG CAP PO ×3 (08:37→20:57)
[2023-11-06] MEDS: oxyCODONE 5 MG TAB PO ×2 (08:47→20:57)
[2023-11-06] MEDS: Patch Removal 1 EACH TP (08:50)
[2023-11-06] MEDS: Enoxaparin 40 MG/0.4 ML SYR SC (10:13)
[2023-11-06] MEDS: Lactated Ringers 1,000 ML 75 ML IV (10:13)
--- NOTE | 2023-11-06 10:26 | PDOC.CMIN ---
Date of service: 11/06/23 Time of Service: 10:26 Care Management Initial Assmt Initial Assessment REASON FOR HOSPITALIZATION:: Blunt head/chest trauma; multiple rib fx PREVIOUS FUNCTIONAL STATUS/SOCIAL/FAMILY SUPPORTS:: Janett lives in [place] with her , Esteban. They have been almost 60 years. They have two children who both live in [place]. She is a retired teacher. She is no longer independent with ADLs due to her cognitive decline. Her is her primary caregiver. CURRENT FUNCTIONAL STATUS:: Peg was resting when CM attempted to meet with her. Her , Esteban and daughter, Tammy, were in the room visiting. CM, Esteban and Tammy discussed Peg's fall which led her to this hospitalization, as she has multiple rib fractures. Esteban reported that he left Peg sleeping, and was not gone long, but when he returned, he found that she had tumbled down a few stairs. Esteban described how he takes care of Peg, including cooking/cleaning, and personal care. They have a stair lift and a walk in bathtub, although Tammy reported that washing in the tub has become more difficult for Peg, even with support. They have a person who comes once a week to clean the home. CM discussed potential discharge plans including SNF for short term rehab and home with HH support. Esteban stated that he would support whatever Peg needs. CM will send a referral to [facility] for additional support at home. Leda was not able to be evaluated by PT today due to her pain and because she was too tired to participate. CM will continue to follow. ADVANCE DIRECTIVES:: Not on file. Palliative has been consulted. Has patient been provided with info about the portal/API?: Yes Did the patient sign up for the portal?: No CODE STATUS:: Full Code INSURANCE COVERAGE / FINANCIAL ISSUES:: VBA CURRENT HOME/COMMUNITY SERVICES/EQUIPMENT:: [facility] PRIMARY CARE PHYSICIAN:: King Ramos POTENTIAL DISCHARGE NEEDS:: Evaluations for further needs, potential SNF placement, follow up appointments PATIENT/FAMILY EDUCATION NEEDS:: Review discharge instructions and limitations, discussion of self care needs including ask me three. ANTICIPATED BARRIERS TO DISCHARGE:: May require SNF placement TRANSPORTATION:: To be determined by disposition PLAN:: Peg will be evaluated by PT to help determine her level of functioning; awaiting recommendation to proceed with discharge planning. Anticipate Peg will require SNF for short term rehab. She will likely transport via private vehicle vs w/c van, depending on disposition. She will follow up with her PCP and discharge plan of care. CM will continue to follow. PFSH All Active Problems (Updated 11/06/23 @ 15:32 by Etta Fritz DO) Deformity of both feet (Acute) Elevated LFTs (Acute) Advanced dementia (Acute) Acute UTI (urinary tract infection) (Acute) Poor historian (Acute) Fall (on) (from) other stairs and steps, initial encounter (Acute) Immobility (Acute) Neurodegenerative cognitive impairment (Acute) DJD (degenerative joint disease), lumbar (Acute) History of endometrial cancer (Acute) Patient had a radical and SAMUEL/BSO for endometrial cancer and chemo in 2020 Scalp hematoma (Acute) Cerebral atrophy (Acute) Umbilical hernia (Acute) Spinal stenosis of lumbar region (Acute) Coronary artery calcification seen on CAT scan (Acute) Calcification of mitral valve (Acute) Atelectasis of both lungs (Acute) Multiple fractures of ribs, right side, initial encounter for closed fracture (Acute) Blunt trauma to chest (Acute) Blunt head trauma (Acute) Sleep apnea (Acute) Excessive cerumen in left ear canal (Acute) Folate deficiency anemia (Acute) Discharge planning issues (Acute) DVT prophylaxis (Acute) Ambulatory dysfunction (Acute) Obstructive sleep apnea (Chronic) Hypertension (Chronic) Urgency incontinence (Acute 11/05/16) Tinnitus (Acute 12/31/13) Sensorineural hearing loss, bilateral (Acute 12/31/13) Medical History (Updated 11/06/23 @ 15:32 by Etta Fritz DO) Hypomagnesemia Frequency of micturition (11/05/16) Abnormal vaginal bleeding Thickened endometrium Elevated troponin Mild cognitive impairment Hyponatremia Dehydration Acute respiratory failure with hypoxia Aspiration pneumonitis Sepsis Palliative care patient Onychomycosis Sensorineural hearing loss Hypercholesteremia Anxiety Depression Urinary incontinence Metabolic syndrome Hypothyroidism Diabetes mellitus type 2 in obese Neuropathy Vertigo Dysphagia Irregular bowel habits Dry mouth Low back pain Lordosis Frequent falls Surgical History Status post bilateral knee replacements Hx of cholecystectomy Family History Brother Heart disease Dementia Depression Father Heart disease Dementia Depression Mother Dementia Depression Social History Smoking/Tobacco Use Status: Never Smoking risk assessment performed?: Yes Alcohol Intake: current Alcohol Intake frequency: holidays/special occasions only Drug use: Never Substance use type: does not use Household members: spouse Housing: apartment What is your relationship status?: Panel score (0-1 are the most socially isolated patients): 1 Seatbelt use: always Do you feel safe at home: Yes Do you feel safe in your relationship?: Yes SDOH(Care Management) Screening Will the Patient Participate in the Screening?: Unable to obtain
--- NOTE | 2023-11-06 10:30 | PHA.REVIEW2 ---
Pharmacy Admission Review Admission Clinical Review Admission Pharmacy Review: Acute UTI (urinary tract infection) (Acute) Poor historian (Acute) Fall (on) (from) other stairs and steps, initial encounter (Acute) Immobility (Acute) Neurodegenerative cognitive impairment (Acute) DJD (degenerative joint disease), lumbar (Acute) History of endometrial cancer (Acute) Scalp hematoma (Acute) Cerebral atrophy (Acute) Umbilical hernia (Acute) Spinal stenosis of lumbar region (Acute) Coronary artery calcification seen on CAT scan (Acute) Calcification of mitral valve (Acute) Atelectasis of both lungs (Acute) Multiple fractures of ribs, right side, initial encounter for closed fracture (Acute) Blunt trauma to chest (Acute) Blunt head trauma (Acute) DVT prophylaxis (Acute) Ambulatory dysfunction (Acute) Urgency incontinence (Acute 11/05/16) Sensorineural hearing loss, bilateral (Acute 12/31/13) No Known Allergies Allergy (Unverified 11/05/23 13:45) Resuscitation Status Full Code Height 5 ft 7 in Weight 108.5 kg Pharmacy Admission Review Renal Dosing Renal Dosing: BUN 13 mg/dL (7-18) 11/06/23 06:06 Creatinine 1.0 mg/dL (0.55-1.02) 11/06/23 06:06 Medications needing adjustments: Reviewed (CrCl 54.06 mL/min) List of meds needing interventions: Current medications are okay Anticoagulation Anticoagulation: Hgb 12.0 g/dL (11.2-15.7) D 11/06/23 06:06 Hct 35.3 % (36.0-46.0) L 11/06/23 06:06 Plt Count 219 10^3/uL (130-400) 11/06/23 06:06 INR 1.0 (0.9-1.1) 11/05/23 13:50 Creatinine 1.0 mg/dL (0.55-1.02) 11/06/23 06:06 DVT Prophylaxis: Reviewed Medications: Enoxaparin (40mg daily) Opiate Usage Evaluate Pain Scale/Pains Meds: Reviewed (PRN morphine and oxycodone) Scheduled Bowel Reg ordered if on Opiates?: Yes (Miralax and docusate) Relevant Labs Relevant Labs: Sodium 141 mmol/L (136-145) 11/06/23 06:06 Potassium 3.7 mmol/L (3.5-5.1) D 11/06/23 06:06 Chloride 102 mmol/L (98-107) 11/06/23 06:06 Electrolytes, C-Reactive P, ESR: Reviewed (Hgb decreased from 14.5 to 12, AST/ALT increased from 23/22 to 127/67) DM Control DM Control: Glucose 163 mg/dL (74-106) H 11/06/23 06:06 Hemoglobin A1c 7.1 % (<5.7) H 11/05/23 20:00 DM Control: Reviewed Insulin Dosing, Diabetic Medication: No formal diagnosis of diabetes up to this point but A1c 7.1% Cardiac Review BP, HR, EF%: Reviewed (BP WNL, HR 94) QTc Review QTc: Reviewed (476 on 11/05/23) IV to PO Switch IV Medications: Reviewed (Ondansetron and ceftriaxone) Home Meds Home Med List reviewed: Reviewed Relevent Home Meds Not ordered & why?: Atorvastatin, folic acid, vitamin B complex and vitamin D3 Current Meds Current Medication Order Review: Reviewed Comments: Patients AST/ALT labs were increased today. Myrbetriq can cause increased liver enzymes but patient has been on this medication for quite a while. Consider alternative if liver enzymes continue to be elevated or increase further. Pharmacy Antibiotic Review Pharmacy Antibiotic Activity: C/S review and Reviewed, no change Comments: Patient is on ceftriaxone day 1 for suspected UTI. WBC decreased from 14.41 to 9.78. Urine culture pending.
[2023-11-06] MEDS: Acetaminophen 500 MG TAB 1000 MG PO ×2 (11:28→20:57)
[2023-11-06] MEDS: MORPHine 10 MG/ML VIAL 4 MG IVP (11:29)
--- NOTE | 2023-11-06 12:45 | ANES.NERVE_ITS ---
Nerve Block Single Injection Procedure Date and Time Date Performed: 11/06/23 Procedure Start: 12:15 Location Where Procedure Performed Procedure Location: Med/Surg Reason Performed: Acute Pain Management Pain Diagnosis: Chest Pain and Rib Pain Requesting Provider: Etta Fritz Timeout Performed Timeout Performed: Yes Monitoring Used ECG, Blood Pressure, SpO2 and See EMR for corresponding vital signs Sterility Sterility: Hand Hygiene, Surgical Cap, Surgical Mask, Sterile Gloves and Chlorhexidine Sedation Given During Procedure Sedation Given (Indicate Dose Given): No Sedation given Patient Mental Status Patient Mental Status: Awake Nerve Block 1st Nerve Block: Laterality: Right Block Type: Erector Spinae (Upper) Ultrasound Image Saved?: Yes Needle / Catheter Used: 100mm SonoPlex II Local Anesthetic Bolus (Indicate Dose Given): Lidocaine used for local infiltration of skin, Injected in 3-5ml increments after negative blood aspiration, Bupivacaine 0.5% Dose:: 20ml and Exparel Dose:: 10ml Additives (Indicate Dose Given): None Ultrasound: Sterile probe cover and gel used Nerve Stimulator: Not Used Paresthesia: None Procedure Tolerated: No Complications and Patient tolerated well Procedure Outcome: Successful Procedure Comment: Challenging view. Took our time until bone contact made. Medication injection with what appears to be plane spread. Family states patient seems more comfortable now. She is able to lift right arm up slightly still with some discomfort, but when asked says she is comfortable. Will be monitored for an additional 20 minutes. Also discussed with RN that as block sets up, previous morphine administration may become more pronounced and to keep an eye out and assess mental status. Pt. on supplemental oxygen. Started with procedure at 89- 90% and is now 90-91% on Room air before NC oxygen. Performed By: Sim Shaw
--- NOTE | 2023-11-06 12:55 | PGE_ITS ---
Date of Service Date of service: 11/06/23 Time of Service: 12:55 Assessment and Plan Assessment and plan (1) Advanced dementia: Status: Acute (2) Ambulatory dysfunction: Status: Acute Assessment and plan: Patient is very debilitated and is not safe to go home at this time. She is going to need placement for short-term rehab versus other. Patient is a full code Palliative care consulted. Patient has seen them in the past. Daughter is very involved and parents care/and is very understanding of the situation. She does not live locally (3) Immobility: Status: Acute Assessment and plan: PT consulted (4) Obstructive sleep apnea: Status: Chronic Assessment and plan: Patient will not wear CPAP (5) Atelectasis of both lungs: Status: Acute Assessment and plan: Encourage pulmonary toilet Chest x-ray in a.m. (6) Diabetes mellitus type 2 in obese: Assessment and plan: A1c is 7 Patient not currently on any medication (7) Hypothyroidism: (8) DJD (degenerative joint disease), lumbar: Status: Acute (9) Spinal stenosis of lumbar region: Status: Acute (10) Blunt head trauma: Status: Acute (11) Neurodegenerative cognitive impairment: Status: Acute (12) Cerebral atrophy: Status: Acute (13) Scalp hematoma: Status: Acute (14) Fall (on) (from) other stairs and steps, initial encounter: Status: Acute (15) Blunt trauma to chest: Status: Acute Assessment and plan: Stable Hospitalist will see patient for medical management (16) Multiple fractures of ribs, right side, initial encounter for closed fracture: Status: Acute Assessment and plan: Pain management protocol Rib blocks done by anesthesia (17) History of endometrial cancer: Status: Acute Assessment and plan: Radical SAMUEL/BSO in 2020. She did have chemo. Area of uncertainty near the bladder, on CT noted. Could be recurrent disease. Not widespread. (18) Acute UTI (urinary tract infection): Status: Acute Assessment and plan: E. coli. Patient has a history of E. coli UTIs. MAC not available yet On ceftriaxone (19) Urgency incontinence: Status: Acute (20) Umbilical hernia: Status: Acute (21) Sensorineural hearing loss, bilateral: Status: Acute (22) DVT prophylaxis: Status: Acute (23) Coronary artery calcification seen on CAT scan: Status: Acute (24) Calcification of mitral valve: Status: Acute (25) Hypertension: Status: Chronic (26) Discharge planning issues: Status: Acute (27) Tinnitus: Status: Acute (28) Elevated LFTs: Status: Acute Assessment and plan: - Uncertainty of relevance. Patient has no abdominal pain. Patient has had an elevated alk phos for some time. Will check ultrasound in a.m. for completeness Does not have surgical abdomen This document was created with voice activated software and may contain errors. 40 mins spent with the patient today. (29) Deformity of both feet: Status: Acute Subjective Subjective Interval history since last seen: Patient cannot provide any history. She seems to be in quite a bit of pain. Nursing came in medicated her. Anesthesia will be coming to do rib blocks. Urine appears concentrated. Patient is not having any abdominal pain. She complains of right shoulder pain. pt not able to give must hx. Most info taken from RN. Pt did not eat much. Urine concentrated. no BM Exam Const General: in distress, anxious and frail appearing Nutritional Appearance: overweight Orientation: oriented to person Other: PHYSICAL EXAM HEAD, EYES, EARS, NECK, THROAT: Head is normocephalic, pupils equal, round, reactive to light and accommodation, ocular movement intact, sclera clear and no jaundice. ?Dentition intact. No ? No jaw pain. LUNGS: normal respiration/normal chest excursion. ?Clear to auscultation bilaterally. ?No wheeze. ?HEART: Regular rate and rhythm. no murmurs EXTREMITY: No edema deformity of feet/toes.? ABDOMEN: soft and non-tender to palpation.? Normal bowel sounds.? Objective Last Vital Signs Temp 36.6 C 11/06/23 12:13 Pulse 95 H 11/06/23 12:40 Resp 20 11/06/23 12:40 BP 113/89 11/06/23 12:40 Pulse Ox 93 11/06/23 12:40 Laboratory Results - last 24 hr 11/05/23 11/05/23 11/05/23 13:50 19:20 20:00 WBC 14.41 H RBC 4.15 Hgb 14.5 Hct 42.6 MCV 103 H MCH 34.9 H MCHC 34.0 RDW 14.6 Plt Count 239 MPV 9.8 Immature Gran % 1.2 Neutrophils % 85.4 Lymphocytes % 3.5 Monocytes % 5.8 Eosinophils % 3.8 Basophils % 0.3 Nucleated RBC % 0.0 Absolute Neutrophils 12.31 H Absolute Lymphocytes 0.50 L Absolute Monocytes 0.84 H Absolute Eosinophils 0.55 Absolute Basophils 0.04 PT 10.3 INR 1.0 APTT 25.0 Sodium 139 Potassium 4.7 Chloride 101 Carbon Dioxide 31.1 Anion Gap 6.9 BUN 14 Creatinine 1.1 H Est GFR (CKD-EPI 2020) 49.86 Glucose 213 H Hemoglobin A1c 7.1 H Calcium 9.4 Total Bilirubin 1.1 H AST 23 ALT 22 Alkaline Phosphatase 167 H Total Protein 7.6 Albumin 3.7 Lipase 19 TSH Urine Color Yellow Urine Clarity Clear Urine pH 6.5 Ur Specific Rembrandt 1.015 Urine Protein 100 H Urine Ketones 15 H Urine Blood Small H Urine Nitrite Negative Urine Bilirubin Negative Urine Urobilinogen 0.2 Ur Leukocyte Esterase Negative Urine RBC 5-10 H Urine WBC 5-10 Ur Epithelial Cells Rare Urine Crystals Negative Urine Bacteria Rare Urine Casts Negative Urine Mucus Trace Ur Culture Indicated? Yes Urine Glucose Negative 11/06/23 06:06 WBC 9.78 RBC 3.49 L Hgb 12.0 D Hct 35.3 L MCV 101 H MCH 34.4 H MCHC 34.0 RDW 14.8 H Plt Count 219 MPV 10.1 Immature Gran % 0.5 Neutrophils % 80.0 Lymphocytes % 7.3 Monocytes % 9.6 Eosinophils % 2.2 Basophils % 0.4 Nucleated RBC % 0.0 Absolute Neutrophils 7.82 H Absolute Lymphocytes 0.71 L Absolute Monocytes 0.94 H Absolute Eosinophils 0.22 Absolute Basophils 0.04 PT INR APTT Sodium 141 Potassium 3.7 D Chloride 102 Carbon Dioxide 28.7 Anion Gap 10.3 BUN 13 Creatinine 1.0 Est GFR (CKD-EPI 2020) 55.90 Glucose 163 H Hemoglobin A1c Calcium 8.7 Total Bilirubin 1.7 H AST 127 H ALT 67 H Alkaline Phosphatase 147 H Total Protein 6.3 L Albumin 3.0 L Lipase TSH 2.93 Urine Color Urine Clarity Urine pH Ur Specific Rembrandt Urine Protein Urine Ketones Urine Blood Urine Nitrite Urine Bilirubin Urine Urobilinogen Ur Leukocyte Esterase Urine RBC Urine WBC Ur Epithelial Cells Urine Crystals Urine Bacteria Urine Casts Urine Mucus Ur Culture Indicated? Urine Glucose Time Spent with Patient Time Spent with Patient: 35-49 minutes Time was spent: preparing to see the patient(eg.review tests), obtaining and/or reviewing separately [facility], ordering medications,tests, procedures, referring, communicating with other health healthcare consulting manager, indepentently interpreting results, counseling the patient and care coordination
--- NOTE | 2023-11-06 14:26 | NT_ITS ---
PT Notes Visit Reasons: blunt head/chest trauma/mult rib fx Patient in deep sleep. Daughter Tammy and preferred to wait until tomor row morning for PT evaluation to allow patient to rest some more. Receptive to short-term rehab stay if needed. Nurse Urvashi made aware and in agreement of plan to see patient tomorrow.
[2023-11-06] MEDS: Normal Saline 250 ML IV (15:43)
[2023-11-06] MEDS: Lidocaine 5% Patch 1 PATCH TP (20:57)
[2023-11-06] MEDS: cefTRIAXone 2 GM/50 ML BAG IVPB (20:58)
[2023-11-07] VITALS (8 sets, daily range): BP systolic 88–126; BP diastolic 57–94; PULSE 92–102; RESP 17–20; TEMP 36.5–37.9; O2SAT 92–96
[2023-11-07] MEDS: MORPHine 2 MG/ML SYR IVP (01:39)
[2023-11-07] MEDS: Lactated Ringers 1,000 ML 82 ML IV ×2 (02:38→15:41)
[2023-11-07 06:51] LABS: Abs Immature Grans 0.07 10^3/uL (0.0-0.06); Absolute Basophil Count 0.06 10^3/uL (0.0-0.2); Absolute Eosinophil Count 0.43 10^3/uL (0.0-0.7); Absolute Lymphocyte Count 0.55 10^3/uL (1.2-3.4); Absolute Monocyte Count 1.09 10^3/uL (0.1-0.8); Absolute Neutrophil Count 6.92 10^3/uL (1.2-6.7); Basophils % 0.7; Eosinophils % 4.7; HCT 38.6 % (36.0-46.0); HGB 12.8 g/dL (11.2-15.7); Immature Grans % 0.8; MCH 34.7 pg (27.0-33.0); MCHC 33.2 % (32.0-36.0); MCV 105 fL (80-95); MPV 9.8 fL (8.0-11.0); Neutrophils % 75.8; Platelet Count 275 10^3/uL (130-400); RBC 3.69 10^6/uL (3.93-5.22); RDW 15.7 % (11.7-14.6); RDW-SD 60.1 fL; WBC 9.12 10^3/uL (4.4-10.8)
[2023-11-07 07:08] LABS: ALT 412 U/L (14-59); AST 428 U/L (15-37); Alkaline Phosphatase 333 U/L (46-116); Anion Gap 9.2 mmol/L (3-11); BUN 19 mg/dL (7-18); Bilirubin, Total 5.3 mg/dL (0.2-1.0); C-Reactive Protein 4.97 mg/dL (<or=0.5); CO2 28.8 mmol/L (21.0-32.0); CREATININE 1.6 mg/dL (0.55-1.02); Calcium 8.8 mg/dL (8.5-10.1); Chloride 102 mmol/L (98-107); GGT 536 U/L (5-55); Glucose 204 mg/dL (74-106); Potassium 4.4 mmol/L (3.5-5.1); Sodium 140 mmol/L (136-145); Total Protein 6.7 g/dL (6.4-8.2); Troponin I < 50 ng/L (< or =60)
--- NOTE | 2023-11-07 07:24 | W.PALLCONSUL ---
Date of service: 11/07/23 Time of Service: 07:25 History of Present Illness History of Present Illness Chief Complaint: Multiple rib fractures after a fall Narrative: Leda is an 83-year-old woman who has dementia. She was at her house when her left for a very short time and when he came back into the house he found her fallen with pain. She was transported to the hospital and found to have multiple rib fractures. She was treated in the ER and admitted to surgery because of the number of fractions. Presently she is doing better but requires placement due to pain control, needs for caring for her etc.etc. I was asked to do a palliative consult for advanced care planning Consults Consult date: 11/07/23 Requesting physician: Etta Fritz Assessment and Plan Assessment and plan (1) Acute UTI (urinary tract infection): Status: Acute (2) Multiple fractures of ribs, right side, initial encounter for closed fracture: Status: Acute (3) Scalp hematoma: Status: Acute (4) Neurodegenerative cognitive impairment: Status: Acute Assessment and plan: neurodegenerative dementia?will need to talk to about advanced care planning UTI being treated by admitting physician Pain I am concerned about this she appears to be in pain and staff states that she cries out whenever they try to move her. I would expect that she will have pain for quite some time given her fractures and her cognitive abilities. It may be diaz to move to a long acting medication such as MS Contin 15 mg twice daily and then treat with immediate release as needed. That way she would have long-acting on board. She did have a nerve block yesterday that may be very helpful. Unfortunately what I saw today was someone who is still in pain Placement?in progress Will speak to and hopefully meet with them so that we can discuss CODE STATUS called Leda's home and spoke at length to daughter (cell phone [phone]). She worked on EMS and understands the need for advanced care planning. SHe also relayed that her Dad was even reluctant to appoint a DPOA so it will be a tough conversation. I agreed to come in after 4PM or do a telehealth visit. I reminded the daughter that doing CPR on a person with broken ribs would be very painfill and could result in a punctured lung. DAughter is aware of this. 3:30: Called daughter [phone]. She and her dad talked. After a long discussion her dad said Peg would want everything done even though CPR would be painful and cause further damage. One slight improvement would be that her dad is willing to consider appointing a DPOA for medical decision making. She did give her dad my number if he wants further discussion. Review of Systems Narrative: Was unable to give me a review of systems. She said yes to everything but when I asked a question that required an answer other than yes and no PFSH All Active Problems (Updated 11/06/23 @ 15:32 by Etta Fritz DO) Deformity of both feet (Acute) Elevated LFTs (Acute) Advanced dementia (Acute) Acute UTI (urinary tract infection) (Acute) Poor historian (Acute) Fall (on) (from) other stairs and steps, initial encounter (Acute) Immobility (Acute) Neurodegenerative cognitive impairment (Acute) DJD (degenerative joint disease), lumbar (Acute) History of endometrial cancer (Acute) Patient had a radical and SAMUEL/BSO for endometrial cancer and chemo in 2020 Scalp hematoma (Acute) Cerebral atrophy (Acute) Umbilical hernia (Acute) Spinal stenosis of lumbar region (Acute) Coronary artery calcification seen on CAT scan (Acute) Calcification of mitral valve (Acute) Atelectasis of both lungs (Acute) Multiple fractures of ribs, right side, initial encounter for closed fracture (Acute) Blunt trauma to chest (Acute) Blunt head trauma (Acute) Sleep apnea (Acute) Excessive cerumen in left ear canal (Acute) Folate deficiency anemia (Acute) Discharge planning issues (Acute) DVT prophylaxis (Acute) Ambulatory dysfunction (Acute) Obstructive sleep apnea (Chronic) Hypertension (Chronic) Urgency incontinence (Acute 11/05/16) Tinnitus (Acute 12/31/13) Sensorineural hearing loss, bilateral (Acute 12/31/13) Medical History (Updated 11/06/23 @ 15:32 by Etta Fritz DO) Acute respiratory failure with hypoxia Aspiration pneumonitis Palliative care patient Elevated troponin Hyponatremia Hypomagnesemia Dehydration Sepsis Thickened endometrium Abnormal vaginal bleeding Mild cognitive impairment Onychomycosis Sensorineural hearing loss Hypercholesteremia Anxiety Depression Urinary incontinence Metabolic syndrome Hypothyroidism Diabetes mellitus type 2 in obese Neuropathy Vertigo Dysphagia Irregular bowel habits Dry mouth Low back pain Lordosis Frequent falls Frequency of micturition (11/05/16) Surgical History Status post bilateral knee replacements Hx of cholecystectomy Family History Brother Heart disease Dementia Depression Father Heart disease Dementia Depression Mother Dementia Depression Social History Smoking/Tobacco Use Status: Never Smoking risk assessment performed?: Yes Alcohol Intake: current Alcohol Intake frequency: holidays/special occasions only Drug use: Never Substance use type: does not use Household members: spouse Housing: apartment What is your relationship status?: Panel score (0-1 are the most socially isolated patients): 1 Seatbelt use: always Do you feel safe at home: Yes Do you feel safe in your relationship?: Yes Exam Narrative Exam Narrative: Peg looks to be in pain. Her forehead is furloughed. She said out out out when I moved her hand to test her oxygen saturation. She kept her eyes closed most of the time. she was tachycardic. She could not cooperate with the lung exam. She had multiple ecchymoses. Results Last Vital Signs Temp 97.7 F 11/07/23 04:43 Pulse 99 H 11/07/23 04:43 Resp 18 11/07/23 04:43 BP 110/70 11/07/23 06:48 Pulse Ox 92 11/07/23 04:43 O2 sat when I took it was 96% Laboratory Tests 11/06/23 11/07/23 06:06 06:10 Creatinine 1.[address]: IMPRESSION: 1. No acute intracranial process. 2. Subcutaneous edema overlying the high left parietal 3. No acute fracture or subluxation in the cervical spine. CT C/A/P IMPRESSION: 1. Multiple nondisplaced to mildly displaced right rib fractures. 2. Nondisplaced fracture through the base of the right coracoid process. 3. No evidence of a pneumothorax or pleural effusion. 4. No evidence of an acute abdominal or pelvic organ injury. 5. Cystic structures seen in the pelvis as described above. For further characterization of the structures, pelvic ultrasound may be considered for further evaluation. MRI may be obtained if clinically appropriate. reviewed shoulder and wrist xrays: severe degenerative changes Labs 11/07/23 06:10 11/07/23 06:10 Labs: Laboratory Results - last 24 hr 11/06/23 11/07/23 06:06 06:10 WBC 9.12 RBC 3.69 L Hgb 12.8 Hct 38.6 MCV 105 H D MCH 34.7 H MCHC 33.2 RDW 15.7 H Plt Count 275 MPV 9.8 Immature Gran % 0.8 Neutrophils % 75.8 Lymphocytes % 6.0 Monocytes % 12.0 Eosinophils % 4.7 Basophils % 0.7 Nucleated RBC % 0.0 Absolute Neutrophils 6.92 H Absolute Lymphocytes 0.55 L Absolute Monocytes 1.09 H Absolute Eosinophils 0.43 Absolute Basophils 0.06 Sodium 141 140 Potassium 3.7 D 4.4 Chloride 102 102 Carbon Dioxide 28.7 28.8 Anion Gap 10.3 9.2 BUN 13 19 H Creatinine 1.0 1.6 H Est GFR (CKD-EPI 2020) 55.90 31.80 Glucose 163 H 204 H Calcium 8.7 8.8 Total Bilirubin 1.7 H 5.3 H GGT 536 H AST 127 H 428 H ALT 67 H 412 H Alkaline Phosphatase 147 H 333 H Troponin I < 50 C-Reactive Protein 4.97 H Total Protein 6.3 L 6.7 Albumin 3.0 L 3.0 L TSH 2.93
--- NOTE | 2023-11-07 08:00 | DI.US_ITS ---
Exam(s) US ABDOMEN EXAM: US ABDOMEN CLINICAL HISTORY: attn GB/do whole abdomen /elevated LFT/decreased C TECHNIQUE: Ultrasound abdomen performed using standard protocol. COMPARISON: CT CT CHEST/ABD/PEL W from 11/05/2023 FINDINGS: ABDOMINAL AORTA AND IVC: Visualized portions normal caliber. PANCREAS: Normal where visualized. LIVER: There is increased echogenicity of the liver consistent with fatty infiltration. The liver me asures 14.6 cm long. Hepatopetal flow in the Portal Vein. GALLBLADDER:Status post cholecystectomy. No biliary ductal dilatation. BILIARY SYSTEM: Common bile duct measures < 7 mm. No intrahepatic biliary ductal dilation. KIDNEYS: Kidneys are symmetric in size. No evidence of renal calculi. No evidence of hydronephrosis. No renal mass or cyst identified. SPLEEN: Not enlarged. ASCITES: None seen. IMPRESSION: 1. Examination was limited due to patient's inability to sustain breath holds. 2. Fatty infiltration of the liver. 3. Status post cholecystectomy. No biliary ductal dilatation. DATA REPOSITORY:
--- NOTE | 2023-11-07 09:20 | DI.RAD_ITS ---
Exam(s) XR CHEST 2V PA LATERAL EXAM: XR CHEST 2V PA LATERAL CLINICAL HISTORY: fall/rib Fx/atelectasis/fever TECHNIQUE: 2D digital imaging was performed of the chest. Three images were obtained. PA and later al views were obtained. COMPARISON: CR,XR XR CHEST 2V PA LATERAL from 06/28/2021 FINDINGS: Examination limited by patient body habitus. There is also poor inspiration with elevation of the ri ght hemidiaphragm. MEDIASTINUM: Normal. HEART: Upper limits of normal in size considering the AP projection. PULMONARY VASCULATURE: Normal. There is crowding of the pulmonary vasculature. LUNGS: Clear. PLEURAL SPACE: No pleural effusion or pneumothorax. BONE:Within normal limits for the patient's age. OTHER FINDINGS:Normal. IMPRESSION: 1. Examination is limited by patient body habitus and poor inspiration. 2. No definite acute pulmonary process. 3. If there is concern for rib injury, rib films should be obtained for further evaluation. DATA REPOSITORY: RADIATION DOSE DELIVERED:
[2023-11-07] MEDS: Normal Saline Flush 10 ML SYR IVP (10:14)
[2023-11-07] MEDS: Polyethylene Glycol 3350 17 GM PACKET PO (10:15)
[2023-11-07] MEDS: Gabapentin 100 MG CAP PO (10:15)
[2023-11-07] MEDS: Mirabegron 50 MG TABCR PO (10:15)
[2023-11-07] MEDS: Citalopram 20 MG TAB PO (10:15)
[2023-11-07] MEDS: Magnesium Lactate-SR 84 MG TABCR PO (10:15)
[2023-11-07] MEDS: Enoxaparin 40 MG/0.4 ML SYR SC (10:15)
[2023-11-07] MEDS: Lisinopril 5 MG TAB PO (10:15)
[2023-11-07] MEDS: Acetaminophen 500 MG TAB 1000 MG PO (10:16)
[2023-11-07] MEDS: Patch Removal 1 EACH TP (10:16)
[2023-11-07] MEDS: Docusate Sodium 100 MG CAP PO ×2 (10:16→13:31)
[2023-11-07] MEDS: Baclofen 10 MG TAB PO (12:55)
--- NOTE | 2023-11-07 12:56 | CMPROGNOTE_ITS ---
Date of service: 11/07/23 Time of Service: 12:56 Care Management Progress Note Progress Note Text Progress Note Text: S/O: Leda was sitting up in her chair when CM met with her. She had just worked with PT, who was still in the room, and stated that Peg needed the support from 2-3 people for ambulation, therefore the discharge recommendation from PT would be SNF for short term rehab. Leda did not open her eyes during the conversation, and minimally responded. Later, Esteban was present in the room, and CM reviewed the discharge recommendations with him, and he agreed that short term rehab is necessary prior to returning home. Esteban stated that [facility] is his first choice, as it is the closest to their home. He would also like referrals to be sent to the [facility]. CM will send the referrals, as requested. CM will continue to follow. A: Leda is an 83 year old female admitted to [facility] on 11/05/23 for blunt head/chest trauma, multiple rib fractures. P: Leda will be evaluated by PT to help determine her level of functioning; awaiting recommendation to proceed with discharge planning. Anticipate Peg will require SNF for short term rehab. She will likely transport via private vehicle vs w/c van, depending on disposition. She will follow up with her PCP and discharge plan of care. CM will continue to follow. SDOH(Care Management) Screening Will the Patient Participate in the Screening?: Unable to obtain
[2023-11-07 13:03] LABS: INR 1.1 (0.9-1.1); Prothrombin Time 11.1 sec (9.1-11.1)
[2023-11-07 13:09] LABS: Bilirubin, Direct 3.6 mg/dL (0.0-0.2)
--- NOTE | 2023-11-07 13:11 | W.NUTCONSULT ---
Date of service: 11/07/23 Time of Service: 12:10 Nutritional Consult ASSESSMENT: nutrition consult received re: pt with dementia not eating well Visited pt twice today and both attempt pt sleeping - also noted to be poor historian due to advanced dementia. Did talk with with her esteban who states he hasn't notice wt loss, or any physical changes to her muscle tone or adiposity. trace to 1+ edema noted by nursing over admission might lead to subtle elevated weight which does show an increase over the last year. Albumin low, total protein wnl and elevated CRP suggested inflammation more then malnutrition. Esteban reports decreased intake lately. Pt sleeping so did not perform Nutrition focused physical exam. calorie count initiated for 3 days starting at breakfast this morning - was npo at breakfast and lunch tray was untouched when taken out except for ~75% taken of ONS (boost breeze) I took food preferences fro Will encourage custards, ONS drinks, meat entrees. estimated nutrition needs : 1887kcals (REEx 1.2AF), 73g protein (1.2g/kg of IBW), 1887 mL fluid (1 mL per required kcal) NUTRITIONAL DIAGNOSIS: Inadequate intake related to acute illness and advanced dementia as evidenced by esteban's interview and lack of intake today with only 187kcals taken and <5g protein between 2 meals today. INTERVENTION: will offer ONS drinks on each meal tray and continue 3 day calorie count to estimate how close intake is meeting estimated nutrition needs. Recommend liquid protein concentrate TID to help provide 45g daily protein. MONITORING AND EVALUATION: will monitor intake via kcal count, weight, labs, Time Spent in Nutritional Counseling and Treatment: 15 minutes
[2023-11-07 13:12] LABS: Calculated LDL 48 mg/dL (<100); Cholesterol 101 mg/dL (<200); HDL Cholesterol 38 mg/dL (40-60); LDH 276 U/L (81-234); Lipase 282 U/L (16-77); Triglyceride 78 mg/dL (<150)
--- NOTE | 2023-11-07 13:41 | IN_ITS ---
PT Notes Visit Reasons: Blunt Head/Chest Trauma/Mult Rib Fx/Scalp Lacerati Physical Therapy Inpatient Initial Evaluation Date: 11/07/2023 Referring Doctor: Etta Fritz MD PT Orders: PT CONSULT: Fall at home. Multiple rib fractures. Patient has dementia. Precautions: Fall. Standard. Activity as tolerated. Patient Profile/Admitting Diagnosis: Patient is a an 83-year-old female who presented to the ED on 11/05/2023 due to a fall at home. Patient sustained multiple non-displaced to mildly displaced R rib fractures and non-displaced R coracoid fracturea as seen through CT scan yesterday.. She also is admitted for management of blunt head trauma, mitral valve calcification, CAD, snsorineural hearing loss, FAUSTO, ambulatory dysfunctiona, hypercholesterolemia, anxiety, depression, acute UTI, and neurodegenerative cognitive impairment. PMHX: All Active Problems (Updated 11/06/23 @ 15:32 by Etta Fritz DO) Deformity of both feet (Acute) Elevated LFTs (Acute) Advanced dementia (Acute) Acute UTI (urinary tract infection) (Acute) Poor historian (Acute) Fall (on) (from) other stairs and steps, initial encounter (Acute) Immobility (Acute) Neurodegenerative cognitive impairment (Acute) DJD (degenerative joint disease), lumbar (Acute) History of endometrial cancer (Acute) Patient had a radical and SAMUEL/BSO for endometrial cancer and chemo in calp hematoma (Acute) Cerebral atrophy (Acute) Umbilical hernia (Acute) Spinal stenosis of lumbar region (Acute) Coronary artery calcification seen on CAT scan (Acute) Calcification of mitral valve (Acute) Atelectasis of both lungs (Acute) Multiple fractures of ribs, right side, initial encounter for closed fracture (Acute) Blunt trauma to chest (Acute) Blunt head trauma (Acute) Sleep apnea (Acute) Excessive cerumen in left ear canal (Acute) Folate deficiency anemia (Acute) Discharge planning issues (Acute) DVT prophylaxis (Acute) Ambulatory dysfunction (Acute) Obstructive sleep apnea (Chronic) Hypertension (Chronic) Urgency incontinence (Acute 11/05/16) Tinnitus (Acute 12/31/13) Sensorineural hearing loss, bilateral (Acute 12/31/13) Medical History (Updated 11/06/23 @ 15:32 by Etta Fritz DO) Hypomagnesemia Frequency of micturition (11/05/16) Abnormal vaginal bleeding Thickened endometrium Elevated troponin Mild cognitive impairment Hyponatremia Dehydration Acute respiratory failure with hypoxia Aspiration pneumonitis Sepsis Palliative care patient Onychomycosis Sensorineural hearing loss Hypercholesteremia Anxiety Depression Urinary incontinence Metabolic syndrome Hypothyroidism Diabetes mellitus type 2 in obese Neuropathy Vertigo Dysphagia Irregular bowel habits Dry mouth Low back pain Lordosis Frequent falls Surgical History Status post bilateral knee replacements Hx of cholecystectomy Social History/Home Situation: Patient is a poor historin due to preexisting dementia, appears to be confused. Daughter Tammy said yesterday that patient is supervised with use of stair lift to the second floor of the house. Daughter adds that patient has had significant decline with walking and furniture walks mostly. Equipment Owned/DME: FWW, stair lift Subjective: Now more alert compared to yesterday. Agreed to trying to ge out of bed so hre sheets could be changed. Complained of head being itchy. Nurse Urvashi aware. Objective: General Observation: Telemetry monitoring in place. High BMI. IV in left UE. earl catheter in place. Mental Status: Alert but only oreinted to self and family. Able to follow singel-step commands. Pain: Moderate pain in R side of chaest and R shoulder. Groans when R ar is moved. Vital Signs: Closely monitored by nursing staff and have been WNL ROM: Right Upper Extremity: Shoulder Flexion allows up to 30 degrees. Shoulder abduction allows up to 30 degrees. Elbow flexion WFL. Wrist flexion WFL. Functional opening and closing of hand WFL. Left Upper Extremity: Shoulder Flexion WFL. Shoulder abduction WFL. Elbow flexion WFL. Wrist flexion NT due to IV splint in L UE. Functional opening and closing of hand WFL. Right Lower Extremity: Hip flexion WFL. Hip abduction WFL. Knee flexion WFL. Ankle dorsiflexion to neutral only. Ankle plantarflexion WFL. Left Lower Extremity: Hip flexion WFL. Hip abduction WFL. Knee flexion WFL. Ankle dorsiflexion to neutral only. Ankle plantarflexion WFL. Strength: Right Upper Extremity: Shoulder flexors 3-/5. Shoulder abductors 3-/5. Elbow flexors 3/5. Elbow extensors 3/5. Entry Level Manager strong. Left Upper Extremity: Shoulder flexors 3/5. Shoulder abductors 3/5. Elbow flexo rs 3/5. Elbow extensors 3/5. Entry Level Manager strong. Right Lower Extremity: Hip flexors 3+/5. Hip abductors 3+/5. Knee flexors 3+/5. Knee extensors 3+/5. Ankle dorsiflexors 3+/5. Ankle plantarflexors 3+/5. Left Lower Extremity: Hip flexors 3+/5. Hip abductors 3+/5. Knee flexors 3+/5. Knee extensors 3+/5. Ankle dorsiflexors 3+/5. Ankle plantarflexors 3+/5. Bed Mobility/Transfers: Maximal cueing provided for use of B hands as needed for support, movement sequence, AD management, and posture to reduce fall risk and minimize pain report Supine to sit with moderate assist of PT Doris and Nurse Urvashi, moderate cues for safe/correct technique Sit to stand with moderate assist of 2 and minimal assist of Nurse Pedro, moderate cues for safe/correct technique Stand to sit with moderate assist of PT Doris and Nurse Landin, moderate cues for safe/correct technique Bed to reclining moderate assist of PT Doris and Nurse Urvashi, LIBRARY TECHNICAL ASSISTANT Grace assisting, moderate cues for safe/correct technique Gait: 4-5 small steps with maximal verbal cueing for hand placement, limb advancement, AD management, and directional changes to reduce fall risk and minimize pain report. Moderate assist of PT Doris and Nurse Urvashi, LIBRARY TECHNICAL ASSISTANT Grace assisting. Patient appeared highly anxious and reported pain in side of chest and the R upper extremity. Balance: Static Sitting: Fair Dynamic Sitting: Fair Static Standing: Unable Dynamic Standing: Unable Special Tests: Mobility Limitations Standardized Measure [facility] AM-PAC 6 clicks Basic Mobility Inpatient Short Form: Raw Score: 8 CMS Score: 87% deficit Informed Consent/Education: Patient was instructed in purpose of PT consult and plan of care. Agreeable to proceed with established PT POC to achieve personal goals. Assessment: Fearfulness of falling, mild to moderate confusion, generalized weakness, and pain in R side of chest and R upper extremity limiting ability to perform mobility ADLs at this time. Patient will require assist of 2 for all transfers to reduce fall risk and ensure staff safety. Patient presents with clinical signs and symptoms consistent with current/admitting diagnoses that have resul kimmie to mobility limitations, gait instability, generalized weakness, and overall ADL decline as demonstrated by the following impairment level findings: 1. Decreased strength to B UE/LE major muscle groups 2. Impaired sitting/standing balance 3. Impaired activity tolerance 4. Shortness of breath 5. Pain in the R side of chest and R upper extremity 6. Fearfulness of falling Impairments are contributing to the following functional limitations: 1. Decline in bed mobility skills 2. Decline in transfer skills 3. Inability to perform ambulation 4. Increased completion time for mobility ADL performance 5. Increased risk for falls 6. Difficulty with managing steps alone safely Patient is assessed as a 88867 moderate complexity based on the following: History: 83-year-old female with past medical history as indicated above Examination: Demonstrable impairment in strength, balance, and mobility level with underlying impairments and functional limitations as exhibited above as wel l as deficit score of 87% utilizing the [facility] Mobility Inpatient Short Form Presentation: Evolving Decision Makin moderate complexity Goals: Goals X1 week 1. Supine-Sit minimal assist 2. Sit-Supine minimal assist 3. Sit-Stand minimal assist 4. Stand-Sit minimal assist with FWW 5. Bed-Chair minimal assist with FWW 6. Chair-Bed minimal assist with FWW 7. minimal assist for gait on level surface with use of FWW for at least 50 feet without report of pain nor dyspnea 8. Independent stair negotiation while holding onto B rails for at least 10 steps without report of pain nor dyspnea 9. Fair static and dynamic standing balance/tolerance Plan of Care/Treatment Plan: 1-2x/day, 7 days/week x 1 week. Plan of care has been reviewed with the ASSOCIATE PROFESSOR OF THEATRE providing the service under Physical Therapy direction. Initiate Physical Therapy intervention for pain management as needed, strengthening, bed mobility, transfers, gait, stairs, balance training, and use of assistive device. DISCHARGE RECOMMENDATIONS: [] Home with no services [] [] Home with services [specify] [] Home with outpatient PT [] [X] SNF for continued rehabilitation patient will benefit from retirement facility placement for continued skilled physical therapy services in order to progress mobility level, strength, and balance in preparation for a safe dis charge to home. [] [facility] [] [] SNF versus LTC based on ability to participate and progress [] TREATMENT CODE/TIME: 94782 x 20 minutes for 1 unit, 09632 x 14 minutes for 1 unit (13:41-14:15). Thank you for the opportunity to participate in the care of this patient. Hanna Borges PT, DPT, CLT [facility] [place], [place]
[2023-11-07 13:56] LABS: Creatine Kinase 225 U/L (26-192)
--- NOTE | 2023-11-07 16:01 | W.PM.PROGNOT ---
Date of Service Date of service: 11/07/23 Time of Service: 16:02 Assessment and Plan Assessment and plan (1) Elevated LFTs: Status: Acute Assessment and plan: - Uncertainty of relevance. -Patient has no abdominal pain. -Patient has had an elevated alk phos for some time. -RUQ US without acute findings -Does not have surgical abdomen -Tbili now up to 5.3, with increasing AST and ALT, conj bili 3.6m GGT 536, CK 225, lipase 282 -Lipid panel without significant abnormalities -Acetaminophen levels, 5'-nucleotidase, NAVEED, and hep panels all pending -will trend CMP, CK, CRP, and lipase in AM (2) Advanced dementia: Status: Acute (3) Ambulatory dysfunction: Status: Acute Assessment and plan: -Patient is very debilitated and is not safe to go home at this time. She is going to need placement for short-term rehab versus other. -Palliative care consulted; Patient has seen them in the past. Daughter is very involved and parents care/and is very understanding of the situation. -Apprecaite palliative discussion with family; patient remains full code at this time (4) Immobility: Status: Acute Assessment and plan: -apprecaite PT consultation; rec [facility] placement (5) Obstructive sleep apnea: Status: Chronic Assessment and plan: -Patient will not wear CPAP (6) Atelectasis of both lungs: Status: Acute Assessment and plan: -Encourage pulmonary toilet (7) Diabetes mellitus type 2 in obese: Assessment and plan: -A1c is 7 -Patient not currently on any medication (8) Hypothyroidism: (9) Blunt head trauma: Status: Acute (10) Blunt trauma to chest: Status: Acute Assessment and plan: -Stable (11) Multiple fractures of ribs, right side, initial encounter for closed fracture: Status: Acute Assessment and plan: -Pain management protocol -Rib blocks done by anesthesia (12) Acute UTI (urinary tract infection): Status: Acute Assessment and plan: -E. coli. Patient has a history of E. coli UTIs. MAC not available yet -continue ceftriaxone (13) Hypertension: Status: Chronic Assessment and plan: -continue home regimen Subjective Subjective Interval history since last seen: Patient able to state that she has no complaints or concerns at this time. Exam Narrative Exam Narrative: For elderly female laying in bed in no acute distress, oriented to person only, heart regular rhythm, lungs clear to auscultation bilaterally, abdomen soft, nontender, nondistended Objective Last Vital Signs Temp 100.2 F H 11/07/23 14:49 Pulse 97 H 11/07/23 14:49 Resp 20 11/07/23 14:49 BP 91/57 L 11/07/23 14:49 Pulse Ox 92 11/07/23 14:49 Laboratory Results - last 24 hr 11/07/23 11/07/23 11/07/23 06:10 12:30 Unknown WBC 9.12 RBC 3.69 L Hgb 12.8 Hct 38.6 MCV 105 H D MCH 34.7 H MCHC 33.2 RDW 15.7 H Plt Count 275 MPV 9.8 Immature Gran % 0.8 Neutrophils % 75.8 Lymphocytes % 6.0 Monocytes % 12.0 Eosinophils % 4.7 Basophils % 0.7 Nucleated RBC % 0.0 Absolute Neutrophils 6.92 H Absolute Lymphocytes 0.55 L Absolute Monocytes 1.09 H Absolute Eosinophils 0.43 Absolute Basophils 0.06 PT 11.1 INR 1.1 Sodium 140 Potassium 4.4 Chloride 102 Carbon Dioxide 28.8 Anion Gap 9.2 BUN 19 H Creatinine 1.6 H Est GFR (CKD-EPI 2020) 31.80 Glucose 204 H Calcium 8.8 Total Bilirubin 5.3 H Conjugated Bilirubin 3.6 H GGT 536 H AST 428 H ALT 412 H Alkaline Phosphatase 333 H Lactate Dehydrogenase 276 H Creatine Kinase 225 H Troponin I < 50 C-Reactive Protein 4.97 H Total Protein 6.7 Albumin 3.0 L Triglycerides 78 Total Cholesterol 101 LDL Cholesterol, Calc 48 HDL Cholesterol 38 L Lipase 282 H Add-On Test Request Cancelled Time Spent with Patient Time Spent with Patient: >50 minutes Time was spent: preparing to see the patient(eg.review tests), obtaining and/or reviewing separately otained hiistory, ordering medications,tests, procedures, referring, communicating with other health nurse behavioral health care, indepentently interpreting results, counseling the patient and care coordination
[2023-11-07] MEDS: oxyCODONE 5 MG TAB 2.5 MG PO (17:17)
[2023-11-07 20:47] LABS: Lab Add On Test DONE
[2023-11-07 20:59] LABS: Creatine Kinase 134 U/L (26-192)
[2023-11-07] MEDS: Lidocaine 5% Patch 1 PATCH TP (21:42)
[2023-11-07] MEDS: cefTRIAXone 2 GM/50 ML BAG IVPB (23:09)
[2023-11-07 23:37] LABS: Acetaminophen < 2 ug/mL (10-30)
[2023-11-08 03:27] VITALS: BP 134/66; PULSE 102; RESP 18; TEMP 37.9; O2SAT 91
[2023-11-08] MEDS: Levothyroxine 50 MCG TAB 25 MCG PO (06:10)
[2023-11-08 07:15] LABS: ALT 258 U/L (14-59); AST 176 U/L (15-37); Albumin 2.9 g/dL (3.4-5.0); Alkaline Phosphatase 308 U/L (46-116); Anion Gap 8.1 mmol/L (3-11); BUN 18 mg/dL (7-18); Bilirubin, Total 1.7 mg/dL (0.2-1.0); C-Reactive Protein 4.57 mg/dL (<or=0.5); CO2 28.9 mmol/L (21.0-32.0); CREATININE 1.1 mg/dL (0.55-1.02); Calcium 8.8 mg/dL (8.5-10.1); Chloride 103 mmol/L (98-107); Creatine Kinase 232 U/L (26-192); Estimated GFR 49.86 (mL/min/1.73m2); Glucose 186 mg/dL (74-106); Lipase 41 U/L (16-77); Sodium 140 mmol/L (136-145); Total Protein 6.3 g/dL (6.4-8.2)
[2023-11-08 07:33] VITALS: BP 169/107; PULSE 95; RESP 20; TEMP 37.4; O2SAT 93
[2023-11-08] MEDS: MORPHine 2 MG/ML SYR IVP ×3 (07:55→21:22)
[2023-11-08] MEDS: Mirabegron 50 MG TABCR PO (08:00)
[2023-11-08] MEDS: Lisinopril 5 MG TAB PO (08:00)
[2023-11-08] MEDS: Docusate Sodium 100 MG CAP PO (08:00)
[2023-11-08] MEDS: Polyethylene Glycol 3350 17 GM PACKET PO (08:00)
[2023-11-08] MEDS: Citalopram 20 MG TAB PO (08:01)
[2023-11-08] MEDS: Lactated Ringers 1,000 ML 82 ML IV ×2 (08:01→20:53)
[2023-11-08] MEDS: Patch Removal 1 EACH TP (08:01)
[2023-11-08] MEDS: Normal Saline Flush 10 ML SYR IVP ×2 (08:02→21:21)
--- NOTE | 2023-11-08 08:54 | W.PM.PROGNOT ---
Date of Service Date of service: 11/08/23 Time of Service: 08:54 Assessment and Plan Assessment and plan (1) Elevated LFTs: Status: Acute Assessment and plan: -Uncertainty of relevance. -Patient has no abdominal pain. -Patient has had an elevated alk phos for some time. -RUQ US without acute findings -Does not have surgical abdomen -Tbili now up to 5.3, with increasing AST and ALT, conj bili 3.6m GGT 536, CK 225, lipase 282 on 11/06 -Tbili, AST, ALT, lipase all significantly improved as compared to previous day, appears to be self resolving at this time -Lipid panel without significant abnormalities -Acetaminophen levels, 5'-nucleotidase, NAVEED, and hep panels all pending -will trend CMP, CK, CRP, and lipase in AM (2) Advanced dementia: Status: Acute (3) Ambulatory dysfunction: Status: Acute Assessment and plan: -Patient is very debilitated and is not safe to go home at this time. She is going to need placement for short-term rehab versus other. -Palliative care consulted; Patient has seen them in the past. Daughter is very involved and parents care/and is very understanding of the situation. -Apprecaite palliative discussion with family; patient remains full code at this time (4) Immobility: Status: Acute Assessment and plan: -apprecaite PT consultation; rec [facility] placement (5) Obstructive sleep apnea: Status: Chronic Assessment and plan: -Patient will not wear CPAP (6) Atelectasis of both lungs: Status: Acute Assessment and plan: -Encourage pulmonary toilet (7) Diabetes mellitus type 2 in obese: Assessment and plan: -A1c is 7 -Patient not currently on any medication (8) Hypothyroidism: (9) Blunt head trauma: Status: Acute (10) Blunt trauma to chest: Status: Acute Assessment and plan: -Stable (11) Multiple fractures of ribs, right side, initial encounter for closed fracture: Status: Acute Assessment and plan: -Pain management protocol -Rib blocks done by anesthesia (12) Acute UTI (urinary tract infection): Status: Acute Assessment and plan: -E. coli. Patient has a history of E. coli UTIs. MAC not available yet -continue ceftriaxone (13) Hypertension: Status: Chronic Assessment and plan: -continue home regimen Subjective Subjective Interval history since last seen: Patient able to state that she has no complaints or concerns at this time. Exam Narrative Exam Narrative: For elderly female laying in bed in no acute distress, oriented to person only, heart regular rhythm, lungs clear to auscultation bilaterally, abdomen soft, nontender, nondistended Objective Last Vital Signs Temp 99.3 F 11/08/23 07:33 Pulse 95 H 11/08/23 07:33 Resp 20 11/08/23 07:33 BP 169/107 H 11/08/23 07:33 Pulse Ox 93 11/08/23 07:33 Laboratory Results - last 24 hr 11/05/23 11/07/23 11/07/23 13:50 12:30 13:50 PT 11.1 INR 1.1 Sodium Potassium Chloride Carbon Dioxide Anion Gap BUN Creatinine Est GFR (CKD-EPI 2020) Glucose Calcium Total Bilirubin Conjugated Bilirubin 3.6 H AST ALT Alkaline Phosphatase Lactate Dehydrogenase 276 H Creatine Kinase 134 225 H C-Reactive Protein Total Protein Albumin Triglycerides 78 Total Cholesterol 101 LDL Cholesterol, Calc 48 HDL Cholesterol 38 L Lipase 282 H Acetaminophen Add-On Test Request DONE 11/07/23 11/07/23 11/08/23 23:00 Unknown 06:28 PT INR Sodium 140 Potassium 4.0 Chloride 103 Carbon Dioxide 28.9 Anion Gap 8.1 BUN 18 Creatinine 1.1 H Est GFR (CKD-EPI 2020) 49.86 Glucose 186 H Calcium 8.8 Total Bilirubin 1.7 H Conjugated Bilirubin AST 176 H ALT 258 H Alkaline Phosphatase 308 H Lactate Dehydrogenase Creatine Kinase 232 H C-Reactive Protein 4.57 H Total Protein 6.3 L Albumin 2.9 L Triglycerides Total Cholesterol LDL Cholesterol, Calc HDL Cholesterol Lipase 41 Acetaminophen < 2 Add-On Test Request Cancelled
--- NOTE | 2023-11-08 08:58 | PDOC.CMPRO ---
Date of service: 11/08/23 Time of Service: 08:58 Care Management Progress Note Progress Note Text Progress Note Text: S/O: Peg was lying in bed when CM met with her. She was very sleepy and gave only minimal responses to questions. Peg has been accepted at [facility] for short term rehab. She was scheduled to transfer today however she has not had a bowel movement since admission (3 days) and the facility would not accept her until she has had a BM. There appears to have been some decline in Peg's condition, although this may be due to the administration of morphine for pain control. Yesterday she was able to ambulate with PT for about 6 feet with moderate assist of 2-3 people. Today she was unable to even stand and required a steady lift to return to bed. Peg has also had a low grade fever for the past 24 hours of 37.7-37.9. A: Peg is an 83 year old female admitted to [facility] on 11/05/23 for blunt head/chest trauma, multiple rib fractures. P: Peg will be evaluated by PT to help determine her level of functioning; awaiting recommendation to proceed with discharge planning. Anticipate Peg will require SNF for short term rehab. She will likely transport via private vehicle vs w/c van, depending on disposition. She will follow up with her PCP and discharge plan of care. CM will continue to follow. SDOH(Care Management) Screening Will the Patient Participate in the Screening?: Unable to obtain
--- NOTE | 2023-11-08 10:09 | W.PM.DS.N ---
Date of service: 11/08/23 Time of Service: 10:10 DS: Diagnosis Discharge Diagnosis (1) Elevated LFTs: Status: Acute Asessment and Plan: - Uncertainty of relevance. -Patient has no abdominal pain. -Patient has had an elevated alk phos for some time. -RUQ US without acute findings -Does not have surgical abdomen -Tbili now up to 5.3, with increasing AST and ALT, conj bili 3.6m GGT 536, CK 225, lipase 282 -Lipid panel without significant abnormalities -Acetaminophen levels, 5'-nucleotidase, NAVEED, and hep panels all pending -all LFTs significantly improved on AM of discharge, no further evaluation necessary (2) Advanced dementia: Status: Acute (3) Ambulatory dysfunction: Status: Acute Asessment and Plan: -Patient is very debilitated and is not safe to go home at this time. She is going to need placement for short-term rehab versus other. -Palliative care consulted; Patient has seen them in the past. Daughter is very involved and parents care/and is very understanding of the situation. -Appreciate palliative discussion with family; patient remains full code at this time (4) Immobility: Status: Acute (5) Obstructive sleep apnea: Status: Chronic (6) Atelectasis of both lungs: Status: Acute (7) Diabetes mellitus type 2 in obese: (8) Hypothyroidism: (9) Blunt head trauma: Status: Acute (10) Blunt trauma to chest: Status: Acute (11) Multiple fractures of ribs, right side, initial encounter for closed fracture: Status: Acute Asessment and Plan: -Pain management protocol -Rib blocks done by anesthesia (12) Acute UTI (urinary tract infection): Status: Acute (13) Hypertension: Status: Chronic Discharge Plan Disposition Patient Disposition: [facility] Facility(SNF) Condition: Good Discharge Details Reason For Visit: Blunt Head/Chest Trauma/Mult Rib Fx/Scalp Lacerati Admit Date/Time: 11/05/23 17:46 Admit Provider: Misha Brenner Attending Provider: Misha Brenner Primary Care Provider: King Ramos Hospital Course Hospital Course: Patient initially presented and was admitted to surgery service for trauma after experiencing a fall. She was noted as having multiple fractured ribs but no other findings. However, her LFTs were noted to have elevated significantly on hospital day 4. He, however this self resolved on the following day. Right upper quadrant ultrasound was negative, and hepatitis panel are currently pending. Ultimately was determined that the patient was stable for discharge to subacute rehab. Home Meds and New Rx's Prescriptions: New levothyroxine 50 mcg Tablet 25 mcg PO 0600 Qty: 90 0RF Continued ibuprofen 600 mg tablet 600 mg PO TID PRN citalopram 20 mg tablet 20 mg PO DAILY lisinopril 5 mg tablet 5 mg PO DAILY Myrbetriq 50 mg tablet extended release 24 hr 50 mg PO DAILY Qty: 90 3RF cholecalciferol (vitamin D3) [Vitamin D3] 2,000 UNIT capsule 5,000 unit PO DAILY atorvastatin 10 MG tablet 10 mg PO DAILY vitamin B complex [Vitamins B Complex] Tablet 1 tab PO DAILY magnesium L-lactate [Magtab] 84 mg tablet extended release 84 mg PO DAILY Patient Comments: Take 1 tablet by mouth once a day levothyroxine 25 mcg tablet 25 mcg PO DAILY Patient Comments: TAKE ONE TABLET BY MOUTH EVERY DAY folic acid 1 mg Tablet 1 mg PO DAILY Qty: 30 0RF Discontinued acetaminophen [Tylenol] 325 mg tablet 325 mg PO QID PRN (Reason: pain) Discharge Instructions Activity:: Activity as Tolerated Equipment/Supplies:: No Equipment Needed Diet:: As Tolerated Discharge Orders Discharge Orders: Discharge Order (Routine); Ordered 11/08/23 Ordered By: Misha Brenner DS: Summary Time Spent with Patient providing and/or coordinating discharge services: Greater than 30 minutes Status at Discharge Functional status at discharge: independent ambulation Overall status at discharge: patient is back to baseline Mental Status: mental status grossly normal Speech and Movement: speech and movement normal Mood: congruent mood Affect: normal affect Quality:SDOH Health Related Social Needs: No Data to Display Exam Narrative Exam Narrative: For elderly female laying in bed in no acute distress, oriented to person only, heart regular rhythm, lungs clear to auscultation bilaterally, abdomen soft, nontender, nondistended Psych Mental Status: mental status grossly normal Speech and Movement: speech and movement normal Mood: congruent mood Affect: normal affect DS: Data Vitals/I&O Vitals and I&O: Vital Signs Temperature 99.3 F 11/08/23 07:33 Temperature Source Tympanic 11/08/23 07:33 Pulse 95 H 11/08/23 07:33 Pulse Rhythm Regular 11/08/23 07:50 Respiratory Rate 20 11/08/23 07:33 Respiratory Effort Normal, Non-Labored 11/08/23 07:50 Respiratory Depth Shallow 11/08/23 07:50 Respiratory Pattern Normal 11/08/23 07:50 Blood Pressure 169/107 H 11/08/23 07:33 Blood Pressure Position Supine 11/05/23 13:38 Pulse Oximetry 93 11/08/23 07:33 Oxygen Delivery Method Room Air 11/08/23 07:33 Oxygen Flow Rate 0 11/08/23 07:33 Pain Level 10 11/08/23 10:08 Comment pT is in a lot of pain, yelling out. 11/08/23 07:33 Intake & Output 11/07/23 11/08/23 11/08/23 17:59 05:59 17:59 Intake Total 1000 / 1000 470.933 / 1470.933 589.067 / 589.067 Output Total 350 / 350 100 / 450 Balance 650 / 650 370.933 / 1020.933 589.067 / 589.067 Intake: IV 1000 / 1000 470.933 / 1470.933 589.067 / 589.067 Output: Urine 350 / 350 100 / 450 Other: Urine Color [place] Urine Appearance Cloudy Clear Clear Comment Urine leaking around catheter; balloon deflated, catheter advanced, balloon re-inflated; leakage appears improved Data Completed and Pending Labs on day of discharge: Labs from last 24 hours 11/08/23 11/07/23 11/07/23 06:28 Unknown 23:00 Haptoglobin PT INR Sodium 140 Potassium 4.0 Chloride 103 Carbon Dioxide 28.9 Anion Gap 8.1 BUN 18 Creatinine 1.1 H Est GFR (CKD-EPI 2020) 49.86 Glucose 186 H Calcium 8.8 Total Bilirubin 1.7 H Conjugated Bilirubin AST 176 H ALT 258 H Alkaline Phosphatase 308 H Lactate Dehydrogenase Creatine Kinase 232 H C-Reactive Protein 4.57 H Total Protein 6.3 L Albumin 2.9 L Triglycerides Total Cholesterol LDL Cholesterol, Calc HDL Cholesterol Lipase 41 5'-Nucleotidase Acetaminophen < 2 Urine Acetaminophen NAVEED Titer NAVEED Titer 2 NAVEED Titer 3 NAVEED Interpretation Hepatitis A IgM Ab Pending Hep Bs Antigen Pending Hep B Core Total Ab Pending Hepatitis C Antibody Pending Add-On Test Request Cancelled 11/07/23 11/07/23 11/07/23 13:50 12:30 06:10 Haptoglobin Pending PT 11.1 INR 1.1 Sodium Potassium Chloride Carbon Dioxide Anion Gap BUN Creatinine Est GFR (CKD-EPI 2020) Glucose Calcium Total Bilirubin Conjugated Bilirubin 3.6 H AST ALT Alkaline Phosphatase Lactate Dehydrogenase 276 H Creatine Kinase 225 H C-Reactive Protein Total Protein Albumin Triglycerides 78 Total Cholesterol 101 LDL Cholesterol, Calc 48 HDL Cholesterol 38 L Lipase 282 H 5'-Nucleotidase Pending Acetaminophen Urine Acetaminophen NAVEED Titer Pending NAVEED Titer 2 Pending NAVEED Titer 3 Pending NAVEED Interpretation Pending Hepatitis A IgM Ab Hep Bs Antigen Hep B Core Total Ab Hepatitis C Antibody Add-On Test Request DONE 11/07/23 11/05/23 00:45 13:50 Haptoglobin PT INR Sodium Potassium Chloride Carbon Dioxide Anion Gap BUN Creatinine Est GFR (CKD-EPI 2020) Glucose Calcium Total Bilirubin Conjugated Bilirubin AST ALT Alkaline Phosphatase Lactate Dehydrogenase Creatine Kinase 134 C-Reactive Protein Total Protein Albumin Triglycerides Total Cholesterol LDL Cholesterol, Calc HDL Cholesterol Lipase 5'-Nucleotidase Acetaminophen Urine Acetaminophen Pending NAVEED Titer NAVEED Titer 2 NAVEED Titer 3 NAVEED Interpretation Hepatitis A IgM Ab Hep Bs Antigen Hep B Core Total Ab Hepatitis C Antibody Add-On Test Request PFSH All Active Problems (Updated 11/06/23 @ 15:32 by Etta Fritz DO) Deformity of both feet (Acute) Elevated LFTs (Acute) Advanced dementia (Acute) Acute UTI (urinary tract infection) (Acute) Poor historian (Acute) Fall (on) (from) other stairs and steps, initial encounter (Acute) Immobility (Acute) Neurodegenerative cognitive impairment (Acute) DJD (degenerative joint disease), lumbar (Acute) History of endometrial cancer (Acute) Patient had a radical and SAMUEL/BSO for endometrial cancer and chemo in 2020 Scalp hematoma (Acute) Cerebral atrophy (Acute) Umbilical hernia (Acute) Spinal stenosis of lumbar region (Acute) Coronary artery calcification seen on CAT scan (Acute) Calcification of mitral valve (Acute) Atelectasis of both lungs (Acute) Multiple fractures of ribs, right side, initial encounter for closed fracture (Acute) Blunt trauma to chest (Acute) Blunt head trauma (Acute) Sleep apnea (Acute) Excessive cerumen in left ear canal (Acute) Folate deficiency anemia (Acute) Discharge planning issues (Acute) DVT prophylaxis (Acute) Ambulatory dysfunction (Acute) Obstructive sleep apnea (Chronic) Hypertension (Chronic) Urgency incontinence (Acute 11/05/16) Tinnitus (Acute 12/31/13) Sensorineural hearing loss, bilateral (Acute 12/31/13) Medical History (Updated 11/06/23 @ 15:32 by Etta Fritz DO) Hypomagnesemia Frequency of micturition (11/05/16) Abnormal vaginal bleeding Thickened endometrium Elevated troponin Mild cognitive impairment Hyponatremia Dehydration Acute respiratory failure with hypoxia Aspiration pneumonitis Sepsis Palliative care patient Onychomycosis Sensorineural hearing loss Hypercholesteremia Anxiety Depression Urinary incontinence Metabolic syndrome Hypothyroidism Diabetes mellitus type 2 in obese Neuropathy Vertigo Dysphagia Irregular bowel habits Dry mouth Low back pain Lordosis Frequent falls Surgical History Status post bilateral knee replacements Hx of cholecystectomy Family History Brother Heart disease Dementia Depression Father Heart disease Dementia Depression Mother Dementia Depression Social History Smoking/Tobacco Use Status: Never Smoking risk assessment performed?: Yes Alcohol Intake: current Alcohol Intake frequency: holidays/special occasions only Drug use: Never Substance use type: does not use Household members: spouse Housing: apartment What is your relationship status?: Panel score (0-1 are the most socially isolated patients): 1 Seatbelt use: always Do you feel safe at home: Yes Do you feel safe in your relationship?: Yes Time Spent with Patient Time Spent with Patient: <45 minutes Time was spent: preparing to see the patient(eg.review tests), obtaining and/or reviewing separately otained hiistory, ordering medications,tests, procedures, referring, communicating with other health skin care instructor, indepentently interpreting results, counseling the patient and care coordination
[2023-11-08 10:33] LABS: Haptoglobin 210 mg/dL (32-197)
[2023-11-08] MEDS: Enoxaparin 40 MG/0.4 ML SYR SC (10:36)
--- NOTE | 2023-11-08 10:42 | PDOC.CMDIS ---
Date of service: 11/08/23 Time of Service: 10:43 Care Management Discharge Plan Reason for Hospitalization: Blunt head/chest trauma; multiple rib fx SDOH Health Related Social Needs: No Data to Display
[2023-11-08] MEDS: Bisacodyl 10 MG SUPP PR (11:24)
[2023-11-08 11:48] VITALS: BP 128/69; PULSE 99; RESP 18; TEMP 37; O2SAT 90
--- NOTE | 2023-11-08 14:28 | W.PM.PROGNOT ---
Date of Service Date of service: 11/08/23 Time of Service: 14:28 Assessment and Plan Assessment and plan (1) Elevated LFTs: Status: Acute Assessment and plan: -Uncertainty of relevance. -Patient has no abdominal pain. -Patient has had an elevated alk phos for some time. -RUQ US without acute findings -Does not have surgical abdomen -Tbili now up to 5.3, with increasing AST and ALT, conj bili 3.6m GGT 536, CK 225, lipase 282 on 11/06 -Tbili, AST, ALT, lipase all significantly improved as compared to previous day, appears to be self resolving at this time -Lipid panel without significant abnormalities -Acetaminophen levels, 5'-nucleotidase, NAVEED, and hep panels all pending (2) Advanced dementia: Status: Acute (3) Constipation: Status: Acute Assessment and plan: -patient has not had documented BM since admisison -fleets enema, mirilax and colase all ordered (4) Ambulatory dysfunction: Status: Acute Assessment and plan: -Patient is very debilitated and is not safe to go home at this time. She is going to need placement for short-term rehab versus other. -Palliative care consulted; Patient has seen them in the past. Daughter is very involved and parents care/and is very understanding of the situation. -Apprecaite palliative discussion with family; patient remains full code at this time (5) Immobility: Status: Acute Assessment and plan: -apprecaite PT consultation; rec [facility] placement (6) Obstructive sleep apnea: Status: Chronic Assessment and plan: -Patient will not wear CPAP (7) Atelectasis of both lungs: Status: Acute Assessment and plan: -Encourage pulmonary toilet (8) Diabetes mellitus type 2 in obese: Assessment and plan: -A1c is 7 -Patient not currently on any medication (9) Hypothyroidism: (10) Blunt head trauma: Status: Acute (11) Blunt trauma to chest: Status: Acute Assessment and plan: -Stable (12) Multiple fractures of ribs, right side, initial encounter for closed fracture: Status: Acute Assessment and plan: -Pain management protocol -Rib blocks done by anesthesia (13) Acute UTI (urinary tract infection): Status: Acute Assessment and plan: -E. coli. Patient has a history of E. coli UTIs. MAC not available yet -continue ceftriaxone (14) Hypertension: Status: Chronic Assessment and plan: -continue home regimen Subjective Subjective Interval history since last seen: Patient able to state that she has no complaints or concerns at this time. Patient unable to [facility] to [facility] as she has not had a documented bowel movement since admission. Exam Narrative Exam Narrative: For elderly female laying in bed in no acute distress, oriented to person only, heart regular rhythm, lungs clear to auscultation bilaterally, abdomen soft, nontender, nondistended Psych Mental Status: mental status grossly normal Speech and Movement: speech and movement normal Mood: congruent mood Affect: normal affect Objective Last Vital Signs Temp 98.6 F 11/08/23 11:48 Pulse 99 H 11/08/23 11:48 Resp 18 11/08/23 11:48 BP 128/69 11/08/23 11:48 Pulse Ox 90 L 11/08/23 11:48 Laboratory Results - last 24 hr 11/05/23 11/07/23 11/07/23 13:50 06:10 13:50 Haptoglobin 210 H Sodium Potassium Chloride Carbon Dioxide Anion Gap BUN Creatinine Est GFR (CKD-EPI 2020) Glucose Calcium Total Bilirubin AST ALT Alkaline Phosphatase Creatine Kinase 134 C-Reactive Protein Total Protein Albumin Lipase Acetaminophen Add-On Test Request DONE 11/07/23 11/08/23 23:00 06:28 Haptoglobin Sodium 140 Potassium 4.0 Chloride 103 Carbon Dioxide 28.9 Anion Gap 8.1 BUN 18 Creatinine 1.1 H Est GFR (CKD-EPI 2020) 49.86 Glucose 186 H Calcium 8.8 Total Bilirubin 1.7 H AST 176 H ALT 258 H Alkaline Phosphatase 308 H Creatine Kinase 232 H C-Reactive Protein 4.57 H Total Protein 6.3 L Albumin 2.9 L Lipase 41 Acetaminophen < 2 Add-On Test Request Time Spent with Patient Time Spent with Patient: >50 minutes Time was spent: preparing to see the patient(eg.review tests), obtaining and/or reviewing separately otained hiistory, ordering medications,tests, procedures, referring, communicating with other health care mgr, indepentently interpreting results, counseling the patient and care coordination
[2023-11-08 15:04] LABS: ANA Interpretation Negative (Negative)
[2023-11-08 15:42] VITALS: BP 138/86; PULSE 101; RESP 19; TEMP 37.7; O2SAT 91
--- NOTE | 2023-11-08 15:44 | PT.INTREAT ---
PT Notes Visit Reasons: Blunt Head/Chest Trauma/Mult Rib Fx/Scalp Lacerati Physical Therapy Inpatient Treatment Note Date: 11/08/2023 Precautions: Fall. Standard. Activity as tolerated. Impaired safety awareness. Subjective: Very somnolent. Needed maximal encouragement to participate in therapy today. Highly anxious about moving. Objective: General Observation: Telemetry monitoring in place. High BMI. IV in left UE. Gayle catheter in place. Mental Status: Somnolent, unable to fully initiate and complete instructions. Pain: Moderate to severe pain response Vital Signs: Closely monitored by nursing staff and have been WNL Bed Mobility/Transfers: Maximal verbal, visual, and tactile cueing provided for use of B hands as needed for support, movement sequence, AD management, and posture to reduce fall risk and minimize pain report Rolling moderate assist of 3 as patient has been highly anxious about movement Supine to sit moderate assist of 3 as patient has been highly anxious about movement Sit to stand with maximal assist of 2 and moderate assist of a third person. Needed to use STEDY lift in putting patient back to bed as it was not safe to walk her to the bedside recliner. Stand to sit with maximal assist of 2 and moderate assist of a third person. Needed to use STEDY lift in putting patient back to bed as it was not safe to walk her to the bedside recliner. Bed to reclining chair DEFERRED due to safety issues and limited level of alertness Gait: DEFERRED due to safety issues and limited level of alertness. Patient unable to follow instructions, highly anxious about moving. Balance: Static Sitting: Poor Dynamic Sitting: Poor Static Standing: Unable Dynamic Standing: Unable AASSESSMENT: Very somnolent. Needed maximal encouragement to participate in therapy today. Highly anxious about moving. Significant decline in level of alertness and safety awareness compared to yesterday. MD and case planner have been notified. Use STEDY lift for all essential transfers as of today for safety. Treatment today focused on reassessing mobility level and safe transfer status for nursing staff. Also provided assistance with bed mobility tasks for safety. Plan of Care/Treatment Plan: 1-2x/day, 7 days/week x 1 week. Plan of care has been reviewed with the CUTTING INSPECTOR providing the service under Physical Therapy direction. Initiate Physical Therapy intervention for pain management as needed, strengthening, bed mobility, transfers, gait, stairs, balance training, and use of assistive device. DISCHARGE RECOMMENDATIONS: [] Home with no services [] [] Home with services [specify] [] Home with outpatient PT [] [X] SNF for continued rehabilitation patient will benefit from halfway facility placement for continued skilled physical therapy services in order to progress mobility level, strength, and balance in preparation for a safe discharge to home. [] [facility] [] [] SNF versus LTC based on ability to participate and progress [] TREATMENT CODE/TIME: 08305 x 25 minutes for 2 units (15:10-15:35).
--- NOTE | 2023-11-08 15:47 | PT.INTREAT ---
PT Notes Visit Reasons: Blunt Head/Chest Trauma/Mult Rib Fx/Scalp Lacerati Date: 11/08/23 PRECAUTIONS: fall, standard, activity as tolerated, impaired safety awareness. SUBJECTIVE: Pt in bed when approached for therapy this afternoon, pt highly somnolent, not able to stay awake OBJECTIVE: ? PAIN: VITALS: closely monitored by nursing Therapeutic Activities 76981: Direct one-on-one instruction in dynamic activities to improve functional performance. ?? BED MOBILITY/TRANSFERS? Rolling L/R: max A Supine-sit: ? max A? Sit-supine: ?max A ? Sit-stand: ?not performed ? Stand-sit: ??not performed ? Bed-Chair:? ?not performed? Chair-bed: not performed Provided skilled cues and instruction on performance and technique throughout. ? Therapeutic Exercises 07362: Direct one-on-one instruction in therapeutic exercises to develop strength, endurance, range of motion and flexibility. Exercises BLE PROM all planes [id number] each LUE PROM all planes [id number] each Gentle RUE PROM all planes [id number] each within pain free range. Provided skilled instruction in proper exercise performance Provided skilled manual cues to facilitate proper muscle recruitment and/or form: ASSESSMENT:?Pt not able to follow instructions, having a difficult time staying awake, Supervising PT, charge nurse informed of pt condition and was able to assist with pt bed repositioning for ADL's and pressure sore prevention. PLAN: continue pt engagement to achieve functional mobility goals until pt is ready for transfer to SNF. TREATMENT CODE/TIME: [id number] 15mins (2:50-3:05pm)
[2023-11-08] MEDS: oxyCODONE 5 MG TAB 2.5 MG PO (15:52)
[2023-11-08 16:55] VITALS: TEMP 37
[2023-11-08 18:37] LABS: Hepatitis A Antibody IgM Negative (Negative); Hepatitis B Core Antibody Negative (Negative); Hepatitis B surface Ag Negative (Negative); Hepatitis C Ab w Rflx HCV PCR Negative (Negative)
[2023-11-08] MEDS: cefTRIAXone 2 GM/50 ML BAG IVPB (21:22)
[2023-11-08] MEDS: Lidocaine 5% Patch 1 PATCH TP (21:23)
[2023-11-09 00:03] VITALS: BP 112/79; PULSE 84; RESP 17; TEMP 36.7; O2SAT 93
[2023-11-09] MEDS: Normal Saline Flush 10 ML SYR IVP ×2 (04:32→10:15)
[2023-11-09] MEDS: MORPHine 2 MG/ML SYR IVP (04:32)
[2023-11-09 06:55] LABS: ALT 235 U/L (14-59); Albumin 2.8 g/dL (3.4-5.0); Alkaline Phosphatase 355 U/L (46-116); Anion Gap 10.3 mmol/L (3-11); BUN 15 mg/dL (7-18); Bilirubin, Total 2.2 mg/dL (0.2-1.0); CO2 27.7 mmol/L (21.0-32.0); CREATININE 0.9 mg/dL (0.55-1.02); Calcium 8.7 mg/dL (8.5-10.1); Chloride 103 mmol/L (98-107); Estimated GFR 63.43 (mL/min/1.73m2); Glucose 183 mg/dL (74-106); Sodium 141 mmol/L (136-145); Total Protein 6.1 g/dL (6.4-8.2)
[2023-11-09 07:21] LABS: AST 183 U/L (15-37)
--- NOTE | 2023-11-09 09:31 | CMDISCH_ITS ---
Date of service: 11/09/23 Time of Service: 09:31 LACE Index Scoring Tool Questions: Length of Stay (in days): 4 - 6 Was the patient admitted via the E.D.?: Yes Comorbidities: Diabetes w/o Complication, Any Tumor and Liver or Renal Disease E.D. Visits: 1 Answers: Total Score: 13 Risk of Readmission: High Risk Care Management Discharge Plan Reason for Hospitalization: Blunt head/chest trauma; multiple rib fx Discharge Plan: Peg will be transferred to [facility] for short term rehab prior to returning home. She will follow up with the facility providers and plan of care and transport via EMS coordinated by CM. Patient/Family Education Needs: Review discharge instructions and limitations, discussion of self care needs including ask me three. Services Needed at Discharge: [facility] Health Related Social Needs: No Data to Display
[2023-11-09] MEDS: Mirabegron 50 MG TABCR PO (10:11)
[2023-11-09] MEDS: oxyCODONE 5 MG TAB 2.5 MG PO (10:11)
[2023-11-09] MEDS: Enoxaparin 40 MG/0.4 ML SYR SC (10:11)
[2023-11-09] MEDS: Polyethylene Glycol 3350 17 GM PACKET PO (10:12)
[2023-11-09] MEDS: Lactated Ringers 1,000 ML 82 ML IV ×2 (10:12→10:13)
[2023-11-09] MEDS: Magnesium Lactate-SR 84 MG TABCR PO (10:12)
[2023-11-09] MEDS: Docusate Sodium 100 MG CAP PO (10:12)
[2023-11-09] MEDS: Lisinopril 5 MG TAB PO (10:12)
[2023-11-09] MEDS: Citalopram 20 MG TAB PO (10:12)
[2023-11-09] MEDS: Patch Removal 1 EACH TP (10:15)
--- NOTE | 2023-11-09 14:14 | NUR.NOTE ---
Nursing Note: report called and given to SHE Payne at [facility] rehab, at this time
[2023-11-11 12:31] LABS: Acetaminophen, Urine NEGATIVE
== END 2023-11-09 13:52 | disposition skilled nursing facility (03) | DRG 184 ==
LOC: ER 18:06 → MS 19:47
PROVIDERS: Surgery; Admitting Provider Family Medicine; Emergency Provider Emergency Medicine; PCP Internal Medicine; Visit Provider Family Medicine
DX: S22.41XA Multiple fractures of ribs, right side, initial encounter for closed fracture (principal); J98.11 Atelectasis; N39.0 Urinary tract infection, site not specified; S00.03XA Contusion of scalp, initial encounter; W10.8XXA Fall (on) (from) other stairs and steps, initial encounter; Z85.42 Personal history of malignant neoplasm of other parts of uterus; N39.41 Urge incontinence; H90.3 Sensorineural hearing loss, bilateral; I34.81 Nonrheumatic mitral (valve) annulus calcification; I10 Essential (primary) hypertension; E78.00 Pure hypercholesterolemia, unspecified; F41.9 Anxiety disorder, unspecified; K59.00 Constipation, unspecified; I25.10 Atherosclerotic heart disease of native coronary artery without angina pectoris; M48.061 Spinal stenosis, lumbar region without neurogenic claudication; K42.9 Umbilical hernia without obstruction or gangrene; G47.33 Obstructive sleep apnea (adult) (pediatric); R26.2 Difficulty in walking, not elsewhere classified; E11.9 Type 2 diabetes mellitus without complications; E66.9 Obesity, unspecified; E03.9 Hypothyroidism, unspecified; E88.810 Metabolic syndrome; G31.89 Other specified degenerative diseases of nervous system; F03.C0 Unspecified dementia, severe, without behavioral disturbance, psychotic disturbance, mood disturbance, and anxiety; R79.89 Other specified abnormal findings of blood chemistry; Z74.09 Other reduced mobility; B96.20 Unspecified Escherichia coli [E. coli] as the cause of diseases classified elsewhere; Z87.440 Personal history of urinary (tract) infections; Z68.37 Body mass index [BMI] 37.0-37.9, adult
CPT/HCPCS: 00123; 36415; 51702; 74177; 76942; 80053; 80061; 80307; 82550; 83690; 86704; 86709; 86803; 87077; 87340; 93005; 96374; 97162; 97530; 99223; 99232; 99285; J1650; 70450; 71046; 71260; 72125; 73030; 76700; 80329; 81003; 81015; 82248; 82977; 83010; 83036; 83615; 83915; 84443; 84484; 85025; 85610; 85730; 86038; 86140; 87086; 87186; 93010; 94760; 99222; 99238; C9290; J0665; J0696; J2270; J3490

== ENCOUNTER 2023-11-14 06:28 | Outpatient (REF) | payer MEDICARE, SELFPAY ==
[2023-11-14 06:48] LABS: ALT 154 U/L (14-59); AST 61 U/L (15-37); Albumin 2.8 g/dL (3.4-5.0); Alkaline Phosphatase 470 U/L (46-116); Anion Gap 8.9 mmol/L (3-11); BUN 15 mg/dL (7-18); Bilirubin, Total 1.1 mg/dL (0.2-1.0); CO2 30.1 mmol/L (21.0-32.0); CREATININE 0.8 mg/dL (0.55-1.02); Calcium 8.7 mg/dL (8.5-10.1); Chloride 106 mmol/L (98-107); Estimated GFR 73.06 (mL/min/1.73m2); Glucose 203 mg/dL (74-106); Potassium 3.9 mmol/L (3.5-5.1); Sodium 145 mmol/L (136-145); Total Protein 5.6 g/dL (6.4-8.2)
[2023-11-14 06:59] LABS: Abs Immature Grans 0.05 10^3/uL (0.0-0.06); Absolute Basophil Count 0.05 10^3/uL (0.0-0.2); Absolute Eosinophil Count 0.44 10^3/uL (0.0-0.7); Absolute Lymphocyte Count 0.67 10^3/uL (1.2-3.4); Absolute Monocyte Count 0.75 10^3/uL (0.1-0.8); Absolute Neutrophil Count 6.59 10^3/uL (1.2-6.7); Basophils % 0.6; Eosinophils % 5.1; HCT 37.4 % (36.0-46.0); HGB 12.3 g/dL (11.2-15.7); Immature Grans % 0.6; Lymphocytes % 7.8; MCH 34.5 pg (27.0-33.0); MCHC 32.9 % (32.0-36.0); MCV 105 fL (80-95); Monocytes % 8.8; Neutrophils % 77.1; Platelet Count 226 10^3/uL (130-400); RBC 3.57 10^6/uL (3.93-5.22); RDW 14.5 % (11.7-14.6); RDW-SD 56.4 fL; WBC 8.55 10^3/uL (4.4-10.8)
[2023-11-14 09:12] LABS: Prothrombin Time 9.8 sec (9.1-11.1)
[2023-11-14 09:28] LABS: TSH 4.76 uIU/Ml (0.36-3.74)
== END 2023-11-14 06:29 | disposition home or self-care (01) ==
LOC: LBN 06:28
PROVIDERS: PCP Internal Medicine; Visit Provider Family Medicine
DX: D72.819 Decreased white blood cell count, unspecified (principal); I80.3 Phlebitis and thrombophlebitis of lower extremities, unspecified; D64.9 Anemia, unspecified
CPT/HCPCS: 80053; 84443; 85025; 85610

== ENCOUNTER 2023-12-27 12:26 | Outpatient (REF) | payer MEDICARE, SELFPAY ==
[2023-12-27 13:49] LABS: TSH 2.28 uIU/Ml (0.36-3.74)
== END 2023-12-27 12:27 | disposition home or self-care (01) ==
LOC: LBN 12:26
PROVIDERS: PCP Nurse Practitioner Family; Visit Provider Family Medicine
DX: E03.9 Hypothyroidism, unspecified (principal)
CPT/HCPCS: 84443

== ENCOUNTER 2024-01-04 18:18 | Outpatient (REF) | payer MEDICARE, SELFPAY ==
[2024-01-04 18:20] LABS: TSH (W/Ref FT4) 1.78 uIU/mL (0.36-3.74)
== END 2024-01-04 18:19 | disposition home or self-care (01) ==
LOC: LBN 18:18
PROVIDERS: PCP Nurse Practitioner Family; Visit Provider Nurse Practitioner Family
DX: E03.9 Hypothyroidism, unspecified (principal)
CPT/HCPCS: 84443

== ENCOUNTER 2024-02-02 14:12 | Outpatient (REF) | payer MEDICARE, SELFPAY ==
[2024-02-02 19:24] LABS: Abs Immature Grans 0.02 10^3/uL (0.0-0.06); Absolute Basophil Count 0.03 10^3/uL (0.0-0.2); Absolute Eosinophil Count 0.37 10^3/uL (0.0-0.7); Absolute Lymphocyte Count 0.65 10^3/uL (1.2-3.4); Absolute Monocyte Count 0.61 10^3/uL (0.1-0.8); Absolute Neutrophil Count 5.98 10^3/uL (1.2-6.7); Basophils % 0.4 %; Eosinophils % 4.8 %; HCT 37.7 % (36.0-46.0); HGB 12.7 g/dL (11.2-15.7); Immature Grans % 0.3 %; Lymphocytes % 8.5 %; MCH 34.8 pg (27.0-33.0); MCHC 33.7 % (32.0-36.0); MCV 103 fL (80-95); MPV 10.2 fL (8.0-11.0); Platelet Count 199 10^3/uL (130-400); RBC 3.65 10^6/uL (3.93-5.22); RDW 15.1 % (11.7-14.6); RDW-SD 57.8 fL; WBC 7.66 10^3/uL (4.4-10.8)
[2024-02-02 19:40] LABS: Hemoglobin A1C 6.8 % (<5.7)
[2024-02-02 19:59] LABS: ALT 18 U/L (14-59); AST 17 U/L (15-37); Albumin 3.3 g/dL (3.4-5.0); Alkaline Phosphatase 133 U/L (46-116); Anion Gap 6.6 mmol/L (3-11); BUN 10 mg/dL (7-18); Bilirubin, Total 1.13 mg/dL (0.2-1.0); CO2 29.4 mmol/L (21.0-32.0); CREATININE 0.9 mg/dL (0.55-1.02); Chloride 102 mmol/L (98-107); Estimated GFR 63.43 (mL/min/1.73m2); Glucose 194 mg/dL (74-106); Potassium 4.1 mmol/L (3.5-5.1); Sodium 138 mmol/L (136-145); Total Protein 6.1 g/dL (6.4-8.2); Vitamin B12 1364 pg/mL (193-986)
[2024-02-02 20:02] LABS: Folate > 20.0 ng/mL (8.6-20.0)
== END 2024-02-02 14:13 | disposition home or self-care (01) ==
LOC: NCHCN 14:12
PROVIDERS: PCP Nurse Practitioner Family; Visit Provider Nurse Practitioner Family
DX: D75.89 Other specified diseases of blood and blood-forming organs (principal); R94.5 Abnormal results of liver function studies; E11.9 Type 2 diabetes mellitus without complications
CPT/HCPCS: 80053; 82607; 82746; 83036; 85025

== ENCOUNTER 2024-09-13 13:16 | Outpatient (REF) | payer MEDICARE, SELFPAY ==
[2024-09-13 13:58] LABS: Abs Immature Grans 0.05 10^3/uL (0.0-0.06); Absolute Basophil Count 0.05 10^3/uL (0.0-0.2); Absolute Eosinophil Count 0.67 10^3/uL (0.0-0.7); Absolute Lymphocyte Count 0.78 10^3/uL (1.2-3.4); Absolute Monocyte Count 0.64 10^3/uL (0.1-0.8); Basophils % 0.6 %; Eosinophils % 7.9 %; HCT 39.9 % (36.0-46.0); HGB 13.4 g/dL (11.2-15.7); Immature Grans % 0.6 %; Lymphocytes % 9.2 %; MCH 34.1 pg (27.0-33.0); MCHC 33.6 % (32.0-36.0); MCV 102 fL (80-95); MPV 10.2 fL (8.0-11.0); Monocytes % 7.5 %; Neutrophils % 74.2 %; Platelet Count 264 10^3/uL (130-400); RBC 3.93 10^6/uL (3.93-5.22); RDW 14.6 % (11.7-14.6); RDW-SD 55.2 fL; WBC 8.49 10^3/uL (4.4-10.8)
[2024-09-13 14:49] LABS: Hemoglobin A1C 7.3 % (<5.7)
[2024-09-13 15:03] LABS: ALT 25 U/L (14-59); AST 19 U/L (15-37); Albumin 3.4 g/dL (3.4-5.0); Alkaline Phosphatase 146 U/L (46-116); Anion Gap 8.6 mmol/L (3-11); BUN 18 mg/dL (7-18); Bilirubin, Total 0.74 mg/dL (0.2-1.0); CO2 29.4 mmol/L (21.0-32.0); CREATININE 1.1 mg/dL (0.55-1.02); Calcium 9.5 mg/dL (8.5-10.1); Chloride 102 mmol/L (98-107); Estimated GFR 49.55 (mL/min/1.73m2); Glucose 219 mg/dL (74-106); Potassium 4.7 mmol/L (3.5-5.1); Sodium 140 mmol/L (136-145); TSH (W/Ref FT4) 2.73 uIU/mL (0.36-3.74); Total Protein 6.5 g/dL (6.4-8.2)
== END 2024-09-13 13:17 | disposition home or self-care (01) ==
LOC: NCHCN 13:16
PROVIDERS: PCP Nurse Practitioner Family; Visit Provider Nurse Practitioner Family
DX: E11.9 Type 2 diabetes mellitus without complications (principal); I10 Essential (primary) hypertension; E03.9 Hypothyroidism, unspecified
CPT/HCPCS: 80053; 83036; 84443; 85025

== ENCOUNTER 2025-02-28 14:38 | Outpatient (REF) | payer MEDICARE, SELFPAY ==
[2025-02-28 14:07] LABS: Hemoglobin A1C 7.0 % (<5.7)
[2025-02-28 14:11] LABS: ALT 26 U/L (14-59); AST 20 U/L (15-37); Albumin 3.4 g/dL (3.4-5.0); Alkaline Phosphatase 141 U/L (46-116); Anion Gap 6.9 mmol/L (3-11); BUN 14 mg/dL (7-18); Bilirubin, Total 0.7 mg/dL (0.2-1.0); CO2 27.1 mmol/L (21.0-32.0); Calcium 9.3 mg/dL (8.5-10.1); Chloride 102 mmol/L (98-107); Estimated GFR 63.04 (mL/min/1.73m2); Glucose 232 mg/dL (74-106); Potassium 4.4 mmol/L (3.5-5.1); Sodium 136 mmol/L (136-145); TSH (W/Ref FT4) 2.87 uIU/mL (0.36-3.74); Total Protein 6.6 g/dL (6.4-8.2)
== END 2025-02-28 14:39 | disposition home or self-care (01) ==
LOC: NCHCN 14:38
PROVIDERS: PCP Nurse Practitioner Family; Visit Provider Nurse Practitioner Family
DX: E11.9 Type 2 diabetes mellitus without complications (principal); I10 Essential (primary) hypertension
CPT/HCPCS: 80053; 83036; 84443

== ENCOUNTER 2025-06-25 14:32 | Outpatient (REF) | payer MEDICARE, SELFPAY ==
[2025-06-25 20:59] LABS: Abs Immature Grans 0.06 10^3/uL (0.0-0.06); HCT 42.0 % (36.0-46.0); HGB 14.8 g/dL (11.2-15.7); Immature Grans % 0.5 %; MCH 36.3 pg (27.0-33.0); MCHC 35.2 % (32.0-36.0); MCV 103 fL (80-95); MPV 10.1 fL (8.0-11.0); Platelet Count 277 10^3/uL (130-400); RBC 4.08 10^6/uL (3.93-5.22); RDW 14.5 % (11.7-14.6); RDW-SD 55.2 fL; WBC 11.06 10^3/uL (4.4-10.8)
[2025-06-25 21:15] LABS: ALT 21 U/L (10-49); AST 26 U/L (<34); Albumin 4.0 g/dL (3.2-5.0); Alkaline Phosphatase 132 U/L (46-116); Anion Gap 9.2 mmol/L (3-11); BUN 15 mg/dL (9-23); Bilirubin, Total 1.00 mg/dL (0.2-1.2); CO2 28.8 mmol/L (20.0-31.0); Calcium 9.5 mg/dL (8.3-10.6); Chloride 100 mmol/L (98-107); Glucose 247 mg/dL (74-106); Potassium 4.6 mmol/L (3.5-5.1); Sodium 138 mmol/L (136-145); Total Protein 6.5 g/dL (5.7-8.2)
[2025-06-25 21:36] LABS: Hemoglobin A1C 7.5 % (<5.7)
== END 2025-06-25 14:33 | disposition home or self-care (01) ==
LOC: NCHCN 14:32
PROVIDERS: PCP Nurse Practitioner Family; Visit Provider Nurse Practitioner Family
DX: I10 Essential (primary) hypertension (principal); E11.9 Type 2 diabetes mellitus without complications; D75.89 Other specified diseases of blood and blood-forming organs
CPT/HCPCS: 80053; 83036; 85025